=== PATIENT | female | born 1945 | race Caucasian/White ===

== ENCOUNTER → 2017-04-11 | Outpatient (CLI) | payer MEDICARE ==
--- NOTE | 2017-04-12 10:30 | MM ---
Reason for exam: screening (asymptomatic). Last mammogram was performed 8 years and 9 months ago. History: Patient is postmenopausal and is nulliparous. Physical Findings: A clinical breast exam by your physician is recommended on an annual basis and results should be correlated with mammographic findings. MG 3D Screening Mammo W/Cad Bilateral CC and MLO view(s) were taken. Prior study comparison: July 15, 2008, bilateral diagnostic digital mammog. November 24, 2006, CAD bilateral diagnostic mammogram. No significant changes when compared with prior studies. ASSESSMENT: Benign, BI-RAD 2 RECOMMENDATION: Routine screening mammogram of both breasts in 1 year.
== END | disposition home or self-care (01) ==
LOC: RADMAMWWP 12:42
PROVIDERS: ATTEND Family Medicine
DX: Z12.31 Encounter for screening mammogram for malignant neoplasm of breast (principal)
CPT/HCPCS: 77063; G0202

== ENCOUNTER 2018-07-31 13:35 | Emergency (ER) | payer MEDICARE ==
[2018-07-31] MEDS ORDERED: OXYMETAZOLINE 0.05% NASL SPRAY 1 SPRAY BOTTLE NASAL STA (14:23)
--- NOTE | 2018-07-31 14:44 | ED ---
ENT HPI - General Chief complaint: ENT Stated complaint: nose bleed Time Seen by Provider: 07/31/18 14:04 Source: patient, EMS Mode of arrival: EMS Limitations: physical limitation - History of Present Illness Initial comments: 72-year-old female patient with past medical history significant for atrial fibrillation with current use of Coumadin presents to the emergency department today for evaluation of epistaxis. Patient states she has had a constant nosebleed since 9:30 this morning. States that this is her third nosebleed over the last 3-4 months. States that her physician believes is related to the weather. Patient denies any dizziness or weakness with this. States most of the bleeding is coming from the right side. She denies any nausea or vomiting. Denies any signs of bleeding from anywhere else. She does have a colostomy states that her most recent output has been dark in color. Patient denies any recent rash, shortness breath, chest pain, abdominal pain, diarrhea, constipation, back pain, numbness, tingling, dizziness, weakness, hematuria, dysuria, urinary urgency, urinary frequency, headache, visual changes, or any other complaints. - Related Data Home Medications Medication Instructions Recorded Confirmed ALPRAZolam [Xanax] 0.25 mg PO DAILY PRN 07/31/18 07/31/18 Atorvastatin [Lipitor] 40 mg PO MOWESA 07/31/18 07/31/18 Digoxin [Digitek] 125 mcg PO HS 07/31/18 07/31/18 Furosemide [Lasix] 20 mg PO DAILY 07/31/18 07/31/18 Warfarin [Coumadin] 5 mg PO DAILY@1500 07/31/18 07/31/18 oxyCODONE HCL/ACETAMINOPHEN 1 tab PO TID PRN 07/31/18 07/31/18 [Percocet 7.5-325 mg] Allergies Allergy/AdvReac Type Severity Reaction Status Date / Time sertraline [From Zoloft] Allergy Unknown Verified 07/31/18 14:06 Review of Systems ROS Statement: Those systems with pertinent positive or pertinent negative responses have been documented in the HPI. ROS Other: All systems not noted in ROS Statement are negative. Past Medical History Past Medical History: Atrial Fibrillation History of Any Multi-Drug Resistant Organisms: None Reported Additional Past Surgical History / Comment(s): collostomy Past Psychological History: No Psychological Hx Reported Smoking Status: Never smoker Past Alcohol Use History: None Reported Past Drug Use History: None Reported General Exam Limitations: physical limitation General appearance: alert, in no apparent distress, other (This is a well- developed, well-nourished elderly female patient in no acute distress. Vital signs upon presentation are temperature 98.3F, pulse 105, respirations 19, blood pressure 178/97, pulse ox 96% on room air.) Eye exam: Present: normal appearance, PERRL, EOMI. Absent: scleral icterus, conjunctival injection, periorbital swelling ENT exam: Present: mucous membranes moist, other (Patient has bleeding from the right nostril). Absent: normal exam, normal oropharynx Respiratory exam: Present: normal lung sounds bilaterally. Absent: respiratory distress, wheezes, rales, rhonchi, stridor Cardiovascular Exam: Present: regular rate, normal rhythm, normal heart sounds. Absent: systolic murmur, diastolic murmur, rubs, gallop, clicks GI/Abdominal exam: Present: soft, normal bowel sounds. Absent: distended, tenderness, guarding, rebound, rigid Neurological exam: Present: alert, oriented X3, CN II-XII intact Psychiatric exam: Present: normal affect, normal mood Skin exam: Present: warm, dry, intact, normal color. Absent: rash Course Vital Signs 07/31/18 13:46 Temperature 98.3 F Pulse Rate 105 H Respiratory 19 Rate Blood Pressure 178/97 O2 Sat by Pulse 96 Oximetry Medical Decision Making - Medical Decision Making 72-year-old female patient presented to the emergency department today for evaluation of right nasal epistaxis. Physical examination did reveal active bleeding from the right nostril. Was unable to visualize the area of the bleeding. We did have patient blow out all clots, we instilled nasal Afrin and applied pressure for 20 minutes. This was sufficient to get the bleeding to cease. We did check INR which was 4.3. She is instructed to hold Coumadin for the next 2 doses. She is instructed to call her job interviewer's the morning and inform them of her level. We did discuss management of epistaxis at home, she is instructed to return if she is unable to get the bleeding to stop utilizing these methods. She is instructed use nasal saline 2-3 times daily to keep nasal passages moist also use humidifier at home. Return parameters were discussed in detail. She verbalizes understanding and agrees with this plan. - Lab Data Result diagrams: 07/31/18 15:06 Lab Results 07/31/18 07/31/18 Range/Units 15:06 15:06 WBC 9.0 (3.8-10.6) k/uL RBC 4.38 (3.80-5.40) m/uL Hgb 13.1 (11.4-16.0) gm/dL Hct 39.6 (34.0-46.0) % MCV 90.3 (80.0-100.0) fL MCH 29.9 (25.0-35.0) pg MCHC 33.1 (31.0-37.0) g/dL RDW 14.1 (11.5-15.5) % Plt Count 196 (150-450) k/uL Neutrophils % 83 % Lymphocytes % 10 % Monocytes % 5 % Eosinophils % 1 % Basophils % 0 % Neutrophils # 7.4 (1.3-7.7) k/uL Lymphocytes # 0.9 L (1.0-4.8) k/uL Monocytes # 0.5 (0-1.0) k/uL Eosinophils # 0.1 (0-0.7) k/uL Basophils # 0.0 (0-0.2) k/uL PT 40.9 H (9.0-12.0) sec INR 4.3 H (<1.2) Disposition Clinical Impression: Epistaxis Disposition: HOME SELF-CARE Condition: Good Instructions (If sedation given, give patient instructions): Nosebleed (ED) Additional Instructions: Use nasal saline to both nasal passages three times per day. Follow up with your primary care physician for recheck in 1-2 days. Return to the emergency department immediately for any new, worsening, or concerning symptoms. Is patient prescribed a controlled substance at d/c from ED?: No Referrals: Nayeli Costa MD [Primary Care Provider] - 1-2 days Time of Disposition: 16:17
[2018-07-31 15:25] LABS: Basophils % (A) 0 %; Eosinophils # (A) 0.1 k/uL (0-0.7); Eosinophils % (A) 1 %; HCT 39.6 % (34.0-46.0); HGB 13.1 gm/dL (11.4-16.0); Lymphocytes # (A) 0.9 k/uL (1.0-4.8); Lymphocytes % (A) 10 %; MCH 29.9 pg (25.0-35.0); MCHC 33.1 g/dL (31.0-37.0); MCV 90.3 fL (80.0-100.0); Mean Platelet Volume 6.9; Monocytes # (A) 0.5 k/uL (0-1.0); Monocytes % (A) 5 %; Neutrophils # (A) 7.4 k/uL (1.3-7.7); Neutrophils % (A) 83 %; Platelet Count 196 k/uL (150-450); RBC 4.38 m/uL (3.80-5.40); RDW 14.1 % (11.5-15.5)
[2018-07-31 15:35] LABS: INR 4.3 (<1.2); Prothrombin Time 40.9 sec (9.0-12.0)
[2018-07-31] MEDS ORDERED: SALINE NASAL GEL 14.1 GM TUBE TOPICAL STA (16:15)
[2018-07-31 16:28] VITALS: BP 159/73; PULSE 99; RESP 17; TEMP 98.4
== END 2018-07-31 16:36 | disposition home or self-care (01) ==
LOC: EC 13:35
DX: R04.0 Epistaxis (principal); R79.1 Abnormal coagulation profile; I48.91 Unspecified atrial fibrillation; Z79.01 Long term (current) use of anticoagulants; Z79.899 Other long term (current) drug therapy; Z88.8 Allergy status to other drugs, medicaments and biological substances; Z93.3 Colostomy status
CPT/HCPCS: 36415; 85025; 85610; 99283

== ENCOUNTER 2018-08-10 15:47 | Emergency (ER) | payer MEDICARE ==
[2018-08-10 16:05] VITALS: TEMP 98.3
--- NOTE | 2018-08-10 16:43 | ED ---
Extremity Problem HPI - General Chief complaint: Extremity Problem,Nontraumatic Stated complaint: Swollen legs Time Seen by Provider: 08/10/18 16:12 Source: patient Mode of arrival: ambulatory Limitations: no limitations - History of Present Illness Initial comments: Patient is a 72-year-old female presenting for lower extremity edema and swelling. She also states that she is having some nerve pain on the left leg. She states that she saw the PCP 3-4 weeks ago and was started on water pills. She didn't follow up with surgery specialist and they said that that swelling was not very significant and to continue the diuretics. They set her up with an echocardiogram as well as a 24-hour monitor but she was unable to complete this because of the inclement weather. She decided come in today because she called her orthopedist and talk to the nurse and they suggested that they come into the ER for further evaluation. She denies any chest pain or shortness of breath and states that she takes warfarin with her last INR being in the low 4' s. She also states that she had a lower extremity bilateral Doppler performed a couple weeks ago and it was negative for DVT. - Related Data Home Medications Medication Instructions Recorded Confirmed ALPRAZolam [Xanax] 0.25 mg PO DAILY PRN 07/31/18 08/10/18 Atorvastatin [Lipitor] 40 mg PO MOWESA 07/31/18 08/10/18 Digoxin [Digitek] 125 mcg PO HS 07/31/18 08/10/18 Furosemide [Lasix] 20 mg PO DAILY 07/31/18 08/10/18 Warfarin [Coumadin] 5 mg PO SUTUTHSA 07/31/18 08/10/18 oxyCODONE HCL/ACETAMINOPHEN 1 tab PO TID PRN 07/31/18 08/10/18 [Percocet 7.5-325 mg] Cyclobenzaprine [Flexeril] 10 mg PO HS 08/10/18 08/10/18 Metoprolol Succinate (ER) [Toprol 50 mg PO DAILY 08/10/18 08/10/18 XL] Nystatin 100,000 Unit/gm Powd 1 applic TOPICAL DAILY PRN 08/10/18 08/10/18 [Mycostatin Powder] Warfarin [Coumadin] 2.5 mg PO MOWEFR 08/10/18 08/10/18 Allergies Allergy/AdvReac Type Severity Reaction Status Date / Time sertraline [From Zoloft] Allergy Unknown Verified 08/10/18 16:52 Review of Systems ROS Statement: Those systems with pertinent positive or pertinent negative responses have been documented in the HPI. Constitutional: Negative for chills, fatigue and fever. HENT: Negative for congestion. Respiratory: Negative for chest tightness, shortness of breath and wheezing. Negative for cough Cardiovascular: Negative for chest pain and palpitations. Positive for lower extremity swelling Gastrointestinal: Negative for abdominal pain. Negative for abdominal distention , diarrhea, nausea and vomiting. Genitourinary: Negative for dysuria. Musculoskeletal: Negative for back pain, neck pain and neck stiffness. Negative for knee pain. Positive for "nerve pain" Skin: Negative for color change. Neurological: Negative for dizziness, speech difficulty, weakness and light- headedness. Psychiatric/Behavioral: Negative for agitation and confusion. Negative for anxiety ROS Other: All systems not noted in ROS Statement are negative. Past Medical History Past Medical History: Atrial Fibrillation History of Any Multi-Drug Resistant Organisms: None Reported Additional Past Surgical History / Comment(s): collostomy Past Psychological History: No Psychological Hx Reported Smoking Status: Never smoker Past Alcohol Use History: None Reported Past Drug Use History: None Reported General Exam - General Exam Comments Initial Comments: Constitutional: Pt appears well-developed and well-nourished. No distress. Head: Normocephalic and atraumatic. Eyes: EOM are normal. Neck: Normal range of motion. Neck supple. Cardiovascular: Normal rate, regular rhythm, S1 normal, S2 normal and normal heart sounds. Exam reveals no gallop and no friction rub. No murmur heard. No lower extremity edema noted Pulmonary/Chest: Effort normal and breath sounds normal. No tachypnea and no bradypnea. No respiratory distress. No wheezes or rales noted. Abdominal: Soft. Bowel sounds are normal. Pt exhibits no shifting dullness, no distension, no pulsatile liver, no fluid wave, no abdominal bruit and no ascites. There is no rigidity, no rebound, no guarding, no tenderness at McBurney's point and negative Jameson's sign. There is no tenderness. Musculoskeletal: Normal range of motion. No tenderness to either knee. Neurological: Pt is alert and oriented to person, place, and time. No cranial nerve deficit. Skin: Skin is warm and dry. No rash noted. Pt is not diaphoretic. No erythema. No pallor. Psychiatric: Pt has a normal mood and affect. Pt behavior is normal. Thought content normal. Limitations: no limitations Course Vital Signs 08/10/18 08/10/18 16:00 18:02 Temperature 98.3 F Pulse Rate 89 69 Respiratory 20 18 Rate Blood Pressure 130/74 151/51 O2 Sat by Pulse 100 97 Oximetry Medical Decision Making - Medical Decision Making Laboratory studies showed that there is no significant electrolyte derangements and hemoglobin was stable 12.8. INR was also measure 1.8 and from a cardiac standpoint, BNP was 614 and troponin was negative. Only one troponin was performed as there was no active chest pain or shortness of breath recently. Lotrimin Dopplers were not performed as the patient stated that she had this recently performed and were negative.It was explained that while there does not appear to be an emergent process, the etiology of the symptoms are still unclear but possibly related to arthritis and may need further workup as an outpatient if symptoms continue. Explained all labs and diagnostic test results and that we will discharge the patient home and patient is to follow up with PCP in 1-2 days and return to the ED if symptoms worsen. Pt is agreeable to plan. - Lab Data Result diagrams: 08/10/18 17:33 08/10/18 17:33 Lab Results 08/10/18 08/10/18 08/10/18 Range/Units 17:33 17:33 17:33 WBC 8.2 (3.8-10.6) k/uL RBC 4.34 (3.80-5.40) m/uL Hgb 12.8 (11.4-16.0) gm/dL Hct 40.0 (34.0-46.0) % MCV 92.1 (80.0-100.0) fL MCH 29.5 (25.0-35.0) pg MCHC 32.0 (31.0-37.0) g/dL RDW 14.0 (11.5-15.5) % Plt Count 235 (150-450) k/uL Neutrophils % 75 % Lymphocytes % 17 % Monocytes % 6 % Eosinophils % 1 % Basophils % 1 % Neutrophils # 6.1 (1.3-7.7) k/uL Lymphocytes # 1.4 (1.0-4.8) k/uL Monocytes # 0.5 (0-1.0) k/uL Eosinophils # 0.1 (0-0.7) k/uL Basophils # 0.0 (0-0.2) k/uL PT (9.0-12.0) sec INR (<1.2) APTT (22.0-30.0) sec Sodium 140 (137-145) mmol/L Potassium 4.0 (3.5-5.1) mmol/L Chloride 104 (98-107) mmol/L Carbon Dioxide 27 (22-30) mmol/L Anion Gap 9 mmol/L BUN 11 (7-17) mg/dL Creatinine 0.64 (0.52-1.04) mg/dL Est GFR (CKD-EPI)AfAm >90 (>60 ml/min/1.73 sqM) Est GFR (CKD-EPI)NonAf 88 (>60 ml/min/1.73 sqM) Glucose 95 (74-99) mg/dL Calcium 9.2 (8.4-10.2) mg/dL Magnesium 1.9 (1.6-2.3) mg/dL Total Bilirubin 0.8 (0.2-1.3) mg/dL AST 22 (14-36) U/L ALT 34 (9-52) U/L Alkaline Phosphatase 86 (38-126) U/L Troponin I (0.000-0.034) ng/mL NT-Pro-B Natriuret Pep 614 pg/mL Total Protein 6.3 (6.3-8.2) g/dL Albumin 3.8 (3.5-5.0) g/dL 08/10/18 08/10/18 Range/Units 17:33 17:33 WBC (3.8-10.6) k/uL RBC (3.80-5.40) m/uL Hgb (11.4-16.0) gm/dL Hct (34.0-46.0) % MCV (80.0-100.0) fL MCH (25.0-35.0) pg MCHC (31.0-37.0) g/dL RDW (11.5-15.5) % Plt Count (150-450) k/uL Neutrophils % % Lymphocytes % % Monocytes % % Eosinophils % % Basophils % % Neutrophils # (1.3-7.7) k/uL Lymphocytes # (1.0-4.8) k/uL Monocytes # (0-1.0) k/uL Eosinophils # (0-0.7) k/uL Basophils # (0-0.2) k/uL PT 17.8 H (9.0-12.0) sec INR 1.8 H (<1.2) APTT 30.8 H (22.0-30.0) sec Sodium (137-145) mmol/L Potassium (3.5-5.1) mmol/L Chloride (98-107) mmol/L Carbon Dioxide (22-30) mmol/L Anion Gap mmol/L BUN (7-17) mg/dL Creatinine (0.52-1.04) mg/dL Est GFR (CKD-EPI)AfAm (>60 ml/min/1.73 sqM) Est GFR (CKD-EPI)NonAf (>60 ml/min/1.73 sqM) Glucose (74-99) mg/dL Calcium (8.4-10.2) mg/dL Magnesium (1.6-2.3) mg/dL Total Bilirubin (0.2-1.3) mg/dL AST (14-36) U/L ALT (9-52) U/L Alkaline Phosphatase (38-126) U/L Troponin I <0.012 (0.000-0.034) ng/mL NT-Pro-B Natriuret Pep pg/mL Total Protein (6.3-8.2) g/dL Albumin (3.5-5.0) g/dL - EKG Data EKG Comments: EKG shows atrial fibrillation with a rate of 73 bpm, QRS 83, QTC 414. Disposition Clinical Impression: Leg swelling, Knee pain, acute Disposition: HOME SELF-CARE Condition: Poor Instructions (If sedation given, give patient instructions): Leg Edema (ED), Knee Pain (ED) Is patient prescribed a controlled substance at d/c from ED?: No Referrals: Nayeli Costa MD [Primary Care Provider] - 1-2 days Time of Disposition: 19:10
[2018-08-10 17:56] LABS: Basophils % (A) 1 %; Eosinophils # (A) 0.1 k/uL (0-0.7); Eosinophils % (A) 1 %; HGB 12.8 gm/dL (11.4-16.0); Lymphocytes # (A) 1.4 k/uL (1.0-4.8); Lymphocytes % (A) 17 %; MCH 29.5 pg (25.0-35.0); MCV 92.1 fL (80.0-100.0); Mean Platelet Volume 7.2; Monocytes # (A) 0.5 k/uL (0-1.0); Monocytes % (A) 6 %; Neutrophils # (A) 6.1 k/uL (1.3-7.7); Neutrophils % (A) 75 %; Platelet Count 235 k/uL (150-450); RBC 4.34 m/uL (3.80-5.40); WBC 8.2 k/uL (3.8-10.6)
[2018-08-10 18:04] VITALS: BP 151/51; PULSE 69; RESP 18
[2018-08-10 18:09] LABS: ALT 34 U/L (9-52); AST 22 U/L (14-36); Albumin 3.8 g/dL (3.5-5.0); Alkaline Phosphatase 86 U/L (38-126); Anion Gap 9 mmol/L; Blood Urea Nitrogen 11 mg/dL (7-17); Calcium 9.2 mg/dL (8.4-10.2); Carbon Dioxide 27 mmol/L (22-30); Chloride 104 mmol/L (98-107); Glucose 95 mg/dL (74-99); Magnesium 1.9 mg/dL (1.6-2.3); Sodium 140 mmol/L (137-145); Total Bilirubin 0.8 mg/dL (0.2-1.3); Total Protein 6.3 g/dL (6.3-8.2)
[2018-08-10 18:23] LABS: INR 1.8 (<1.2); Partial Thromboplastin Time 30.8 sec (22.0-30.0); Prothrombin Time 17.8 sec (9.0-12.0)
--- NOTE | 2018-08-10 18:23 | XR ---
EXAMINATION TYPE: XR chest 2V DATE OF EXAM: 08/10/2018 COMPARISON: 05/25/2011 HISTORY: Atrial fibrillation TECHNIQUE: Frontal and lateral views of the chest are obtained. FINDINGS: Heart is normal. Lungs are clear of consolidation. Costophrenic angles are clear. There ar e chest leads. Thoracic aorta is atheromatous. IMPRESSION: No active cardiopulmonary disease. No change.
== END 2018-08-10 20:19 | disposition home or self-care (01) ==
LOC: EC 15:47
DX: M79.89 Other specified soft tissue disorders (principal); M25.569 Pain in unspecified knee; I48.91 Unspecified atrial fibrillation; M79.2 Neuralgia and neuritis, unspecified; Z88.8 Allergy status to other drugs, medicaments and biological substances; Z79.01 Long term (current) use of anticoagulants; Z79.899 Other long term (current) drug therapy
CPT/HCPCS: 36415; 71046; 80053; 83735; 83880; 84484; 85025; 85610; 85730; 93005; 99284

== ENCOUNTER → 2019-05-10 | Outpatient (CLI) | payer MEDICARE ==
--- NOTE | 2019-05-13 11:03 | MM ---
Reason for exam: screening (asymptomatic). Last mammogram was performed 2 years and 1 month ago. History: Patient is postmenopausal and is nulliparous. Physical Findings: A clinical breast exam by your physician is recommended on an annual basis and results should be correlated with mammographic findings. MG 3D Screening Mammo W/Cad Bilateral CC and MLO view(s) were taken. Prior study comparison: April 11, 2017, bilateral MG 3d screening mammo w/cad. July 15, 2008, bilateral diagnostic digital mammog. The breast tissue is heterogeneously dense. This may lower the sensitivity of mammography. Stable benign calcifications. There is no discrete abnormality. No significant changes when compared with prior studies. ASSESSMENT: Benign, BI-RAD 2 RECOMMENDATION: Routine screening mammogram of both breasts in 1 year.
== END | disposition home or self-care (01) ==
LOC: RADMAMWWP 13:18
PROVIDERS: ATTEND Obstetrics & Gynecology
DX: Z12.31 Encounter for screening mammogram for malignant neoplasm of breast (principal)
CPT/HCPCS: 77063; 77067

== ENCOUNTER → 2021-11-29 | Outpatient (CLI) | payer MEDICARE ==
--- NOTE | 2021-12-09 14:45 | US ---
EXAMINATION TYPE: US arterial LE single level DATE OF EXAM: 11/29/2021 3:47 PM CLINICAL HISTORY: R60.0 LOCALIZED EDEMA. Calf pain, claudication, PAD, hyperlipidemia, rest pain. Doppler Waveforms: Right: Multiphasic Left: Multiphasic Pulse Volume Recording: Pressure Gradients: Limited evaluation on the right Ankle-Brachial Indices: Right: CNO, patient also had difficulty tolerating cuff pressure. Left: 1.10 Toe Brachial Indices: Right: 0.89 Left: 0.87 Limited due to patient's pain level and movement. IMPRESSION: Exam is limited. Normal ankle-brachial index on the left
== END | disposition home or self-care (01) ==
LOC: RADUSWWP 14:34
PROVIDERS: ATTEND Internal Medicine
DX: I35.0 Nonrheumatic aortic (valve) stenosis (principal)
CPT/HCPCS: 93922

== ENCOUNTER → 2021-12-14 | Outpatient (CLI) | payer MEDICARE ==
--- NOTE | 2021-12-14 17:21 | CA ---
Transthoracic Echo Report Name: Tuyet Garcia Age: 76 Gender: F : 1945 Exam Date: 12/14/2021 15:01 Exam Location: [facility] Ht (in): 62 Wt (lb): 328 Ordering Physician: Min Patterson DO ([email or web address]) Attending/Referring Phys: Protein Scientist Jamilah Horton RDCS Procedure CPT: Indications: I35.0 aortic stenosis Cardiac Hx: Technical Quality: Fair Contrast 1: Total Dose (mL): Contrast 2: Total Dose (mL): MEASUREMENTS (Male / Female) Normal Values 2D ECHO LV Diastolic Diameter PLAX 3.8 cm 4.2 - 5.9 / 3.9 - 5.3 cm LV Systolic Diameter PLAX 2.4 cm IVS Diastolic Thickness 1.3 cm 0.6 - 1.0 / 0.6 - 0.9 cm LVPW Diastolic Thickness 1.3 cm 0.6 - 1.0 / 0.6 - 0.9 cm LV Relative Wall Thickness 0.7 RV Internal Dim ED PLAX 3.3 cm LA Systolic Diameter LX 4.3 cm 3.0 - 4.0 / 2.7 - 3.8 cm LA Volume 103.7 cm??? 18 - 58 / 22 - 52 cm??? M-MODE Aortic Root Diameter MM 2.8 cm MV E Point Septal Separation 0.5 cm AV Cusp Separation MM 1.7 cm DOPPLER AV Peak Velocity 339.5 cm/s AV Peak Gradient 46.1 mmHg AV Mean Velocity 237.9 cm/s AV Mean Gradient 25.6 mmHg AV Velocity Time Integral 63.9 cm LVOT Peak Velocity 108.3 cm/s LVOT Peak Gradient 4.7 mmHg MV Area PHT 3.5 cm??? MV Deceleration Time 265.1 ms TR Peak Velocity 285.8 cm/s TR Peak Gradient 32.7 mmHg Right Ventricular Systolic Press 37.7 mmHg FINDINGS Left Ventricle Left ventricular ejection fraction is estimated at 55-60 %. Left ventricular cavity size normal. Mild concentric left ventricular hypertrophy. Right Ventricle Mild right ventricular dilatation. Mild pulmonary hypertension. Right Atrium Normal right atrial size. Left Atrium Moderately increased left atrial diameter. Severely increased left atrial volume. Moderately increased left atrial area. PFO noted Mitral Valve Mitral valve thickened. Mitral annular calcification. Mild mitral regurgitation. Aortic Valve Moderate aortic valve sclerosis. Moderate aortic stenosis with a peak gradient of 46 mmHg and a mean gradient of 26 mmHg. No aortic regurgitation. Tricuspid Valve Mild tricuspid regurgitation. Pulmonic Valve Trace pulmonic regurgitation. Pericardium Normal pericardium. No pericardial effusion. Aorta Normal size aortic root and proximal ascending aorta. CONCLUSIONS Concentric left ventricular hypertrophy with normal LV systolic function Moderate aortic stenosis Mild mitral regurgitation Evidence of [id number] shunt Consider transesophageal echo for further evaluation Previewed by: Dr. Jad Cardoza MD (Electronically Signed) Final Date: 14 December 2021 17:20
--- NOTE | 2021-12-15 05:07 | XR ---
EXAMINATION TYPE: XR chest 2V DATE OF EXAM: 12/14/2021 COMPARISON: 08/10/2018 HISTORY: 76-year-old female J20.9, acute bronchitis TECHNIQUE: Frontal and lateral views FINDINGS: Slight leftward patient rotation. Slight dextroconvex iliopsoas mid to lower thoracic spine. Heart donta rderline enlarged. Some peribronchial cuffing and mild interstitial prominence is noted. No edith con solidation or pleural effusion. Moderate degenerative disc disease midthoracic spine. IMPRESSION: Borderline heart size. Some interstitial prominence and peribronchial cuffing can be seen with bronch itis or chronic asthma. No definite focal infiltrate.
== END | disposition home or self-care (01) ==
LOC: RADECHMAIN 14:31
PROVIDERS: ATTEND Internal Medicine
DX: I35.0 Nonrheumatic aortic (valve) stenosis (principal); J20.9 Acute bronchitis, unspecified
CPT/HCPCS: 71046; 93306

== ENCOUNTER → 2022-12-07 | Outpatient (CLI) | payer MEDICARE ==
--- NOTE | 2022-12-07 15:27 | BD ---
EXAMINATION TYPE: Axial Bone Density DATE OF EXAM: 12/07/2022 CLINICAL HISTORY: 77 years old Female. ICD-10 CODE: N95.1 Menopausal state Height: 59 Weight: 247 FRAX RISK QUESTIONS: Family History (Parent hip fracture): no History of Fracture in Adulthood: yes, rt ankle 1996 AA Secondary Osteoporosis: no Rheumatoid Arthritis: no RISK FACTORS HISTORY OF: Family History of Osteoporosis: no Active: no Diet low in dairy products/other sources of calcium: no Postmenopausal woman: yes, age 44 Lost more than 2 inches in height since high school: yes ,was 60 Frequent falls: no Poor Health: no MEDICATIONS: Additional Medications: yes pain, cholesterol, heart meds, Neurontin, vit d , zinc EXAM MEASUREMENTS: Bone mineral densitometry was performed using the extraTKT System. Bone mineral density as measured about the Lumbar spine is: ----- L1-L4(G/cm2): 1.367 T Score Values are as follows: ----- L1: 0.2 ----- L2: 1.6 ----- L3: 2.3 ----- L4: 1.9 ----- L1-L4: 1.6 Z Score Values are as follows: ----- L1: 0.9 ----- L2: 2.2 ----- L3: 3.0 ----- L4: 2.5 ----- L1-L4: 2.2 Bone mineral density has: Increased 20.7% since study of: 03/12/2001 Bone mineral density about the R hip (g/cm2): 0.826 Bone mineral density about the L hip (g/cm2): 0.785 T Score values are as follows: -----R Neck: -2.7 -----L Neck: -2.2 -----R Total: -1.4 -----L Total: -1.8 Z Score values are as follows: -----R Neck: -1.4 -----L Neck: -0.8 -----R Total: -0.3 -----L Total: -0.6 Bone mineral density has: Decreased 17.9% since study of: 03/12/2001 FRAX%s: The graph provided illustrates a 23.9% chance for a major osteoporotic fx and a 7.4% chance f or the hips probability for fx in 10 years time. IMPRESSION: Osteoporosis (T Score less than -2.5). There is increased fracture risk and therapy is usually indicated based on age. Re-Screen 1-2 years. NOTE: T-SCORE=SD OF THE YOUNG ADULT MEAN.
== END | disposition home or self-care (01) ==
LOC: RADBDWWP 10:58
PROVIDERS: ATTEND Family Medicine
DX: M81.0 Age-related osteoporosis without current pathological fracture (principal); M85.88 Other specified disorders of bone density and structure, other site; Z78.0 Asymptomatic menopausal state
CPT/HCPCS: 77080

== ENCOUNTER 2023-07-30 17:44 | Emergency (ER) | payer MEDICARE ==
--- NOTE | 2023-07-30 18:05 | ED ---
SOB HPI - General Stated Complaint: [place] Time Seen by Provider: 07/30/23 18:02 Source: patient, EMS, RN notes reviewed - History of Present Illness Initial Comments: Patient is a 77-year-old female presented to ER with chief complaint of dyspnea. Patient has a past medical history significant for atrial fibrillation on Coumadin, congestive heart failure, leaky heart valve. She also take digixon and lasix. Patient follows up with Dr. Patterson. Patient states she saw him on July 10, 2023 and an echo was scheduled for August. Patient states for the past 2 months and especially in the past couple of weeks she has been having increase in dyspnea especially with exertion. Patient states she is having difficulty walking from her living room to the bathroom without getting short of breath. Patient also was endorsing bilateral lower extremity edema worse than normal. Patient denies home O2 use. She does report she normally sleeps flat but has been using 1 pillow to sleep on due to shortness of breath. Patient denies any chest pain, fevers, night sweats, wheezing. Patient states yesterday and today she felt mildly chilled. Patient denies any abdominal pain, urinary complaints, melena, hematuria. - Related Data Home Medications Medication Instructions Recorded Confirmed ALPRAZolam [Xanax] 0.125 - 0.25 mg PO DAILY PRN 07/31/18 07/30/23 Warfarin [Coumadin] 5 mg PO SUTUTHSA 07/31/18 07/30/23 Metoprolol Succinate (ER) [Toprol 50 mg PO DAILY 08/10/18 07/30/23 XL] Acetaminophen [Tylenol Arthritis] 1,300 mg PO BID 07/30/23 07/30/23 Ascorbic Acid [Vitamin C] 1,000 mg PO DAILY 07/30/23 07/30/23 Ezetimibe [Zetia] 10 mg PO DAILY 07/30/23 07/30/23 Metoprolol Succinate (ER) [Toprol 50 mg PO DAILY PRN 07/30/23 07/30/23 Xl] Vitamin B Complex 1 cap PO DAILY 07/30/23 07/30/23 Vitamin E (Dl,Tocopheryl Acet) 400 unit PO DAILY 07/30/23 07/30/23 [Vitamin E (400 Iu = 180 mg)] Warfarin [Coumadin] 7.5 mg PO MOWEFR 07/30/23 07/30/23 Zinc Gluconate [Zinc] 50 mg PO DAILY 07/30/23 07/30/23 Allergies Allergy/AdvReac Type Severity Reaction Status Date / Time sertraline [From Zoloft] Allergy Unknown Verified 07/30/23 19:21 Review of Systems ROS Statement: Those systems with pertinent positive or pertinent negative responses have been documented in the HPI. ROS Other: All systems not noted in ROS Statement are negative. Past Medical History Past Medical History: Atrial Fibrillation History of Any Multi-Drug Resistant Organisms: None Reported Additional Past Surgical History / Comment(s): collostomy Past Psychological History: No Psychological Hx Reported Past Alcohol Use History: None Reported Past Drug Use History: None Reported General Exam General appearance: alert, in no apparent distress Head exam: Present: atraumatic, normocephalic, normal inspection Eye exam: Present: normal appearance, PERRL, EOMI. Absent: scleral icterus, conjunctival injection, periorbital swelling ENT exam: Present: normal exam, mucous membranes moist Respiratory exam: Present: normal lung sounds bilaterally. Absent: respiratory distress, wheezes, rales, rhonchi, stridor Cardiovascular Exam: Present: regular rate, normal rhythm, systolic murmur GI/Abdominal exam: Present: soft, normal bowel sounds. Absent: distended, tenderness, guarding, rebound, rigid Extremities exam: Present: normal inspection, full ROM, normal capillary refill, pedal edema (Bilateral nonpitting edema lower extremities). Absent: tenderness, joint swelling, calf tenderness Neurological exam: Present: alert, oriented X3, CN II-XII intact Psychiatric exam: Present: normal affect, normal mood Skin exam: Present: warm, dry, intact, normal color. Absent: rash Course Vital Signs 07/30/23 07/30/23 07/30/23 17:45 18:32 20:42 Temperature 98.0 F Pulse Rate 95 71 Respiratory 16 16 18 Rate Blood Pressure 193/67 127/75 O2 Sat by Pulse 95 100 Oximetry Medical Decision Making - Medical Decision Making Was pt. sent in by a medical professional or institution (, PA, TRANSPORT DRIVER, urgent care, hospital, or [facility]...) When possible be specific @ -No Did you speak to anyone other than the patient for history (EMS, parent, family, police, friend...)? What history was obtained from this source @ -No Did you review nursing and triage notes (agree or disagree)? Why? @ -I reviewed and agree with nursing and triage notes Were old charts reviewed (outside hosp., previous admission, EMS record, old EKG, old radiological studies, urgent care reports/EKG's, [facility] records)? Report findings @ -No old charts were reviewed Differential Diagnosis (chest pain, altered mental status, abdominal pain women, abdominal pain men, vaginal bleeding, weakness, fever, dyspnea, syncope, headache, dizziness, GI bleed, back pain, seizure, CVA, palpatations, mental health, musculoskeletal)? @ -Differential Dyspnea: Coronary syndrome, arrhythmia, tamponade, asthma, COPD, pulmonary embolism, pneumonia, pneumothorax, pulmonary effusion, anaphylaxis, diabetic ketoacidosis, flailed chest, pulmonary contusion, diaphragmatic rupture, anemia, neuromuscular, this is not meant to be an all- inclusive list. EKG interpreted by me (3pts min.). @ -As above X-rays interpreted by me (1pt min.). @ -Chest x-ray interpreted by me shows mild cardiomegaly without evidence of decompensated CHF or focal lung consolidations. CT interpreted by me (1pt min.). @ -None done U/S interpreted by me (1pt. min.). @ -None done What testing was considered but not performed or refused? (CT, X-rays, U/S, labs)? Why? @ -None What meds were considered but not given or refused? Why? @ -None Did you discuss the management of the patient with other professionals (professionals i.e. , PA, TRANSPORT DRIVER, lab, RT, psych nurse, social services analyst, septic tank setter, teacher, natural resource officer, insurance case manager)? Give summary @ -Yes, I discussed this case with Philippe Ji who accepted transfer. Was smoking cessation discussed for >3mins.? @ -No Was critical care preformed (if so, how long)? @ -No Were there social determinants of health that impacted care today? How? (Homelessness, low income, unemployed, alcoholism, drug addiction, tr ansportation, low edu. Level, literacy, decrease access to med. care, usp, rehab)? @ -No Was there de-escalation of care discussed even if they declined (Discuss DNR or withdrawal of care, Hospice)? DNR status @ -No What co-morbidities impacted this encounter? (DM, HTN, Smoking, COPD, CAD, Cancer, CVA, ARF, Chemo, Hep., AIDS, mental health diagnosis, sleep apnea, morbid obesity)? @ -Atrial fibrillation, CHF, hypertension, obesity Was patient admitted / discharged? Hospital course, mention meds given and route, prescriptions, significant lab abnormalities, going to OR and other pertinent info. @ -Transferred. Patient is a 77-year-old female presented to ER with chief complaint of dyspnea. Past medical history significant for atrial fibrillation on warfarin, CHF, aortic stenosis. Patient has been having worsening dyspnea for the past 2 months with increased symptoms in the past 2 weeks. Patient had echocardiogram scheduled in August by cardiology, Dr. Patterson. History and physical exam work completed. Vitals stable. Patient no signs of acute distress. Patient was mildly dyspneic on conversation. Patient's oxygen saturation 100% on 0.5 L. Patient not on oxygen at home. Patient does admit to orthopnea using 1 pillow as she normally lays flat. Patient also is endorsing nonpitting bilateral lower extremity edema. Labs obtained significant for hemoglobin of 7.7, INR 3.7, BNP 1980. Chest x-ray shows mild cardiomegaly without evidence of decompensated CHF or focal lung consolidation. EKG shows atrial fibrillation ventricular rate 90. Stool occult positive sample obtained from colostomy bag. Sampson catheter placed. Anemia believed to be due to GI blood loss. Due to concern for GI bleed and no GI services this week transfer was considered. Lab and imaging results discussed with patient, all questions answered. Patient agreeable for transfer. I discussed this case with Philippe Ji, transfer accepted. Dr. Pruitt accepting physician. Patient will be t ransferred in stable condition for further care and treatment. Patient expressed understanding and agreement with care plan. Undiagnosed new problem with uncertain prognosis? @ -No Drug Therapy requiring intensive monitoring for toxicity (Heparin, Nitro, Insulin, Cardizem)? @ -No Were any procedures done? @ -No Diagnosis/symptom? @ -Anemia/GI bleed Acute, or Chronic, or Acute on Chronic? @ -Acute Uncomplicated (without systemic symptoms) or Complicated (systemic symptoms)? @ -Complicated Side effects of treatment? @ -No Exacerbation, Progression, or Severe Exacerbation? @ -No Poses a threat to life or bodily function? How? (Chest pain, USA, CA, pneumonia, PE, COPD, DKA, ARF, appy, cholecystitis, CVA, Diverticulitis, Homicidal, Suicidal, threat to staff... and all critical care pts) @ -Yes, anemia can lead to hypoxia which can be life-threatening. - Lab Data Result diagrams: 07/30/23 18:05 07/30/23 18:05 Lab Results 07/30/23 07/30/23 07/30/23 Range/Units 18:05 18:05 18:05 WBC 6.2 (3.8-10.6) k/uL RBC 3.77 L (3.80-5.40) m/uL Hgb 7.7 L (11.4-16.0) gm/dL Hct 26.6 L (34.0-46.0) % MCV 70.7 L (80.0-100.0) fL MCH 20.5 L (25.0-35.0) pg MCHC 29.1 L (31.0-37.0) g/dL RDW 17.4 H (11.5-15.5) % Plt Count 215 (150-450) k/uL MPV 7.0 Hypochromasia Marked Poikilocytosis Slight Anisocytosis Slight Microcytosis Marked PT (10.0-12.5) sec INR (<1.2) APTT (22.0-30.0) sec Sodium 136 L (137-145) mmol/L Potassium 4.0 (3.5-5.1) mmol/L Chloride 106 (98-107) mmol/L Carbon Dioxide 23 (22-30) mmol/L Anion Gap 7 mmol/L BUN 16 (7-17) mg/dL Creatinine 0.43 L (0.52-1.04) mg/dL Est GFR (CKD-EPI)AfAm >90 (>60 ml/min/1.73 sqM) Est GFR (CKD-EPI)NonAf >90 (>60 ml/min/1.73 sqM) Glucose 102 H (74-99) mg/dL Calcium 9.1 (8.4-10.2) mg/dL Magnesium 1.8 (1.6-2.3) mg/dL Total Bilirubin 0.8 (0.2-1.3) mg/dL AST 27 (14-36) U/L ALT 15 (4-34) U/L Alkaline Phosphatase 76 (38-126) U/L Troponin I <0.012 (0.000-0.034) ng/mL NT-Pro-B Natriuret Pep 1980 pg/mL Total Protein 6.5 (6.3-8.2) g/dL Albumin 4.0 (3.5-5.0) g/dL Stool Occult Blood (Negative) Influenza Type A (PCR) (Not Detectd) Influenza Type B (PCR) (Not Detectd) RSV (PCR) (Not Detectd) SARS-CoV-2 (PCR) (Not Detectd) 07/30/23 07/30/23 07/30/23 Range/Units 18:05 18:05 19:47 WBC (3.8-10.6) k/uL RBC (3.80-5.40) m/uL Hgb (11.4-16.0) gm/dL Hct (34.0-46.0) % MCV (80.0-100.0) fL MCH (25.0-35.0) pg MCHC (31.0-37.0) g/dL RDW (11.5-15.5) % Plt Count (150-450) k/uL MPV Hypochromasia Poikilocytosis Anisocytosis Microcytosis PT 35.9 H (10.0-12.5) sec INR 3.7 H (<1.2) APTT 37.9 H (22.0-30.0) sec Sodium (137-145) mmol/L Potassium (3.5-5.1) mmol/L Chloride (98-107) mmol/L Carbon Dioxide (22-30) mmol/L Anion Gap mmol/L BUN (7-17) mg/dL Creatinine (0.52-1.04) mg/dL Est GFR (CKD-EPI)AfAm (>60 ml/min/1.73 sqM) Est GFR (CKD-EPI)NonAf (>60 ml/min/1.73 sqM) Glucose (74-99) mg/dL Calcium (8.4-10.2) mg/dL Magnesium (1.6-2.3) mg/dL Total Bilirubin (0.2-1.3) mg/dL AST (14-36) U/L ALT (4-34) U/L Alkaline Phosphatase (38-126) U/L Troponin I (0.000-0.034) ng/mL NT-Pro-B Natriuret Pep pg/mL Total Protein (6.3-8.2) g/dL Albumin (3.5-5.0) g/dL Stool Occult Blood Positive H (Negative) Influenza Type A (PCR) Not Detected (Not Detectd) Influenza Type B (PCR) Not Detected (Not Detectd) RSV (PCR) Not Detected (Not Detectd) SARS-CoV-2 (PCR) Not Detected (Not Detectd) - EKG Data -: EKG Interpreted by Me EKG Comments: EKG taken at 18: 15 shows atrial fibrillation with no acute ST segment changes. Ventricular rate 90, QRS duration 89, QT/QTc 343/390. - Radiology Data Radiology results: report reviewed, image reviewed Disposition Clinical Impression: Atrial fibrillation, Anemia, GI bleed, Aortic stenosis Disposition: OTHER INSTITUTION NOT DEFINED Condition: Fair Referrals: Brent Weaver [Primary Care Provider] - 1-2 days Time of Disposition: 20:57 - Out of Hospital Transfer - Req. Specs Out of Hospital Transfer - Requested Specifics: Other Emergency Center (GI consult)
[2023-07-30 18:33] LABS: Anisocytosis Slight; HCT 26.6 % (34.0-46.0); HGB 7.7 gm/dL (11.4-16.0); Hypochromasia Marked; MCH 20.5 pg (25.0-35.0); MCHC 29.1 g/dL (31.0-37.0); MCV 70.7 fL (80.0-100.0); Microcytosis Marked; Platelet Count 215 k/uL (150-450); Poikilocytosis Slight; RBC 3.77 m/uL (3.80-5.40); RDW 17.4 % (11.5-15.5); WBC 6.2 k/uL (3.8-10.6)
[2023-07-30 18:50] LABS: INR 3.7 (<1.2); Partial Thromboplastin Time 37.9 sec (22.0-30.0); Prothrombin Time 35.9 sec (10.0-12.5)
[2023-07-30 18:59] LABS: ALT 15 U/L (4-34); AST 27 U/L (14-36); African American GFR (CKD) >90 (>60 ml/min/1.73 sqM); Alkaline Phosphatase 76 U/L (38-126); Anion Gap 7 mmol/L; Blood Urea Nitrogen 16 mg/dL (7-17); Calcium 9.1 mg/dL (8.4-10.2); Carbon Dioxide 23 mmol/L (22-30); Chloride 106 mmol/L (98-107); Glucose 102 mg/dL (74-99); Magnesium 1.8 mg/dL (1.6-2.3); Non-African American GFR(CKD) >90 (>60 ml/min/1.73 sqM); Sodium 136 mmol/L (137-145); Total Bilirubin 0.8 mg/dL (0.2-1.3); Total Protein 6.5 g/dL (6.3-8.2)
[2023-07-30 19:07] LABS: NT-Pro-B-Type Natriuretic Pept 1980 pg/mL
--- NOTE | 2023-07-30 20:08 | XR ---
EXAMINATION TYPE: XR chest 2V DATE OF EXAM: 07/30/2023 7:16 PM CLINICAL INDICATION:Female, 77 years old with history of dyspnea; [facility] COMPARISON: 12/06/2021 TECHNIQUE: XR chest 2V. Frontal and lateral views of the chest.. FINDINGS: Lines/Tubes/Devices: EKG leads overlie the chest. No indwelling lines are seen. Heart/mediastinum: Heart appears mildly enlarged. Atherosclerotic calcifications are seen in the aor ta. Pulmonary vascularity: Not increased, Lungs/Pleura: Similar appearance of blunting of the left costophrenic angle, small pleural effusion v ersus chronic changes. Possible trace right pleural effusion. No visualized pneumothorax. No focal co nsolidation. Musculoskeletal: No acute osseous abnormality demonstrated in the limits of the exam. Moderate degen erative changes of the shoulders and spine. Other findings: None. IMPRESSION: 1. Mild cardiomegaly without evidence of decompensated CHF, or focal lung consolidation. 2. Similar appearance of the left costophrenic angle, small pleural effusion versus chronic changes. Possible trace right pleural effusion.
[2023-07-30 20:51] VITALS: BP 127/75; PULSE 71; RESP 18; TEMP 98
== END 2023-07-30 21:41 | disposition other institution (70) ==
LOC: EC 17:44
DX: I48.91 Unspecified atrial fibrillation (principal); K92.2 Gastrointestinal hemorrhage, unspecified; D64.9 Anemia, unspecified; I35.0 Nonrheumatic aortic (valve) stenosis; I11.0 Hypertensive heart disease with heart failure; I50.9 Heart failure, unspecified; E66.9 Obesity, unspecified; Z20.822 Contact with and (suspected) exposure to COVID-19; Z79.01 Long term (current) use of anticoagulants; Z79.899 Other long term (current) drug therapy; Z88.8 Allergy status to other drugs, medicaments and biological substances; Z68.43 Body mass index [BMI] 50.0-59.9, adult
CPT/HCPCS: 36415; 51702; 71046; 80053; 82272; 83735; 83880; 84484; 85027; 85610; 85730; 87636; 93005; 99285

== ENCOUNTER → 2023-09-06 | Outpatient (CLI) | payer MEDICARE ==
[2023-09-06 17:32] LABS: Anisocytosis (M) 3+; Basophils # (A) 0.03 X 10*3/uL (0.00-0.10); Basophils % (A) 0.7 %; Elliptocytes 2+; Eosinophils # (A) 0.07 X 10*3/uL (0.04-0.35); Eosinophils % (A) 1.6 %; HGB 12.9 g/dL (12.0-15.0); Lymphocytes # (A) 1.01 X 10*3/uL (0.90-5.00); Lymphocytes % (A) 22.5 %; MCH 25.2 pg (27.0-32.0); MCHC 30.7 g/dL (32.0-37.0); MCV 82.2 FL (80.0-97.0); Macrocytosis (M) 2+; Mean Platelet Volume 10.1 FL (9.5-12.2); Microcytosis (M) 2+; Monocytes # (A) 0.39 X 10*3/uL (0.20-1.00); Monocytes % (A) 8.7 %; NRBC Per 100 WBC 0 X 10*3/uL (0.00-0.01); Neutrophils # (A) 2.98 X 10*3/uL (1.80-7.70); Neutrophils % (A) 66.3 %; Platelet Count 208 X 10*3/uL (140-440); RBC 5.11 X 10*6/uL (4.10-5.20); Spherocytes 2+; WBC 4.49 X 10*3/uL (4.50-10.00)
== END | disposition home or self-care (01) ==
LOC: LABWHC1 10:18
PROVIDERS: ATTEND Family Medicine
DX: K92.2 Gastrointestinal hemorrhage, unspecified (principal)
CPT/HCPCS: 36415; 85025

== ENCOUNTER → 2023-09-11 | Outpatient (CLI) | payer MEDICARE ==
--- NOTE | 2023-09-11 13:49 | US ---
EXAMINATION TYPE: US venous doppler duplex LE DATE OF EXAM: 09/11/2023 10:49 AM COMPARISON: NONE CLINICAL INDICATION: Female, 77 years old with history of M79.604 PAIN IN RIGHT LEG; Swelling bilater al knee to ankle for years. Patient on blood thinners for A-Fib SIDE PERFORMED: Bilateral TECHNIQUE: The lower extremity deep venous system is examined utilizing real time linear array sonog berna with graded compression, doppler sonography and color-flow sonography. VESSELS IMAGED: Common Femoral Vein Deep Femoral Vein Greater Saphenous Vein * Femoral Vein Popliteal Vein Small Saphenous Vein * Proximal Calf Veins (* superficial vessels) Right Leg: Negative for DVT Left Leg: Negative for DVT IMPRESSION: 1. Bilateral lower extremity ultrasound negative for deep venous thrombosis.
== END | disposition home or self-care (01) ==
LOC: RADUSWWP 10:26
PROVIDERS: ATTEND Family Medicine
DX: M79.604 Pain in right leg (principal); M79.605 Pain in left leg; I48.91 Unspecified atrial fibrillation; M79.89 Other specified soft tissue disorders; R20.8 Other disturbances of skin sensation; Z79.01 Long term (current) use of anticoagulants
CPT/HCPCS: 93970

== ENCOUNTER → 2023-12-04 | Outpatient (CLI) | payer MEDICARE ==
[2023-12-04 19:21] LABS: HCT 35.6 % (37.2-46.3); HGB 10.7 g/dL (12.0-15.0); MCH 26.7 pg (27.0-32.0); MCHC 30.1 g/dL (32.0-37.0); MCV 88.8 FL (80.0-97.0); Mean Platelet Volume 10.6 FL (9.5-12.2); NRBC Per 100 WBC 0 X 10*3/uL (0.00-0.01); Platelet Count 236 X 10*3/uL (140-440); RBC 4.01 X 10*6/uL (4.10-5.20); RDW 13.4 % (11.5-14.5)
[2023-12-04 19:36] LABS: Reticulocyte % 2.04 % (0.10-1.80)
[2023-12-04 20:02] LABS: % Iron Saturation 5.5 (12.00-45.00); Ferritin 12.4 ng/mL (10.0-291.0)
== END | disposition home or self-care (01) ==
LOC: LABWHC1 12:49
PROVIDERS: ATTEND Internal Medicine Gastroenterology
DX: D64.9 Anemia, unspecified (principal)
CPT/HCPCS: 36415; 82607; 82728; 82746; 83540; 83550; 85027; 85045

== ENCOUNTER 2024-05-09 05:58 | Inpatient (IN) | payer MEDICARE ==
--- NOTE | 2024-05-09 06:47 | ED ---
General Adult HPI - General Source: patient, RN notes reviewed, old records reviewed Mode of arrival: EMS Limitations: no limitations <Darrell Cyr - Last Filed: 05/09/24 06:46> <Leigha Zimmer - Last Filed: 05/09/24 17:50> - General Chief complaint: Shortness of Breath Stated complaint: SOB Time Seen by Provider: 05/09/24 06:30 - History of Present Illness Initial comments: Quick note: Patient is an 78-year-old female who presents to the emergency department complaining of shortness of breath. Has been ongoing since Monday. States that last time this occurred, is due to internal bleeding. At that time she had dark stools. This was earlier this year. She is on blood thinners, Eliquis. She previously was on Coumadin. Has a history of atrial fibrillation, heart failure. Denies any orthopnea. Denies PND. Denies productive cough or fevers. Denies any chest pain. Denies nausea or vomiting or abdominal pain. No other symptoms other than shortness of breath. Thinks she may have slightly worsening lower extremity swelling. Presents for further evaluation. She is concerned she may have internal bleeding again. She denies any symptoms of internal bleeding other than shortness of breath. (Darrell Cyr) 78-year-old female presents to the emergency department for evaluation of shortness of breath. Patient states that she is short of breath even at rest. She reports that this has been going on since Monday. She does state that this has happened to her in the past and at that time she was anemic. Patient reports abdominal discomfort. She states that her stools are normal for her. She does have an colostomy. She denies chest pain. She does admit to lower extremity edema. (Leigha Zimmer) - Related Data Home Medications Medication Instructions Recorded Confirmed Ezetimibe [Zetia] 10 mg PO DAILY 07/30/23 05/09/24 Metoprolol Succinate (ER) [Toprol 50 mg PO BID 07/30/23 05/09/24 Xl] Dabigatran Etexilate Mesylate 150 mg PO BID 05/09/24 05/09/24 [Dabigatran Etexilate] Furosemide [Lasix] 20 mg PO DAILY 05/09/24 05/09/24 Allergies Allergy/AdvReac Type Severity Reaction Status Date / Time sertraline [From Zoloft] Allergy Unknown Verified 05/09/24 10:55 Review of Systems ROS Other: All systems not noted in ROS Statement are negative. <GerDarrell - Last Filed: 05/09/24 06:46> ROS Other: All systems not noted in ROS Statement are negative. <Ehsan Zimmersey - Last Filed: 05/09/24 17:50> ROS Statement: Those systems with pertinent positive or pertinent negative responses have been documented in the HPI. Past Medical History Past Medical History: Atrial Fibrillation, Heart Failure Additional Past Medical History / Comment(s): GI bleeding, Left heart valve needs to be replaced, critical heart murmur History of Any Multi-Drug Resistant Organisms: None Reported Past Surgical History: Orthopedic Surgery, Tonsillectomy Additional Past Surgical History / Comment(s): colostomy, hemorrhoidectomy Past Psychological History: No Psychological Hx Reported Past Alcohol Use History: None Reported Past Drug Use History: None Reported <GerDarrell - Last Filed: 05/09/24 06:46> General Exam Limitations: no limitations <Darrell Cyr - Last Filed: 05/09/24 06:46> Limitations: no limitations General appearance: alert, in no apparent distress Head exam: Present: atraumatic, normocephalic, normal inspection Eye exam: Present: normal appearance, PERRL, EOMI. Absent: scleral icterus, conjunctival injection, periorbital swelling ENT exam: Present: normal exam, mucous membranes moist Neck exam: Present: normal inspection. Absent: tenderness, meningismus, lymphadenopathy Respiratory exam: Present: normal lung sounds bilaterally. Absent: respiratory distress, wheezes, rales, rhonchi, stridor Cardiovascular Exam: Present: normal rhythm, other (Murmur). Absent: systolic murmur, diastolic murmur, rubs, gallop, clicks GI/Abdominal exam: Present: soft, tenderness. Absent: distended, guarding, rebound, rigid Extremities exam: Present: full ROM, normal capillary refill, pedal edema. Absent: tenderness, joint swelling, calf tenderness Neurological exam: Present: alert, oriented X3 <Leigha Zimmer - Last Filed: 05/09/24 17:50> - General Exam Comments Initial Comments: General: Appears in no acute distress. HEAD: Normal with no signs of head trauma. EYES: EOMI. ENT: Hearing grossly intact. RESPIRATORY: No respiratory distress. C/V: Regular rate and rhythm. ABD: Abdomen is nondistended. EXT: No obvious deformity. SKIN: No rashes or lesions observed on exposed skin. NEURO: Alert and oriented. (Darrell Cyr) Course Vital Signs 05/09/24 05/09/24 05/09/24 06:04 07:28 10:29 Temperature 97.7 F 97.9 F Pulse Rate 89 72 87 Respiratory 20 26 H 22 Rate Blood Pressure 183/89 149/78 114/69 O2 Sat by Pulse 93 L 94 L 94 L Oximetry 05/09/24 05/09/24 13:48 15:40 Temperature 98.1 F 98.2 F Pulse Rate 85 73 Respiratory 30 H 30 H Rate Blood Pressure 137/51 145/74 O2 Sat by Pulse 97 95 Oximetry Medical Decision Making <Darrell Cyr - Last Filed: 05/09/24 06:46> - Lab Data Result diagrams: 05/09/24 06:41 05/09/24 06:41 <Leigha Zimmer - Last Filed: 05/09/24 17:50> - Medical Decision Making Quick note portion of the exam completed by myself, Dr. Darrell Cyr MD. (Darrell Cyr) Was pt. sent in by a medical professional or institution (, PA, POLE [employer]ER, urgent care, hospital, or intermediate...) When possible be specific @ -No Did you speak to anyone other than the patient for history (EMS, parent, family, police, friend...)? What history was obtained from this source @ -No Did you review nursing and triage notes (agree or disagree)? Why? @ -I reviewed and agree with nursing and triage notes Were old charts reviewed (outside hosp., previous admission, EMS record, old EKG, old radiological studies, urgent care reports/EKG's, intermediate records)? Report findings @ -No old charts were reviewed Differential Diagnosis (chest pain, altered mental status, abdominal pain women, abdominal pain men, vaginal bleeding, weakness, fever, dyspnea, syncope, headache, dizziness, GI bleed, back pain, seizure, CVA, palpatations, mental health, musculoskeletal)? @ -n differential Dyspnea: Coronary syndrome, arrhythmia, tamponade, asthma, COPD, pulmonary embolism, pneumonia, pneumothorax, pulmonary effusion, anaphylaxis, diabetic ketoacidosis, flailed chest, pulmonary contusion, diaphragmatic rupture, anemia, neuromuscular, this is not meant to be an all-inclusive list. EKG interpreted by me (3pts min.). @ -EKG at 6:26 shows A-fib rate 72, QRS 101, QTQTc [id number] X-rays interpreted by me (1pt min.). @ -Chest x-ray shows pulmonary venous congestion. CT interpreted by me (1pt min.). @ -CT abdomen pelvis obtained reveals large hernia with no evidence for obstruction or strangulation U/S interpreted by me (1pt. min.). @ -None done What testing was considered but not performed or refused? (CT, X-rays, U/S, labs)? Why? @ -None What meds were considered but not given or refused? Why? @ -None Did you discuss the management of the patient with other professionals (professionals i.e. , PA, POLE [employer]ER, lab, RT, psych nurse, licensed master social worker, records tech, teacher, tank officer, hospice case manager)? Give summary @ -Case discussed with Dr. Kinney who is accepting of the admission Was smoking cessation discussed for >3mins.? @ -No Was critical care preformed (if so, how long)? @ -No Were there social determinants of health that impacted care today? How? (Homelessness, low income, unemployed, alcoholism, drug addiction, transportation, low edu. Level, literacy, decrease access to med. care, [facility], rehab)? @ -No Was there de-escalation of care discussed even if they declined (Discuss DNR or withdrawal of care, Hospice)? DNR status @ -No What co-morbidities impacted this encounter? (DM, HTN, Smoking, COPD, CAD, Cancer, CVA, ARF, Chemo, Hep., AIDS, mental health diagnosis, sleep apnea, morbid obesity)? @ -None Was patient admitted / discharged? Hospital course, mention meds given and route, prescriptions, significant lab abnormalities, going to OR and other pertinent info. @ -Admitted. Patient presented to the emergency department for evaluation of dyspnea. Laboratory studies obtained revealing mild anemia with a hemoglobin of 11.2.No significant leukocytosis, normal coagulation studies; CMP essentially unremarkable. Patient has troponin of 0.034 and BNP of 2480. Patient negative for COVID, influenza, RSV. Chest x-ray shows pulmonary venous congestion. Patient will be admitted for observation for CHF exacerbation. Patient was provided 20 mg IV Lasix. Case was discussed with Dr. Kinney who is accepting of the admission. Case discussed with Dr. Tyson. Undiagnosed new problem with uncertain prognosis? @ -No Drug Therapy requiring intensive monitoring for toxicity (Heparin, Nitro, Insulin, Cardizem)? @ -No Were any procedures done? @ -No Diagnosis/symptom? @ -CHF exacerbation Acute, or Chronic, or Acute on Chronic? @ -Acute Uncomplicated (without systemic symptoms) or Complicated (systemic symptoms)? @ -Uncomplicated Side effects of treatment? @ -No Exacerbation, Progression, or Severe Exacerbation? @ -No Poses a threat to life or bodily function? How? (Chest pain, USA, LA, pneumonia, PE, COPD, DKA, ARF, appy, cholecystitis, CVA, Diverticulitis, Homicidal, Suicidal, threat to staff... and all critical care pts) @ -No (Leigha Zimmer) - Lab Data Lab Results 05/09/24 05/09/24 05/09/24 Range/Units 06:41 06:41 06:41 WBC 6.9 (3.8-10.6) k/uL RBC 3.72 L (3.80-5.40) m/uL Hgb 11.3 L (11.4-16.0) gm/dL Hct 36.1 (34.0-46.0) % MCV 97.0 (80.0-100.0) fL MCH 30.5 (25.0-35.0) pg MCHC 31.5 (31.0-37.0) g/dL RDW 13.3 (11.5-15.5) % Plt Count 227 (150-450) k/uL MPV 7.0 Neutrophils % 84 % Lymphocytes % 8 % Monocytes % 5 % Eosinophils % 1 % Basophils % 0 % Neutrophils # 5.8 (1.3-7.7) k/uL Lymphocytes # 0.6 L (1.0-4.8) k/uL Monocytes # 0.4 (0-1.0) k/uL Eosinophils # 0.1 (0-0.7) k/uL Basophils # 0.0 (0-0.2) k/uL Hypochromasia Moderate PT (10.0-12.5) sec INR (<1.2) APTT (22.0-30.0) sec Sodium 136 L (137-145) mmol/L Potassium 4.7 (3.5-5.1) mmol/L Chloride 104 (98-107) mmol/L Carbon Dioxide 22 (22-30) mmol/L Anion Gap 10 mmol/L BUN 10 (7-17) mg/dL Creatinine 0.43 L (0.52-1.04) mg/dL Est GFR (CKD-EPI)AfAm >90 (>60 ml/min/1.73 sqM) Est GFR (CKD-EPI)NonAf >90 (>60 ml/min/1.73 sqM) Glucose 93 (74-99) mg/dL Calcium 9.1 (8.4-10.2) mg/dL Magnesium 1.9 (1.6-2.3) mg/dL Total Bilirubin 1.0 (0.2-1.3) mg/dL AST 29 (14-36) U/L ALT 15 (4-34) U/L Alkaline Phosphatase 67 (38-126) U/L Troponin I 0.034 (0.000-0.034) ng/mL NT-Pro-B Natriuret Pep 2480 pg/mL Total Protein 6.4 (6.3-8.2) g/dL Albumin 4.1 (3.5-5.0) g/dL Stool Occult Blood (Negative) Influenza Type A (PCR) (Not Detectd) Influenza Type B (PCR) (Not Detectd) RSV (PCR) (Not Detectd) SARS-CoV-2 (PCR) (Not Detectd) 05/09/24 05/09/24 05/09/24 Range/Units 07:02 07:08 14:47 WBC (3.8-10.6) k/uL RBC (3.80-5.40) m/uL Hgb (11.4-16.0) gm/dL Hct (34.0-46.0) % MCV (80.0-100.0) fL MCH (25.0-35.0) pg MCHC (31.0-37.0) g/dL RDW (11.5-15.5) % Plt Count (150-450) k/uL MPV Neutrophils % % Lymphocytes % % Monocytes % % Eosinophils % % Basophils % % Neutrophils # (1.3-7.7) k/uL Lymphocytes # (1.0-4.8) k/uL Monocytes # (0-1.0) k/uL Eosinophils # (0-0.7) k/uL Basophils # (0-0.2) k/uL Hypochromasia PT 11.7 (10.0-12.5) sec INR 1.1 (<1.2) APTT 29.4 (22.0-30.0) sec Sodium (137-145) mmol/L Potassium (3.5-5.1) mmol/L Chloride (98-107) mmol/L Carbon Dioxide (22-30) mmol/L Anion Gap mmol/L BUN (7-17) mg/dL Creatinine (0.52-1.04) mg/dL Est GFR (CKD-EPI)AfAm (>60 ml/min/1.73 sqM) Est GFR (CKD-EPI)NonAf (>60 ml/min/1.73 sqM) Glucose (74-99) mg/dL Calcium (8.4-10.2) mg/dL Magnesium (1.6-2.3) mg/dL Total Bilirubin (0.2-1.3) mg/dL AST (14-36) U/L ALT (4-34) U/L Alkaline Phosphatase (38-126) U/L Troponin I 0.054 H* (0.000-0.034) ng/mL NT-Pro-B Natriuret Pep pg/mL Total Protein (6.3-8.2) g/dL Albumin (3.5-5.0) g/dL Stool Occult Blood (Negative) Influenza Type A (PCR) Not Detected (Not Detectd) Influenza Type B (PCR) Not Detected (Not Detectd) RSV (PCR) Not Detected (Not Detectd) SARS-CoV-2 (PCR) Not Detected (Not Detectd) 05/09/24 Range/Units 14:47 WBC (3.8-10.6) k/uL RBC (3.80-5.40) m/uL Hgb (11.4-16.0) gm/dL Hct (34.0-46.0) % MCV (80.0-100.0) fL MCH (25.0-35.0) pg MCHC (31.0-37.0) g/dL RDW (11.5-15.5) % Plt Count (150-450) k/uL MPV Neutrophils % % Lymphocytes % % Monocytes % % Eosinophils % % Basophils % % Neutrophils # (1.3-7.7) k/uL Lymphocytes # (1.0-4.8) k/uL Monocytes # (0-1.0) k/uL Eosinophils # (0-0.7) k/uL Basophils # (0-0.2) k/uL Hypochromasia PT (10.0-12.5) sec INR (<1.2) APTT (22.0-30.0) sec Sodium (137-145) mmol/L Potassium (3.5-5.1) mmol/L Chloride (98-107) mmol/L Carbon Dioxide (22-30) mmol/L Anion Gap mmol/L BUN (7-17) mg/dL Creatinine (0.52-1.04) mg/dL Est GFR (CKD-EPI)AfAm (>60 ml/min/1.73 sqM) Est GFR (CKD-EPI)NonAf (>60 ml/min/1.73 sqM) Glucose (74-99) mg/dL Calcium (8.4-10.2) mg/dL Magnesium (1.6-2.3) mg/dL Total Bilirubin (0.2-1.3) mg/dL AST (14-36) U/L ALT (4-34) U/L Alkaline Phosphatase (38-126) U/L Troponin I (0.000-0.034) ng/mL NT-Pro-B Natriuret Pep pg/mL Total Protein (6.3-8.2) g/dL Albumin (3.5-5.0) g/dL Stool Occult Blood Positive H (Negative) Influenza Type A (PCR) (Not Detectd) Influenza Type B (PCR) (Not Detectd) RSV (PCR) (Not Detectd) SARS-CoV-2 (PCR) (Not Detectd) Disposition <Darrell Cyr - Last Filed: 05/09/24 06:46> Is patient prescribed a controlled substance at d/c from ED?: No <Leigha Zimmer - Last Filed: 05/09/24 17:50> Clinical Impression: CHF exacerbation Disposition: ADMITTED IP TO THIS HOSP
[2024-05-09 07:13] LABS: Basophils % (A) 0 %; Eosinophils # (A) 0.1 k/uL (0-0.7); Eosinophils % (A) 1 %; HCT 36.1 % (34.0-46.0); HGB 11.3 gm/dL (11.4-16.0); Hypochromasia Moderate; Lymphocytes # (A) 0.6 k/uL (1.0-4.8); Lymphocytes % (A) 8 %; MCH 30.5 pg (25.0-35.0); MCHC 31.5 g/dL (31.0-37.0); Monocytes # (A) 0.4 k/uL (0-1.0); Monocytes % (A) 5 %; Neutrophils # (A) 5.8 k/uL (1.3-7.7); Neutrophils % (A) 84 %; Platelet Count 227 k/uL (150-450); RBC 3.72 m/uL (3.80-5.40); RDW 13.3 % (11.5-15.5); WBC 6.9 k/uL (3.8-10.6)
[2024-05-09 07:32] LABS: INR 1.1 (<1.2); Partial Thromboplastin Time 29.4 sec (22.0-30.0); Prothrombin Time 11.7 sec (10.0-12.5)
[2024-05-09 07:32] LABS: ALT 15 U/L (4-34); African American GFR (CKD) >90 (>60 ml/min/1.73 sqM); Albumin 4.1 g/dL (3.5-5.0); Anion Gap 10 mmol/L; Blood Urea Nitrogen 10 mg/dL (7-17); Calcium 9.1 mg/dL (8.4-10.2); Carbon Dioxide 22 mmol/L (22-30); Chloride 104 mmol/L (98-107); Glucose 93 mg/dL (74-99); Non-African American GFR(CKD) >90 (>60 ml/min/1.73 sqM); Sodium 136 mmol/L (137-145); Total Protein 6.4 g/dL (6.3-8.2)
[2024-05-09 07:40] LABS: NT-Pro-B-Type Natriuretic Pept 2480 pg/mL
[2024-05-09 07:43] LABS: AST 29 U/L (14-36); Alkaline Phosphatase 67 U/L (38-126); Magnesium 1.9 mg/dL (1.6-2.3); Potassium 4.7 mmol/L (3.5-5.1)
--- NOTE | 2024-05-09 08:17 | XR ---
EXAMINATION TYPE: XR chest 1V DATE OF EXAM: 05/09/2024 CLINICAL HISTORY: Shortness of breath TECHNIQUE: Single frontal view of the chest is obtained. COMPARISON: 07/30/2023 FINDINGS: There is no focal air space opacity or pneumothorax seen. Cardiomegaly pulmonary venous co ngestion however no evidence for overt failure. Small effusion left lung base. The osseous structures are intact. IMPRESSION: Cardiomegaly pulmonary venous congestion however no evidence for overt failure. Small ef fusion left lung base. [facility], , 05/09/2024 8:15 AM
--- NOTE | 2024-05-09 10:34 | CT ---
EXAMINATION TYPE: CT abdomen pelvis w con DATE OF EXAM: 05/09/2024 COMPARISON: None CLINICAL INDICATION: Female, 78 years old with history of abd pain; PHH, Abdominal pain TECHNIQUE: Performed without Oral Contrast and with IV Contrast, patient injected with 100 ml mL of Isovue 370. CT DLP: 1456.[address] CTDI: mGy Automated exposure control for dose reduction was used. FINDINGS: There is scattered groundglass opacity throughout the lung lopez of the lower lung zones with small bilateral pleural effusions. The findings suggest pulmonary edema possible CHF. The gallbladder is normal without distention, wall thickening, pericholecystic fluid or gallstones. T here is no biliary ductal dilatation. There is no focal mass or organomegaly involving the liver, pancreas, spleen or adrenal glands. There is no solid renal mass or hydronephrosis and there is homogeneous contrast enhancement of the r enal parenchyma. The caliber the abdominal aorta is normal is no retroperitoneal adenopathy or hemorr ellie. There is a large left anterolateral hernia containing multiple loops of small and large bowel but no evidence of strangulation or obstruction. No inflammatory changes are seen within the mesentery. Ther e is no free intraperitoneal air or fluid. There is a septated 5 cm well-circumscribed cystic mass in the region the right adnexa. Neoplasm in t his age group cannot be excluded. The osseous structures and soft tissues are intact. IMPRESSION: 1. Large anterolateral left abdominal wall hernia containing multiple loops of bowel but no evidence of bowel obstruction, strangulation or inflammation. 2. Septated 5 cm right adnexal cystic mass. Appears relatively benign but neoplasm cannot be excluded . Further workup may be warranted. [facility], , 05/09/2024 10:31 AM
[2024-05-09] MEDS: MORPHINE SULFATE 2 MG/ML SYRINGE IVP STA ×2 (10:42→15:54)
[2024-05-09] MEDS ORDERED: NALOXONE 0.4 MG/ML 1 ML VIAL IV PRN (12:46)
[2024-05-09] MEDS: FUROSEMIDE 10 MG/ML 2 ML VIAL IV STA (15:25)
[2024-05-09] MEDS: LIDOCAINE 4% PATCH TOPICAL ONE (16:00)
[2024-05-09 17:50] LABS: Appearance,Urine Clear (Clear); Color,Urine Colorless
[2024-05-09 17:51] LABS: Bilirubin,Urine Negative (Negative); Blood,Urine Negative (Negative); Glucose,Urine (UA) Negative (Negative); Ketones,Urine Trace (Negative); Leukocyte Esterase,Urine Negative (Negative); Nitrite,Urine Negative (Negative); Protein,Urine Negative (Negative); Specific Gravity,Urine 1.027 (1.001-1.035); Urobilinogen,Urine <2.0 mg/dL (<2.0)
[2024-05-10] MEDS ORDERED: HEPARIN SODIUM,PORCINE (1 ML) 2,500 UNIT in SODIUM CHLORIDE 0.9% 250 ML IRRIGATION PRN (07:00)
[2024-05-10] MEDS ORDERED: HEPARIN SODIUM,PORCINE 10,000 UNIT in SODIUM CHLORIDE 0.9% 1,000 ML IRRIGATION PRN (07:00)
[2024-05-10] MEDS: EZETIMIBE 10 MG TAB PO SCH (08:43)
[2024-05-10] MEDS: DABIGATRAN 150 MG CAP PO SCH (08:44)
[2024-05-10] MEDS: METOPROLOL SUCCINATE (ER) 50 MG TAB.ER.24H PO SCH (08:44)
[2024-05-10] MEDS: FUROSEMIDE 10 MG/ML 2 ML VIAL IV SCH (08:45)
--- NOTE | 2024-05-10 10:12 | P.CONS ---
History of Present Illness - Reason for Consult Consult date: 05/10/24 Positive occult stool, ostomy Requesting physician: Leigha Zimmer - Chief Complaint Shortness of breath - History of Present Illness This is a 78-year-old female with history of morbid obesity, diverticulitis status post colostomy, atrial fibrillation, and heart failure who presented to the emergency department with shortness of breath and lower extremity swelling. She states she was concerned maybe she had a GI bleed as she has a history of 1 in July of this past year and was seen at a outside facility, she states she did not undergo any scopes. She has colostomy bag which she states that she has had since 2010. She denies any blood or black stool out of her ostomy. States she was having "abdominal tremors" which has since resolved. She follows with cardiology states that she needs a new heart valve. Hemoglobin was 11.3 on admission they did a stool for occult blood which was positive. Last colonoscopy was around 2010. She had a CT of the abdomen pelvis with contrast that reports a large anterolateral left abdominal wall hernia containing multi ple loops of bowel but no evidence of bowel obstruction, strangulation or inflammation. Septated 5 cm right adnexal cystic mass appears relatively benign but neoplasm cannot be excluded. Further workup may be warranted. She states she has followed with Dr. Figueroa in the past for her hernia and anders tino was not recommended at that time. Review of Systems REVIEW OF SYSTEMS: CARDIOPULMONARY: No chest pain, shortness of breath, lower extremity swelling. Gastrointestinal: No abdominal pain. No nausea or vomiting. No hematemesis, coffee-ground emesis. No rectal bleeding, or melena. Has ostomy GENITOURINARY: No dysuria or hematuria. MUSCULOSKELETAL: Reports normal range of motion., Joint pain. SKIN: No rashes. No jaundice. ENDOCRINE: No chills, fevers. No excessive weight gain or loss. No polydipsia or polyuria. PSYCHIATRIC: Unremarkable. NEUROLOGY: No change in mental status. Denies dizziness, headache. ENT: Vision unremarkable. CONSTITUTIONAL: No recent weight loss. No fever, chills, night sweats. Past Medical History Past Medical History: Atrial Fibrillation, Heart Failure Additional Past Medical History / Comment(s): GI bleeding, Left heart valve needs to be replaced, critical heart murmur History of Any Multi-Drug Resistant Organisms: None Reported Past Surgical History: Orthopedic Surgery, Tonsillectomy Additional Past Surgical History / Comment(s): colostomy, hemorrhoidectomy Past Psychological History: No Psychological Hx Reported Past Alcohol Use History: None Reported Past Drug Use History: None Reported Medications and Allergies Home Medications Medication Instructions Recorded Confirmed Type Ezetimibe [Zetia] 10 mg PO DAILY 07/30/23 05/09/24 History Metoprolol Succinate (ER) [Toprol 50 mg PO BID 07/30/23 05/09/24 History Xl] Dabigatran Etexilate Mesylate 150 mg PO BID 05/09/24 05/09/24 History [Dabigatran Etexilate] Furosemide [Lasix] 20 mg PO DAILY 05/09/24 05/09/24 History Allergies Allergy/AdvReac Type Severity Reaction Status Date / Time sertraline [From Zoloft] Allergy Unknown Verified 05/09/24 10:55 Physical Exam Vitals: Vital Signs Temp Pulse Resp BP Pulse Ox 05/10/24 07:37 75 18 148/62 95 05/10/24 06:42 62 16 97 05/10/24 04:11 53 L 16 131/69 95 05/10/24 00:38 79 16 165/68 95 05/09/24 20:05 64 18 126/41 93 L 05/09/24 15:40 98.2 F 73 30 H 145/74 95 05/09/24 13:48 98.1 F 85 30 H 137/51 97 05/09/24 10:29 87 22 114/69 94 L General appearance: The patient is alert, oriented, appears in no acute distress. Morbidly obese. HET: Head is normocephalic and atraumatic. Conjunctiva pink. Sclera anicteric. Neck: Supple without lymphadenopathy. Abdomen: Soft, nontender, left mid abdomen with ostomy bag, large hernia noted, nondistended. Morbidly obese. Extremities: Normal skin color and turgor. Lower extremity edema. Skin: No rashes, no jaundice Neurological: No focal deficits. Alert and oriented. Results CBC & Chem 7: 05/09/24 06:41 05/09/24 06:41 Labs: Abnormal Lab Results - Last 24 Hours (Table) 05/09/24 05/09/24 05/09/24 Range/Units 14:47 14:47 17:12 Troponin I 0.054 H* (0.000-0.034) ng/mL Urine Ketones Trace H (Negative) Stool Occult Blood Positive H (Negative) Comments: CT of the abdomen pelvis with contrast that reports a large anterolateral left abdominal wall hernia containing multiple loops of bowel but no evidence of bowel obstruction, strangulation or inflammation. Septated 5 cm right adnexal cystic mass appears relatively benign but neoplasm cannot be excluded. Further workup may be warranted. Assessment and Plan (1) Fecal occult blood test positive Narrative/Plan: 78-year-old female with history of heart failure, atrial fibrillation, diverticulitis status post ostomy in 2010 presented for shortness of breath and lower extremity swelling. Patient had a hemoglobin of 11.3, the emergency department collected stool sample which was positive for occult blood. Patient is not having any signs of GI bleed, there is no blood in her stool or black sto ol. No abdominal pain, nausea or vomiting. Presenting for shortness of breath with a history of heart disease needing cardiac valve. No plans on endoscopic evaluation. Continue to monitor for GI bleed. Current Visit: Yes Status: Acute Code(s): R19.5 - OTHER FECAL ABNORMALITIES SNOMED Code(s): 96206376 (2) SOB (shortness of breath) Current Visit: Yes Status: Acute Code(s): R06.02 - SHORTNESS OF BREATH SNOMED Code(s): 773813830 Plan: 1. Continue symptomatic and supportive care 2. Heart healthy diet 3. Daily CBC, transfuse for hemoglobin less than 7 4. Monitor for blood in stool or black stool 5. No plans for endoscopic evaluation 6. Continue with recommendations from cardiology 7. Rest of medical management per primary medical team Thank you for allowing us to participate in the care of the patient, the GI service will sign off, gastroenterology will not be available at the hospital this weekend and through next week. If further evaluation by gastroenterology is required the patient will need transfer as per the primary team's discretion. Dr. Nick Cardoza I agree with the dictator's note, documented as a scribe by Charlotte Nguyen.
[2024-05-10] MEDS ORDERED: ALPRAZolam 0.5 MG TAB PO PRN (11:48)
[2024-05-10] MEDS ORDERED: NITROGLYCERIN SL TABS 0.4 MG TAB SUBLINGUAL PRN (11:48)
[2024-05-10] MEDS ORDERED: ALPRAZolam 0.25 MG TAB PO PRN (11:48)
[2024-05-10] MEDS: ATORVASTATIN 80 MG TAB PO STA (12:20)
[2024-05-10] MEDS: ASPIRIN 325 MG TAB PO STA (12:21)
--- NOTE | 2024-05-10 12:28 | P.CRDCN ---
History of Present Illness Consult date: 05/10/24 Reason for Consult (text): Dyspnea History of present illness: This is an 86-year-old female patient of Dr. Patterson with past medical history of neuropathy, chronic pain, arthritis, chronic atrial fibrillation, hypertension, obstructive sleep apnea noncompliant with CPAP, chronic lower extremity edema, morbid obesity, status post colectomy, moderate aortic stenosis. We have been asked to evaluate the patient for dyspnea. Patient states that yesterday she developed tremors that lasted for about 12 hours yesterday, onset while she was napping. She is also complained of shortness of breath starting on Monday. By her symptoms were much worse and she could hardly walk a short distance due to dyspnea. She states her breathing was rapid and she felt like she was going to pass out. She also had a little bit of nausea. She denies any chest pain, no palpitations. She states he missed 1 dose of her Lasix. Blood pressure 148/62, heart rate 75, pulse ox 95% on 2 L. Patient is seen today in the emergency center waiting for bed on the cardiac stepdown unit. Patient is status post 1 dose of IV Lasix 20 mg, lidocaine patch and IV morphine. Patient has been seen by GI due to positive fecal occult blood test and no plan for endoscopy at this time. Dr. Patterson discussed with patient that he would recommend heart catheterization to further evaluate coronary arteries which will need to be done if she has further valve workup done for replacement or repair. Patient is agreeable to move forward with this today. -EKG: Atrial fibrillation with ventricular rate of 72 bpm -Chest x-ray: Cardiomegaly, pulmonary venous congestion however no evidence of overt failure. Small effusion on the left lung base. -CT of the abdomen pelvis reveals large anterior lateral left abdominal wall hernia containing multiple loops of bowel but no evidence of bowel obstruction, strangulation or inflammation. Adnexal cystic mass. -Laboratory studies: WBC 6.9, hemoglobin 1.3. Sodium 136, potassium 4.7, BUN 10 creatinine 0.43. Troponin 0.034 and 0.054. proBNP 2480. Liver function are normal. Magnesium 1.9. Stool for occult blood positive. Influenza A, influenza B, RSV, COVID-19 not detected. -Home cardiac medications: Pradaxa 150 mg twice daily, Zetia 10 mg daily, Lasix 20 mg daily, metoprolol succinate 50 mg twice daily -Echocardiogram performed in the office on 02/08/2023 reveals EF 55 to 60%. Moderate concentric left ventricular hypertrophy. Severe aortic stenosis, severe mitral regurgitation, moderate tricuspid regurgitation. PASP 38 mmHg. Review Of Systems: At the time of my exam: CONSTITUTIONAL: Denies fever or chills. HEENT: Denies blurred vision, vision changes, or eye pain. Denies hemoptysis CARDIOVASCULAR: Denies chest pain. Denies orthopnea. Denies PND. Denies palpitations RESPIRATORY: Denies shortness of breath. GASTROINTESTINAL: Denies abdominal pain. Denies nausea or vomiting. HEMATOLOGIC: Denies bleeding disorders. GENITOURINARY: Denies any blood in urine. SKIN: Denies puritis. Denies rash. Physical examination: Gen: This is an 78-year-old female in no acute distress VS: reviewed HEENT: Head is atraumatic, normocephalic. Pupils equal, round. Sclerae is anicteric. NECK: Supple. No JVD. LUNGS: Diminished breath sounds. No wheezes or rhonchi. No intercostal retractions. HEART: Irregular rate and rhythm. 3/6 systolic murmur. ABDOMEN: Soft No tenderness. EXTREMITIES: Bilateral lower extremity edema. No calf tenderness. NEUROLOGICAL: Patient is awake, alert and oriented x3. Assessment: Dyspnea secondary to acute on chronic diastolic heart failure Abnormal troponin, rule out acute coronary syndrome Chronic atrial fibrillation on Pradaxa Valvular heart disease with severe aortic stenosis, severe mitral regurgitation, moderate tricuspid regurgitation Obstructive sleep apnea noncompliant with CPAP Stool for occult blood positive, GI plans no endoscopy Morbid obesity with BMI of 48 Hypertension Chronic lower extremity edema Plan: Resume patient's home cardiac medications Continue IV Lasix 20 mg daily Monitor HEATHER, daily weights, electrolytes and renal function Schedule patient for left heart cath today with Dr. Patterson N.p.o. after lunch Obtain 2-D echocardiogram and Doppler study to assess cardiac structure and function Further recommendations to follow based upon clinical course Thank you kindly for this consultation. Nurse practitioner note has been reviewed, I agree with documented findings and plan of care. Patient was seen and examined. Past Medical History Past Medical History: Atrial Fibrillation, Heart Failure Additional Past Medical History / Comment(s): GI bleeding, Left heart valve needs to be replaced, critical heart murmur History of Any Multi-Drug Resistant Organisms: None Reported Past Surgical History: Orthopedic Surgery, Tonsillectomy Additional Past Surgical History / Comment(s): colostomy, hemorrhoidectomy Past Psychological History: No Psychological Hx Reported Past Alcohol Use History: None Reported Past Drug Use History: None Reported Medications and Allergies Home Medications Medication Instructions Recorded Confirmed Type Ezetimibe [Zetia] 10 mg PO DAILY 07/30/23 05/09/24 History Metoprolol Succinate (ER) [Toprol 50 mg PO BID 07/30/23 05/09/24 History Xl] Dabigatran Etexilate Mesylate 150 mg PO BID 05/09/24 05/09/24 History [Dabigatran Etexilate] Furosemide [Lasix] 20 mg PO DAILY 05/09/24 05/09/24 History Allergies Allergy/AdvReac Type Severity Reaction Status Date / Time sertraline [From Zoloft] Allergy Unknown Verified 05/09/24 10:55 Physical Exam Vitals: Vital Signs Temp Pulse Resp BP Pulse Ox 05/10/24 07:37 75 18 148/62 95 05/10/24 06:42 62 16 97 05/10/24 04:11 53 L 16 131/69 95 05/10/24 00:38 79 16 165/68 95 05/09/24 20:05 64 18 126/41 93 L 05/09/24 15:40 98.2 F 73 30 H 145/74 95 05/09/24 13:48 98.1 F 85 30 H 137/51 97 05/09/24 10:29 87 22 114/69 94 L Results 05/09/24 06:41 05/09/24 06:41 Cardiac Enzymes 05/09/24 Range/Units 14:47 Troponin I 0.054 H* (0.000-0.034) ng/mL Current Medications Generic Name Dose Route Start Last Admin Trade Name Freq PRN Reason Stop Dose Admin Acetaminophen 650 mg 05/09/24 12:46 Acetaminophen Tab 325 Mg Tab PO Q6HR PRN Mild Pain or Fever > 100.5 Dabigatran 150 mg 05/10/24 09:00 Dabigatran 150 Mg Cap PO BID [facility] Protocol Ezetimibe 10 mg 05/10/24 09:00 Ezetimibe 10 Mg Tab PO DAILY [facility] Furosemide 20 mg 05/10/24 09:00 Furosemide 10 Mg/Ml 2 Ml Vial IV DAILY SUNDAY Metoprolol Succinate 50 mg 05/10/24 09:00 Metoprolol Succinate (Er) 50 Mg Tab.Er.24h PO BID SUNDAY Naloxone HCl 0.2 mg 05/09/24 12:46 Naloxone 0.4 Mg/Ml 1 Ml Vial IV Q2M PRN Opioid Reversal 05/09/24 06:41 05/09/24 06:41
--- NOTE | 2024-05-10 21:40 | P.HPIM ---
History of Present Illness H&P Date: 05/10/24 Jonny Garcia is an 78 year-old female with PMH chronic atrial fibrillation, hypertension, obstructive sleep apnea noncompliant with CPAP, chronic lower extremity edema, morbid obesity, status post colectomy who presented to the ED with shortness of breath. She complains that over the last 3-4 days she is feeling winded and like she is going to pass out. She also had a little bit of nausea. She denies any chest pain, no palpitations. She states he missed 1 dose of her Lasix. Blood pressure 148/62, heart rate 75, pulse ox 95% on 2 L. Review of Systems All systems: negative Constitutional: Denies chills, Denies fever Eyes: denies blurred vision, denies pain Ears, nose, mouth and throat: Denies headache, Denies sore throat Cardiovascular: Denies chest pain, Denies shortness of breath Respiratory: Denies cough Gastrointestinal: Denies abdominal pain, Denies diarrhea, Denies nausea, Denies vomiting Genitourinary: Denies dysuria, Denies hematuria Musculoskeletal: Denies myalgias Integumentary: Denies pruritus, Denies rash Neurological: Denies numbness, Denies weakness Psychiatric: Denies anxiety, Denies depression Endocrine: Denies fatigue, Denies weight change Past Medical History Past Medical History: Atrial Fibrillation, Heart Failure, GI Bleed Additional Past Medical History / Comment(s): Left heart valve needs to be replaced, critical heart murmur History of Any Multi-Drug Resistant Organisms: None Reported Past Surgical History: Orthopedic Surgery, Tonsillectomy Additional Past Surgical History / Comment(s): colostomy, hemorrhoidectomy, broken right ankle repair Past Anesthesia/Blood Transfusion Reactions: No Reported Reaction Past Psychological History: No Psychological Hx Reported Smoking Status: Never smoker Past Alcohol Use History: None Reported Past Drug Use History: None Reported - Past Family History Mother Family Medical History: Cancer, Congestive Heart Failure (CHF), CVA/TIA Additional Family Medical History / Comment(s): pancreatic Medications and Allergies Home Medications Medication Instructions Recorded Confirmed Type Ezetimibe [Zetia] 10 mg PO DAILY 07/30/23 05/09/24 History Metoprolol Succinate (ER) [Toprol 50 mg PO BID 07/30/23 05/09/24 History Xl] Dabigatran Etexilate Mesylate 150 mg PO BID 05/09/24 05/09/24 History [Dabigatran Etexilate] Furosemide [Lasix] 20 mg PO DAILY 05/09/24 05/09/24 History Allergies Allergy/AdvReac Type Severity Reaction Status Date / Time sertraline [From Zoloft] Allergy Unknown Verified 05/09/24 10:55 Physical Exam Vitals: Vital Signs Temp Pulse Pulse Resp BP BP Pulse Ox 05/10/24 16:07 98.1 F 58 L 16 127/60 05/10/24 15:02 62 18 144/58 96 05/10/24 12:22 75 18 141/58 96 05/10/24 07:37 75 18 148/62 95 05/10/24 06:42 62 16 97 05/10/24 04:11 53 L 16 131/69 95 05/10/24 00:38 79 16 165/68 95 Intake and Output 05/10/24 05/10/24 05/10/24 06:59 14:59 22:59 Intake Total 118 Balance 118 Intake: Oral 118 Other: Voiding Method External Catheter # Voids 1 Weight 108.862 kg Gen well developed well nourished NAD NC/AT, mmm CV Irregular, no murmur Lungs CTAB Abd nontender non distended Skin warm and dry Neuro AAOx3 no focal defect Results CBC & Chem 7: 05/09/24 06:41 05/09/24 06:41 Thrombosis Risk Factor Assmnt - Choose All That Apply Any of the Below Risk Factors Present?: Yes Each Factor Represents 1 point: Heart failure (<1month), Obesity (BMI >25), Swollen legs (current) Other Risk Factors: Yes Each Risk Factor Represents 3 Points: Age 75 years or older Thrombosis Risk Factor Assessment Total Risk Factor Score: 6 Thrombosis Risk Factor Assessment Level: High Risk Assessment and Plan Plan: Admit and consult cardiology. Resume home pradaxa, lipitor, zetia. Continue remainder of medical regimen
[2024-05-11] MEDS: PSYLLIUM HUSK 100% 6 GM PACKET PO PRN (00:56)
--- NOTE | 2024-05-11 09:46 | CA ---
Transthoracic Echo Report Name: Jonny Garcia Age: 78 Gender: F : 1945 Exam Date: 05/10/2024 15:02 Exam Location: [place] [facility] Ht (in): 59 Wt (lb): 240 Ordering Physician: Emilee Sanchez Attending/Referring Phys: [id number], Laura Physical Therapy Resident Ghislaine Keane RDCS Procedure CPT: Indications: LVF Cardiac Hx: Technical Quality: Good Contrast 1: Total Dose (mL): Contrast 2: Total Dose (mL): MEASUREMENTS (Male / Female) Normal Values 2D ECHO LV Diastolic Diameter PLAX 6.0 cm 4.2 - 5.9 / 3.9 - 5.3 cm LV Systolic Diameter PLAX 4.0 cm IVS Diastolic Thickness 0.9 cm 0.6 - 1.0 / 0.6 - 0.9 cm LVPW Diastolic Thickness 1.1 cm 0.6 - 1.0 / 0.6 - 0.9 cm LV Relative Wall Thickness 0.3 LVOT Diameter 2.2 cm LV Diastolic Volume MOD BP 129.2 cm??? 67 - 155 / 56 - 104 cm??? LV Systolic Volume MOD BP 49.8 cm??? 22 - 58 / 19 - 49 cm??? LV Ejection Fraction MOD BP 61.4 % >= 55 % LV Cardiac Index MOD BP 2198.7 cm???/min???m??? LV Diastolic Volume MOD 4C 131.0 cm??? LV Systolic Volume MOD 4C 51.2 cm??? LV Ejection Fraction MOD 4C 60.9 % LV Cardiac Index MOD 4C 2208.9 cm???/min???m??? LV Diastolic Length 4C 7.8 cm LV Systolic Length 4C 6.4 cm LV Diastolic Volume MOD 2C 125.2 cm??? LV Systolic Volume MOD 2C 48.0 cm??? LV Ejection Fraction MOD 2C 61.7 % LV Cardiac Index MOD 2C 2138.7 cm???/min???m??? LV Diastolic Length 2C 7.6 cm LV Systolic Length 2C 6.3 cm LA Volume 247.4 cm??? 18 - 58 / 22 - 52 cm??? LA Volume Index 112.3 cm???/m??? 16 - 28 cm???/m??? Ascending Aorta Diameter 3.2 cm DOPPLER AV Peak Velocity 447.7 cm/s AV Peak Gradient 80.2 mmHg AV Mean Velocity 331.2 cm/s AV Mean Gradient 48.4 mmHg AV Velocity Time Integral 114.5 cm LVOT Peak Velocity 123.0 cm/s LVOT Peak Gradient 6.0 mmHg LVOT Velocity Time Integral 29.7 cm LVOT Stroke Volume 112.1 cm??? LVOT Stroke Volume Index 56.3 ml/m??? LVOT Cardiac Index 3105.4 cm???/min???m??? AV Area Cont Eq vti 1.0 cm??? AV Area Cont Eq pk 1.0 cm??? MV Peak Velocity 154.4 cm/s MV Peak Gradient 9.5 mmHg MV Mean Velocity 72.4 cm/s MV Mean Gradient 2.7 mmHg MV Velocity Time Integral 30.9 cm MR Peak Velocity 637.3 cm/s MR Peak Gradient 162.5 mmHg MR Flow Rate PISA 136.8 cm???/s MR ERO PISA 0.2 cm??? MR Regurgitant Volume PISA 45.9 cm??? TR Peak Velocity 285.2 cm/s TR Peak Gradient 32.5 mmHg Right Atrial Pressure 10.0 mmHg Pulmonary Artery Systolic Pressu 42.5 mmHg Right Ventricular Systolic Press 42.5 mmHg PV Peak Velocity 80.1 cm/s PV Peak Gradient 2.6 mmHg FINDINGS Left Ventricle Left ventricular ejection fraction is estimated at 55-60 %. Mildly increased posterior wall thickness. Moderately increased left ventricular diastolic diameter. Moderately increased left ventricular diastolic volume. No obvious regional wall motion abnormalities. Right Ventricle Normal right ventricular size and function. Mild pulmonary hypertension. Right Atrium Severe right atrial dilatation. Left Atrium Severely increased left atrial volume. Severely increased left atrial area. Mitral Valve Structurally normal mitral valve. Mild mitral stenosis. Moderate mitral regurgitation. Aortic Valve Trileaflet aortic valve. Severe aortic stenosis. Mean gradient 50mmHg. No aortic regurgitation. Tricuspid Valve Structurally normal tricuspid valve. No tricuspid stenosis. Mild tricuspid regurgitation. Pulmonic Valve Pulmonic valve not well visualized. No pulmonic stenosis. Trace pulmonic regurgitation. Pericardium No pericardial effusion. Aorta Normal size aortic root and proximal ascending aorta. CONCLUSIONS LVEF 55% Moderate concentric LVH No obvious regional wall motion abnormality Severe biatrial dilatation Moderate MR, Severe calcific aortic stenosis, mean gradient 50 mmHg. VTI ratio 0.26 Previewed by: Dr Last Palumbo (Electronically Signed) Final Date: 11 May 2024 09:45
--- NOTE | 2024-05-11 16:53 | P.PN ---
Subjective Progress Note Date: 05/11/24 History of present illness: This is an 86-year-old female patient of Dr. Patterson with past medical history of neuropathy, chronic pain, arthritis, chronic atrial fibrillation, hy pertension, obstructive sleep apnea noncompliant with CPAP, chronic lower extremity edema, morbid obesity, status post colectomy, moderate aortic stenosis. We have been asked to evaluate the patient for dyspnea. Patient states that yesterday she developed tremors that lasted for about 12 hours yes terday, onset while she was napping. She is also complained of shortness of breath starting on Monday. By her symptoms were much worse and she could hardly walk a short distance due to dyspnea. She states her breathing was rapid and she felt like she was going to pass out. She also had a little bit of nausea. She denies any chest pain, no palpitations. She states he missed 1 dose of her Lasix. Blood pressure 148/62, heart rate 75, pulse ox 95% on 2 L. Patient is seen today in the emergency center waiting for bed on the cardiac stepdown unit. Patient is status post 1 dose of IV Lasix 20 mg, lidocaine patch and IV morphine. Patient has been seen by GI due to positive fecal occult blood test and no plan for endoscopy at this time. Dr. Patterson discussed with patient that he would recommend heart catheterization to further evaluate coronary arteries which will need to be done if she has further valve workup done for replacement or repair. Patient is agreeable to move forward with this today. -EKG: Atrial fibrillation with ventricular rate of 72 bpm -Chest x-ray: Cardiomegaly, pulmonary venous congestion however no evidence of overt failure. Small effusion on the left lung base. -CT of the abdomen pelvis reveals large anterior lateral left abdominal wall hernia containing multiple loops of bowel but no evidence of bowel obstruction, strangulation or inflammation. Adnexal cystic mass. -Laboratory studies: WBC 6.9, hemoglobin 1.3. Sodium 136, potassium 4.7, BUN 10 creatinine 0.43. Troponin 0.034 and 0.054. proBNP 2480. Liver function are normal. Magnesium 1.9. Stool for occult blood positive. Influenza A, influenza B, RSV, COVID-19 not detected. -Home cardiac medications: Pradaxa 150 mg twice daily, Zetia 10 mg daily, Lasix 20 mg daily, metoprolol succinate 50 mg twice daily -Echocardiogram performed in the office on 02/08/2023 reveals EF 55 to 60%. Moderate concentric left ventricular hypertrophy. Severe aortic stenosis, severe mitral regurgitation, moderate tricuspid regurgitation. PASP 38 mmHg. Progress note 05/11 Patient is seen and examined at bedside this a.m. Her echocardiogram showed severe aortic stenosis mean gradient of 50 mmHg. Physical examination: Gen: This is an 78-year-old female in no acute distress VS: reviewed HEENT: Head is atraumatic, normocephalic. Pupils equal, round. Sclerae is anicteric. NECK: Supple. No JVD. LUNGS: Diminished breath sounds. No wheezes or rhonchi. No intercostal retractions. HEART: Irregular rate and rhythm. 3/6 systolic murmur. ABDOMEN: Soft No tenderness. EXTREMITIES: Bilateral lower extremity edema. No calf tenderness. NEUROLOGICAL: Patient is awake, alert and oriented x3. Assessment: Severe symptomatic aortic stenosis acute HFpEF exacerbation Abnormal troponin, rule out acute coronary syndrome Chronic atrial fibrillation on Pradaxa, rate controlled. Valvular heart disease with severe aortic stenosis, severe mitral regurgitation, moderate tricuspid regurgitation Obstructive sleep apnea noncompliant with CPAP Stool for occult blood positive, GI plans no endoscopy Morbid obesity with BMI of 48 Hypertension Chronic lower extremity edema Plan: d/c praxada from tomorrow AM Continue p.o. diuretic and metoprolol. Do not increase the dose of metoprolol and diuretic further. Monitor blood pressure and heart rate. If blood pressure is high, consider adding low-dose losartan. Patient is scheduled for a left heart catheterization Monitor HEATHER, daily weights, electrolytes and renal function Schedule patient for left heart cath on Monday with Dr. Patterson Objective - Vital Signs Vital signs: Vital Signs Temp 98.3 F 05/11/24 16:00 Pulse 66 05/11/24 16:00 Resp 16 05/11/24 16:00 BP 128/53 05/11/24 16:00 Pulse Ox 96 05/11/24 16:00 FiO2 Intake & Output 05/10/24 05/11/24 05/11/24 18:59 06:59 18:59 Intake Total 118 500 Output Total 600 Balance 118 -100 Weight 108.862 kg 107.3 kg Intake: IV 20 Invasive Line 1 20 Oral 118 480 Output: Urine 600 Other: Voiding Method External Catheter Toilet Toilet # Voids 4 2 - Labs CBC & Chem 7: 05/09/24 06:41 05/09/24 06:41
[2024-05-11] MEDS ORDERED: FUROSEMIDE 40 MG TAB PO SCH (17:00)
[2024-05-11] MEDS: FUROSEMIDE 20 MG TAB PO SCH (17:33)
[2024-05-11] MEDS: LOSARTAN 25 MG TAB PO SCH (17:33)
[2024-05-11] MEDS: ASPIRIN 81 MG PO SCH (17:33)
[2024-05-11] MEDS: ATORVASTATIN 40 MG TAB PO SCH (17:33)
[2024-05-11] MEDS: DAPAGLIFLOZIN PROPANEDIOL 10 MG TABLET PO SCH (17:33)
--- NOTE | 2024-05-11 17:41 | P.PN ---
Subjective Jonny Garcia is an 78 year-old female with PMH chronic atrial fibrillation, hypertension, obstructive sleep apnea noncompliant with CPAP, chronic lower extremity edema, morbid obesity, status post colectomy who presented to the ED with shortness of breath. She complains that over the last 3-4 days she is feeling winded and like she is going to pass out. She also had a little bit of nausea. She denies any chest pain, no palpitations. She states he missed 1 dose of her Lasix. Blood pressure 148/62, heart rate 75, pulse ox 95% on 2 L. 05/11 Patient feels comfortable, who presents with shortness of breath, he is not dyspneic anymore No chest pain There was some blood in the stomach, patient states he has been seen by , Which is not much concerned about it His hemoglobin is stable Hemodynamically stable He was started on aspirin 81 mg, losartan 12.5 mg, Farxiga, Lasix 20 mg oral and Lipitor Plan for cardiac cath on Monday Monitor hemoglobin Review of systems CONSTITUTIONAL: No fever, no malaise, no fatigue. HEENT: No recent visual problems or hearing problems. Denied any sore throat. CARDIOVASCULAR: No orthopnea, PND, no palpitations, no syncope. PULMONARY: No shortness of breath, no cough, no hemoptysis. GENITOURINARY: Denies any burning micturition, frequency, or urgency. MUSCULOSKELETAL/RHEUMATOLOGICAL: Denies any joint pain, swelling, or any muscle pain. ENDOCRINE: Denies any polyuria or polydipsia. Active Medications Generic Name Dose Route Start Last Admin Trade Name Freq PRN Reason Stop Dose Admin Acetaminophen 650 mg 05/09/24 12:46 Acetaminophen Tab 325 Mg Tab PO Q6HR PRN Mild Pain or Fever > 100.5 Alprazolam 0.25 mg 05/10/24 11:48 Alprazolam 0.25 Mg Tab PO Q6HR PRN Mild Anxiety Alprazolam 0.5 mg 05/10/24 11:48 Alprazolam 0.5 Mg Tab PO Q6HR PRN Moderate Anxiety Aspirin 81 mg 05/11/24 17:00 05/11/24 17:33 Aspirin 81 Mg PO 81 mg DAILY SUNDAY Administration Atorvastatin Calcium 40 mg 05/11/24 17:00 05/11/24 17:33 Atorvastatin 40 Mg Tab PO 40 mg DAILY SUNDAY Administration Dapagliflozin 10 mg 05/11/24 17:00 05/11/24 17:33 Dapagliflozin Propanediol 10 Mg Tablet PO 10 mg DAILY SUNDAY Administration Ezetimibe 10 mg 05/10/24 09:00 05/11/24 08:40 Ezetimibe 10 Mg Tab PO 10 mg DAILY SUNDAY Administration Furosemide 20 mg 05/11/24 17:00 05/11/24 17:33 Furosemide 20 Mg Tab PO 20 mg DAILY SUNDAY Administration Losartan Potassium 12.5 mg 05/11/24 17:00 05/11/24 17:33 Losartan 25 Mg Tab PO 12.5 mg DAILY SUNDAY Administration Metoprolol Succinate 50 mg 05/10/24 09:00 05/11/24 08:40 Metoprolol Succinate (Er) 50 Mg Tab.Er.24h PO 50 mg BID SUNDAY Administration Naloxone HCl 0.2 mg 05/09/24 12:46 Naloxone 0.4 Mg/Ml 1 Ml Vial IV Q2M PRN Opioid Reversal Nitroglycerin 0.4 mg 05/10/24 11:48 Nitroglycerin Sl Tabs 0.4 Mg Tab SUBLINGUAL Q5M PRN Chest Pain Psyllium Hydrophilic Mucilloid 6 gm 05/11/24 00:45 05/11/24 12:59 Psyllium Husk 100% 6 Gm Packet PO 6 gm DAILY PRN Administration Diarrhea Objective - Vital Signs Vital signs: Vital Signs Temp 98.1 F 05/11/24 08:46 Pulse 66 05/11/24 08:46 Resp 16 05/11/24 08:46 BP 137/85 05/11/24 08:46 Pulse Ox 95 05/11/24 09:04 FiO2 Intake & Output 05/10/24 05/11/24 05/11/24 18:59 06:59 18:59 Intake Total 118 370 Balance 118 370 Weight 108.862 kg 107.3 kg Intake: IV 10 Invasive Line 1 10 Oral 118 360 Other: Voiding Method External Catheter Toilet Toilet # Voids 4 - Exam GENERAL: The patient is alert and oriented x3, not in any acute distress. Well developed, well nourished. HEENT: Pupils are round and equally reacting to light. EOMI. No scleral icterus. No conjunctival pallor. Normocephalic, atraumatic. No pharyngeal erythema. No thyromegaly. CARDIOVASCULAR: S1 and S2 present. No murmurs, rubs, or gallops. PULMONARY: Chest is clear to auscultation, no wheezing , no crackles. ABDOMEN: Soft, nontender, nondistended, normoactive bowel sounds. No palpable organomegaly. MUSCULOSKELETAL: No joint swelling or deformity. EXTREMITIES: No cyanosis, clubbing, or pedal edema. NEUROLOGICAL: Gross neurological examination did not reveal any focal deficits. SKIN: No rashes. no petechiae. - Labs CBC & Chem 7: 05/09/24 06:41 05/09/24 06:41 Assessment and Plan Assessment: Severe aortic stenosis Acute CHF, unknown ejection fraction Positive occult blood in stool Mild elevation of troponin most likely secondary to her disease, rule out ischemic coronary artery disease Large left anterior abdominal wall hernia with no bowel obstruction or strangulation Right adrenal cystic mass, mostly benign but tumor not excluded Plan: Continue with aspirin Hold Pradaxa per cardiology team Cardiac cath on Monday Monitor hemoglobin, GI consult evaluated the patient and currently signed off over the weekend Continue with cardiac medication We recommend close outpatient follow-up for his adrenal mass. His PCP Dr. Kinney will resume the care of the patient this Sunday 05/13 Labs and medication were reviewed.. Continue same treatment. Continue with symptomatic treatment. Resume home medication. Monitor labs and vitals. DVT and GI prophylaxis. Further recommendations as per clinical course of the patient DVT prophylaxis: Hold Pradaxa GI Prophylaxis: Pepcid Prognosis is guarded
[2024-05-12 08:36] LABS: Basophils % (A) 1 %; Eosinophils # (A) 0.1 k/uL (0-0.7); Eosinophils % (A) 3 %; HCT 34.4 % (34.0-46.0); HGB 10.8 gm/dL (11.4-16.0); Hypochromasia Marked; Lymphocytes # (A) 0.9 k/uL (1.0-4.8); Lymphocytes % (A) 18 %; MCH 30.6 pg (25.0-35.0); MCHC 31.3 g/dL (31.0-37.0); MCV 97.8 fL (80.0-100.0); Mean Platelet Volume 7.3; Monocytes # (A) 0.4 k/uL (0-1.0); Monocytes % (A) 8 %; Neutrophils # (A) 3.3 k/uL (1.3-7.7); Neutrophils % (A) 68 %; Platelet Count 231 k/uL (150-450); RBC 3.52 m/uL (3.80-5.40); RDW 13.2 % (11.5-15.5); WBC 4.8 k/uL (3.8-10.6)
[2024-05-12 08:47] LABS: African American GFR (CKD) >90 (>60 ml/min/1.73 sqM); Anion Gap 2 mmol/L; Blood Urea Nitrogen 13 mg/dL (7-17); Calcium 8.9 mg/dL (8.4-10.2); Carbon Dioxide 31 mmol/L (22-30); Chloride 101 mmol/L (98-107); Glucose 118 mg/dL (74-99); Non-African American GFR(CKD) 85 (>60 ml/min/1.73 sqM); Potassium 4.3 mmol/L (3.5-5.1); Sodium 134 mmol/L (137-145)
--- NOTE | 2024-05-12 10:20 | P.PN ---
Subjective Progress Note Date: 05/12/24 History of present illness: This is an 86-year-old female patient of Dr. Patterson with past medical history of neuropathy, chronic pain, arthritis, chronic atrial fibrillation, hy pertension, obstructive sleep apnea noncompliant with CPAP, chronic lower extremity edema, morbid obesity, status post colectomy, moderate aortic stenosis. We have been asked to evaluate the patient for dyspnea. Patient states that yesterday she developed tremors that lasted for about 12 hours yes terday, onset while she was napping. She is also complained of shortness of breath starting on Monday. By her symptoms were much worse and she could hardly walk a short distance due to dyspnea. She states her breathing was rapid and she felt like she was going to pass out. She also had a little bit of nausea. She denies any chest pain, no palpitations. She states he missed 1 dose of her Lasix. Blood pressure 148/62, heart rate 75, pulse ox 95% on 2 L. Patient is seen today in the emergency center waiting for bed on the cardiac stepdown unit. Patient is status post 1 dose of IV Lasix 20 mg, lidocaine patch and IV morphine. Patient has been seen by GI due to positive fecal occult blood test and no plan for endoscopy at this time. Dr. Patterson discussed with patient that he would recommend heart catheterization to further evaluate coronary arteries which will need to be done if she has further valve workup done for replacement or repair. Patient is agreeable to move forward with this today. -EKG: Atrial fibrillation with ventricular rate of 72 bpm -Chest x-ray: Cardiomegaly, pulmonary venous congestion however no evidence of overt failure. Small effusion on the left lung base. -CT of the abdomen pelvis reveals large anterior lateral left abdominal wall hernia containing multiple loops of bowel but no evidence of bowel obstruction, strangulation or inflammation. Adnexal cystic mass. -Laboratory studies: WBC 6.9, hemoglobin 1.3. Sodium 136, potassium 4.7, BUN 10 creatinine 0.43. Troponin 0.034 and 0.054. proBNP 2480. Liver function are normal. Magnesium 1.9. Stool for occult blood positive. Influenza A, influenza B, RSV, COVID-19 not detected. -Home cardiac medications: Pradaxa 150 mg twice daily, Zetia 10 mg daily, Lasix 20 mg daily, metoprolol succinate 50 mg twice daily -Echocardiogram performed in the office on 02/08/2023 reveals EF 55 to 60%. Moderate concentric left ventricular hypertrophy. Severe aortic stenosis, severe mitral regurgitation, moderate tricuspid regurgitation. PASP 38 mmHg. Progress note 05/11 Patient is seen and examined at bedside this a.m. Her echocardiogram showed severe aortic stenosis mean gradient of 50 mmHg. May 12 Seen and examined bedside this a.m. Blood pressure and heart rate are holding within range. Kidney function is within range. Hemoglobin stable at 10 Physical examination: Gen: This is an 78-year-old female in no acute distress VS: reviewed HEENT: Head is atraumatic, normocephalic. Pupils equal, round. Sclerae is anicteric. NECK: Supple. No JVD. LUNGS: Diminished breath sounds. No wheezes or rhonchi. No intercostal retractions. HEART: Irregular rate and rhythm. 3/6 systolic murmur. ABDOMEN: Soft No tenderness. EXTREMITIES: Bilateral lower extremity edema. No calf tenderness. NEUROLOGICAL: Patient is awake, alert and oriented x3. Assessment: Severe symptomatic aortic stenosis acute HFpEF exacerbation Abnormal troponin, rule out acute coronary syndrome Chronic atrial fibrillation on Pradaxa, rate controlled. Valvular heart disease with severe aortic stenosis, severe mitral regurgitation, moderate tricuspid regurgitation Obstructive sleep apnea noncompliant with CPAP Stool for occult blood positive, GI plans no endoscopy Morbid obesity with BMI of 48 Hypertension Chronic lower extremity edema Plan: Continue aspirin 81 mg. Plan for cardiac catheterization tomorrow with Dr. Patterson. Hold Xarelto. Last dose was 05/11/2020 4 AM Continue p.o. diuretic and metoprolol. Do not increase the dose of metoprolol and diuretic further. Monitor blood pressure and heart rate. If blood pressure is high, consider adding low-dose losartan. Objective - Vital Signs Vital signs: Vital Signs Temp 98.0 F 05/12/24 07:56 Pulse 62 05/12/24 07:57 Resp 16 05/12/24 07:57 BP 123/62 05/12/24 07:56 Pulse Ox 95 05/12/24 07:56 FiO2 Intake & Output 05/11/24 05/12/24 05/12/24 18:59 06:59 18:59 Intake Total 500 20 10 Output Total 600 Balance -100 20 10 Weight 106.9 kg Intake: IV 20 20 10 Invasive Line 1 20 20 10 Oral 480 Output: Urine 600 Other: Voiding Method Toilet Toilet Toilet # Voids 2 1 # Bowel Movements 1 - Labs CBC & Chem 7: 05/12/24 07:36 05/12/24 07:36 Labs: Abnormal Lab Results - Last 24 Hours (Table) 05/12/24 05/12/24 Range/Units 07:36 07:36 RBC 3.52 L (3.80-5.40) m/uL Hgb 10.8 L (11.4-16.0) gm/dL Lymphocytes # 0.9 L (1.0-4.8) k/uL Sodium 134 L (137-145) mmol/L Carbon Dioxide 31 H (22-30) mmol/L Glucose 118 H (74-99) mg/dL
--- NOTE | 2024-05-12 12:48 | P.PN ---
Subjective Jonny Garcia is an 78 year-old female with PMH chronic atrial fibrillation, hypertension, obstructive sleep apnea noncompliant with CPAP, chronic lower extremity edema, morbid obesity, status post colectomy who presented to the ED with shortness of breath. She complains that over the last 3-4 days she is feeling winded and like she is going to pass out. She also had a little bit of nausea. She denies any chest pain, no palpitations. She states he missed 1 dose of her Lasix. Blood pressure 148/62, heart rate 75, pulse ox 95% on 2 L. 05/11 Patient feels comfortable, who presents with shortness of breath, he is not dyspneic anymore No chest pain There was some blood in the stomach, patient states he has been seen by , Which is not much concerned about it His hemoglobin is stable Hemodynamically stable He was started on aspirin 81 mg, losartan 12.5 mg, Farxiga, Lasix 20 mg oral and Lipitor Plan for cardiac cath on Monday Monitor hemoglobin 05/12 Patient breathing is better, no chest pain She denies any more blood in the stomach Labs reviewed and look stable Plan for cardiac cath tomorrow with Dr. Patterson Also I told the patient about her right adrenal mass and although it looks benign per radiologist however neoplasm cannot be excluded, I recommended to the patient to follow-up with her PCP Dr. Kinney tomorrow and she agrees to discuss with him tomorrow Objective - Vital Signs Vital signs: Vital Signs Temp 98.0 F 05/12/24 07:56 Pulse 62 05/12/24 07:57 Resp 16 05/12/24 11:26 BP 137/49 05/12/24 11:26 Pulse Ox 96 05/12/24 11:26 FiO2 Intake & Output 05/11/24 05/12/24 05/12/24 18:59 06:59 18:59 Intake Total 500 20 490 Output Total 600 Balance -100 20 490 Weight 106.9 kg Intake: IV 20 20 10 Invasive Line 1 20 20 10 Oral 480 480 Output: Urine 600 Other: Voiding Method Toilet Toilet Toilet # Voids 2 1 # Bowel Movements 1 - Exam GENERAL: The patient is alert and oriented x3, not in any acute distress. Well developed, well nourished. HEENT: Pupils are round and equally reacting to light. EOMI. No scleral icterus. No conjunctival pallor. Normocephalic, atraumatic. No pharyngeal erythema. No thyromegaly. CARDIOVASCULAR: S1 and S2 present. No murmurs, rubs, or gallops. PULMONARY: Chest is clear to auscultation, no wheezing , no crackles. ABDOMEN: Soft, nontender, nondistended, normoactive bowel sounds. No palpable organomegaly. MUSCULOSKELETAL: No joint swelling or deformity. EXTREMITIES: No cyanosis, clubbing, or pedal edema. NEUROLOGICAL: Gross neurological examination did not reveal any focal deficits. SKIN: No rashes. no petechiae. - Labs CBC & Chem 7: 05/12/24 07:36 05/12/24 07:36 Labs: Abnormal Lab Results - Last 24 Hours (Table) 05/12/24 05/12/24 Range/Units 07:36 07:36 RBC 3.52 L (3.80-5.40) m/uL Hgb 10.8 L (11.4-16.0) gm/dL Lymphocytes # 0.9 L (1.0-4.8) k/uL Sodium 134 L (137-145) mmol/L Carbon Dioxide 31 H (22-30) mmol/L Glucose 118 H (74-99) mg/dL Assessment and Plan Assessment: Severe aortic stenosis Acute CHF, unknown ejection fraction Positive occult blood in stool Mild elevation of troponin most likely secondary to her disease, rule out ischemic coronary artery disease Large left anterior abdominal wall hernia with no bowel obstruction or strangulation Right adrenal cystic mass, mostly benign but tumor not excluded Plan: Continue with aspirin Hold Pradaxa per cardiology team Cardiac cath on Monday Monitor hemoglobin, GI consult evaluated the patient and currently signed off over the weekend Continue with cardiac medication We recommend close outpatient follow-up for his adrenal mass. His PCP Dr. Kinney will resume the care of the patient this Sunday 05/13 Labs and medication were reviewed.. Continue same treatment. Continue with symptomatic treatment. Resume home medication. Monitor labs and vitals. DVT and GI prophylaxis. Further recommendations as per clinical course of the patient DVT prophylaxis: Hold Pradaxa GI Prophylaxis: Pepcid Prognosis is guarded
[2024-05-12] MEDS ORDERED: BENZOCAINE SPRAY 1 CAN TOPICAL PRN (22:29)
[2024-05-13 08:01] LABS: African American GFR (CKD) >90 (>60 ml/min/1.73 sqM); Anion Gap 6 mmol/L; Blood Urea Nitrogen 14 mg/dL (7-17); Calcium 9.1 mg/dL (8.4-10.2); Carbon Dioxide 28 mmol/L (22-30); Chloride 103 mmol/L (98-107); Glucose 88 mg/dL (74-99); Non-African American GFR(CKD) 87 (>60 ml/min/1.73 sqM); Potassium 4.3 mmol/L (3.5-5.1); Sodium 137 mmol/L (137-145)
[2024-05-13 08:24] LABS: Basophils % (A) 1 %; Eosinophils # (A) 0.2 k/uL (0-0.7); Eosinophils % (A) 3 %; HCT 37.7 % (34.0-46.0); HGB 11.3 gm/dL (11.4-16.0); Hypochromasia Marked; Lymphocytes # (A) 0.7 k/uL (1.0-4.8); Lymphocytes % (A) 15 %; MCH 30.1 pg (25.0-35.0); MCHC 30.1 g/dL (31.0-37.0); MCV 100.1 fL (80.0-100.0); Mean Platelet Volume 7.7; Monocytes # (A) 0.4 k/uL (0-1.0); Monocytes % (A) 8 %; Neutrophils # (A) 3.4 k/uL (1.3-7.7); Neutrophils % (A) 71 %; Platelet Count 211 k/uL (150-450); RBC 3.76 m/uL (3.80-5.40); RDW 13.2 % (11.5-15.5); WBC 4.8 k/uL (3.8-10.6)
[2024-05-13] MEDS: ATORVASTATIN 80 MG TAB PO STA (09:10)
[2024-05-13] MEDS: ASPIRIN 325 MG TAB PO STA (09:10)
[2024-05-13] MEDS: EMPTY BAG 1 BAG with SODIUM CHLORIDE 0.9% 1,000 ML IV ONE (09:10)
[2024-05-13] MEDS: BENZOCAINE SPRAY 1 EACH MM ONE (14:31)
[2024-05-13] MEDS: fentaNYL (PF) 50 MCG/1 ML VIAL IVP ONE (14:31)
[2024-05-13] MEDS: MIDAZOLAM 2 MG/2 ML VIAL IVP ONE (14:31)
[2024-05-13] MEDS: SODIUM CHLORIDE 0.9% 1,000 ML IV ONE (14:32)
[2024-05-13] MEDS: MIDAZOLAM 2 MG/2 ML VIAL IV PRN (14:32)
[2024-05-13] MEDS: fentaNYL (PF) 50 MCG/ML 5 ML AMP IVP PRN (14:32)
[2024-05-13] MEDS: LIDOCAINE 1% INJ 10MG/ML (20 ML MDV) SQ ONE (14:57)
[2024-05-13] MEDS: VERAPAMIL SYRINGE (5 MG/10 ML) INTRAARTER ONE (14:58)
[2024-05-13] MEDS: HEPARIN SODIUM 1,000 UN/ML (10ML VL) IVP ONE (15:03)
[2024-05-13] MEDS: IOPAMIDOL-370 100ML BTL INJ ONE (15:11)
--- NOTE | 2024-05-13 15:18 | P.TEE ---
Description of Procedure(s): Procedure performed: Transesophageal Echocardiogram with color flow doppler, pulsed wave doppler and continuous wave doppler, moderate conscious sedation Moderate conscious sedation: Moderate conscious sedation was supplied with direct supervision of myself using Versed and Fentanyl. Complications: none Indications: aortic stenosis PROCEDURE: After the risks, benefits and alternatives of the above mentioned procedure was explained in detail with the patient, informed consent was obtained. Patient was brought to the lab in a fasting state. Patient was given IV Versed and Fentanyl for sedation. The throat was sprayed with Hurricane to anesthetize the throat. A lubricated Omni probe was then introduced into the esophagus and stomach and multiple views were obtained. 2D echo with color flow doppler, pulsed wave doppler and continuous wave doppler was utilized. Agitated saline bubbles were injected to assess for any intra-atrial shunt. The probe was then removed. Patient tolerated the procedure well. Patient was transferred to the post procedure area in stable and satisfactory condition. FINDINGS: 1. The aortic valve is tricuspid with severe aortic stenosis aortic valve area 0.9 centimeters squared by planimetry with mainly restriction of the non- and left coronary cusp and more mobile right coronary cusp. 2. The mitral valve appears be normal moderate to severe predominantly central mitral regurgitation with Pisa radius 0.9 cm with a Nyquist limit of 0.39. 3. Tricuspid valve appears to be normal with [id number] tricuspid regurgitation. 4. The interatrial septum is intact. No evidence of PFO. 5. Left atrial appendage is free of clot. 6. Left ventricular ejection fraction 50-55% 7. Severe biatrial enlargement
--- NOTE | 2024-05-13 15:22 | P.CARDCATH ---
Description of Procedure: PROCEDURES PERFORMED: Left heart catheterization, bilateral coronary angiography, ultrasound guided arterial access INDICATION: aortic stenosis CONSENT:I have discussed the risks, benefits and alternative therapies for the above-mentioned procedure and for both sedation/analgesia as well as necessary blood product administration, if indicated, as they pertain to this patient. The patient has indicated understanding and acceptance of the risks and procedures discussed. PROCEDURE: After the risks, benefits and alternatives of the above mentioned procedure explained in detail with the patient, informed consent was obtained. Patient was taken to the catheterization lab and prepped and draped in usual fashion. Ultrasound guidance was used to assess for arterial access. 1% lidocaine was used to anesthetize the right radial artery. A 6-Haitian sheath was placed in the right radial artery using modified Seldinger technique and ultrasound guidance. Left coronary angiography was performed with a 5-Haitian JL 3.5 catheter and right coronary angiography was performed with a 5-Haitian FR5 catheter in various views. A 5-Haitian FR5 catheter was inserted into the left ventricle and pressure measurements were obtained. The right radial sheath was removed and a TR band was placed with hemostasis achieved. The patient tolerat ed the procedure well. Patient was transported back to the post catheterization holding area in stable condition. Conscious Sedation: Patient was monitored under the direct supervision of myself for conscious sedation using Versed and fentanyl for a total duration of 13 minutes HEMODYNAMICS: aorta: 132/65 LV: 165/10, LVEDP 20, mean gradient 33 mmHg across the valve SELECTIVE CORONARY ARTERIOGRAPHY: LEFT MAIN: The left main is a large caliber vessel which bifurcates into the LAD and circumflex. There is no significant stenosis. LEFT ANTERIOR DESCENDING CORONARY ARTERY: LAD is a large caliber vessel which wraps around to the apex. There is no significant stenosis. LEFT CIRCUMFLEX CORONARY ARTERY: Left circumflex is a moderate caliber vessel without significant stenosis. RIGHT CORONARY ARTERY: The right coronary artery is a large caliber vessel which gives off a PDA and PLV branch and is the dominant vessel. There is no significant stenosis. FINAL IMPRESSION: 1. Normal coronary arteries as described above. 2. Elevated left sided filling pressures 3. Severe aortic stenosis, mean gradient 33 mm across the valve PLAN: 1. Aggressive risk factor modification per most recent ACC/AHA guidelines. 2. Follow-up in the office in 1-2 weeks.
--- NOTE | 2024-05-13 21:39 | P.PN ---
Subjective Progress Note Date: 05/13/24 Jonny Garcia is an 78 year-old female with PMH chronic atrial fibrillation, hypertension, obstructive sleep apnea noncompliant with CPAP, chronic lower extremity edema, morbid obesity, status post colectomy who presented to the ED with shortness of breath. She complains that over the last 3-4 days she is feeling winded and like she is going to pass out. She also had a little bit of nausea. She denies any chest pain, no palpitations. She states he missed 1 dose of her Lasix. Blood pressure 148/62, heart rate 75, pulse ox 95% on 2 L. 05/11 Patient feels comfortable, who presents with shortness of breath, he is not dyspneic anymore No chest pain There was some blood in the stomach, patient states he has been seen by , Which is not much concerned about it His hemoglobin is stable Hemodynamically stable He was started on aspirin 81 mg, losartan 12.5 mg, Farxiga, Lasix 20 mg oral and Lipitor Plan for cardiac cath on Monday Monitor hemoglobin 05/12 Patient breathing is better, no chest pain She denies any more blood in the stomach Labs reviewed and look stable Plan for cardiac cath tomorrow with Dr. Patterson Also I told the patient about her right adrenal mass and although it looks benign per radiologist however neoplasm cannot be excluded, I recommended to the patient to follow-up with her PCP Dr. Kinney tomorrow and she agrees to discuss with him tomorrow 05/13 Pt seen and evaluated, she is scheduled for cath today with dr patterson. she denies chest pain or shortness of breath. Objective - Vital Signs Vital signs: Vital Signs Temp 97.8 F 05/13/24 09:15 Pulse 67 05/13/24 16:44 Resp 16 05/13/24 16:14 BP 127/57 05/13/24 16:44 Pulse Ox 96 05/13/24 16:14 FiO2 Intake & Output 05/13/24 05/13/24 05/14/24 06:59 18:59 06:59 Intake Total 20 230 Balance 20 230 Weight 105.1 kg Intake: IV 20 110 Invasive Line 1 20 10 Oral 120 Other: Voiding Method Toilet Toilet # Voids 1 4 - Exam Gen: well developed, NAD CV: RRR, systolic murmur Pulm: CTAB Abd; Soft, nontender - Labs CBC & Chem 7: 05/13/24 07:16 05/13/24 07:16 Labs: Abnormal Lab Results - Last 24 Hours (Table) 05/13/24 Range/Units 07:16 RBC 3.76 L (3.80-5.40) m/uL Hgb 11.3 L (11.4-16.0) gm/dL MCV 100.1 H (80.0-100.0) fL MCHC 30.1 L (31.0-37.0) g/dL Lymphocytes # 0.7 L (1.0-4.8) k/uL Assessment and Plan Plan: Continue with current regimen, ASA, lipitor, metoprolol, lasix. Discharge planning
[2024-05-13 21:46] VITALS: RESP 18
[2024-05-13] MEDS: ZINC OXIDE PASTE (Z-GUARD) 1 APPLIC TOPICAL PRN (22:23)
[2024-05-14] MEDS: ACETAMINOPHEN TAB 325 MG TAB PO PRN (03:14)
--- NOTE | 2024-05-14 10:49 | P.PN ---
Subjective HISTORY OF PRESENT ILLNESS: This is an 86-year-old female patient of Dr. Patterson with past medical history of neuropathy, chronic pain, arthritis, chronic atrial fibrillation, hypertension, obstructive sleep apnea noncompliant with CPAP, chronic lower extremity edema, morbid obesity, status post colectomy, moderate aortic stenosis. We have been asked to evaluate the patient for dyspnea. Patient states that yesterday she developed tremors that lasted for about 12 hours yesterday, onset while she was napping. She is also complained of shortness of breath starting on Monday. By her symptoms were much worse and she could hardly walk a short distance due to dyspnea. She states her breathing was rapid and she felt like she was going to pass out. She also had a little bit of nausea. She denies any chest pain, no palpitations. She states he missed 1 dose of her Lasix. Blood pressure 148/62, heart rate 75, pulse ox 95% on 2 L. Patient is seen today in the emergency center waiting for bed on the cardiac stepdown unit. Patient is status post 1 dose of IV Lasix 20 mg, lidocaine patch and IV morphine. Patient has been seen by GI due to positive fecal occult blood test and no plan for endoscopy at this time. Dr. Patterson discussed with patient that he would recommend heart catheterization to further evaluate coronary arteries which will need to be done if she has further valve workup done for replacement or repair. Patient is agreeable to move forward with this today. -EKG: Atrial fibrillation with ventricular rate of 72 bpm -Chest x-ray: Cardiomegaly, pulmonary venous congestion however no evidence of overt failure. Small effusion on the left lung base. -CT of the abdomen pelvis reveals large anterior lateral left abdominal wall hernia containing multiple loops of bowel but no evidence of bowel obstruction, strangulation or inflammation. Adnexal cystic mass. -Laboratory studies: WBC 6.9, hemoglobin 1.3. Sodium 136, potassium 4.7, BUN 10 creatinine 0.43. Troponin 0.034 and 0.054. proBNP 2480. Liver function are normal. Magnesium 1.9. Stool for occult blood positive. Influenza A, influenza B, RSV, COVID-19 not detected. -Home cardiac medications: Pradaxa 150 mg twice daily, Zetia 10 mg daily, Lasix 20 mg daily, metoprolol succinate 50 mg twice daily -Echocardiogram performed in the office on 02/08/2023 reveals EF 55 to 60%. Moderate concentric left ventricular hypertrophy. Severe aortic stenosis, severe mitral regurgitation, moderate tricuspid regurgitation. PASP 38 mmHg. 05/14/2024 Patient is status post cardiac catheterization yesterday with Dr. Patterson revealing normal coronary arteries, elevated left-sided filling pressures, and severe aortic stenosis with mean gradient 33 mm across the valve. She also underwent NISHANT revealing severe aortic stenosis, mitral valve appeared to be normal moderate to severe predominantly central mitral regurgitation, mild to moderate tricuspid regurgitation, interatrial septum is intact with no evidence of PFO, left atrial appendage is free of clot, ejection fraction 50 to 55% with severe biatrial enlargement. Patient examined this morning. She is sitting up in the chair. She denies chest pain or pressure. She denies shortness of breath. PHYSICAL EXAM: VITAL SIGNS: Reviewed. GENERAL: Well-developed in no acute distress. NECK: Supple. No JVD or thyromegaly LUNGS: Respirations even and unlabored. Lungs essentially clear to auscultation bilaterally. HEART: Regular rate and rhythm. S1 and S2 heard. Systolic murmur noted. EXTREMITIES: Normal range of motion. No clubbing or cyanosis. Peripheral pulses intact. No lower extremity edema ASSESSMENT: Shortness of breath Acute on chronic heart failure with preserved EF Elevated troponin, flat, type II MD secondary to oxygen supply/demand mismatch Status post cardiac cath revealing normal coronary arteries, 05/13/2024 Permanent atrial fibrillation on Pradaxa outpatient Valvular heart disease with severe aortic stenosis, severe mitral regurgitation, moderate tricuspid regurgitation Obstructive sleep apnea noncompliant with CPAP Stool for occult blood positive, GI plans no endoscopy Morbid obesity with BMI of 48 Hypertension Chronic lower extremity edema PLAN: Reevaluate on an outpatient basis to resume Pradaxa Continue additional cardiac medications Patient is stable for discharge home today from cardiac standpoint Patient to follow-up postdischarge with Dr. Patterson Nurse practitioner note has been reviewed by physician. Signing provider agrees with the documented findings, assessment, and plan of care documented by [employer] as a scribe. Objective - Vital Signs Vital signs: Vital Signs Temp 98.4 F 05/14/24 03:14 Pulse 64 05/14/24 03:14 Resp 18 05/14/24 03:14 BP 119/63 05/14/24 03:14 Pulse Ox 96 05/14/24 03:14 FiO2 Intake & Output 11/25/24 11/26/24 11/26/24 18:59 06:59 18:59 Intake Total 230 Balance 230 Weight 106.7 kg Intake: IV 110 Invasive Line 1 10 Oral 120 Other: Voiding Method Toilet Toilet # Voids 4 1 - Labs CBC & Chem 7: 05/13/24 07:16 05/13/24 07:16 Labs: Abnormal Lab Results - Last 24 Hours (Table) 05/13/24 Range/Units 07:16 RBC 3.76 L (3.80-5.40) m/uL Hgb 11.3 L (11.4-16.0) gm/dL MCV 100.1 H (80.0-100.0) fL MCHC 30.1 L (31.0-37.0) g/dL Lymphocytes # 0.7 L (1.0-4.8) k/uL
[2024-05-14 11:26] VITALS: PULSE 67; TEMP 98.1
--- NOTE | 2024-05-14 11:48 | US ---
EXAMINATION TYPE: US carotid duplex BILAT DATE OF EXAM: 05/13/2024 COMPARISON: NONE CLINICAL INDICATION: Female, 78 years old with history of Pre-Op Cardiac Surgery; preop Additional History: Z01.81- Pre-operative exam TECHNIQUE: Grayscale, color Doppler and spectral Doppler evaluation of the bilateral carotid systems and vertebral arteries. Indirect Doppler criteria was utilized. FINDINGS: EXAM MEASUREMENTS: RIGHT: Peak Systolic Velocity (PSV) cm/sec ----- Right CCA: 77.9 ----- Right ICA: 141.5 ----- Right ECA: 88.6 ICA/CCA ratio: 1.8 RIGHT: End Diastole cm/sec ----- Right CCA: 12.0 ----- Right ICA: 38.1 ----- Right ECA: 5.1 LEFT: Peak Systolic Velocity (PSV) cm/sec ----- Left CCA: 66.8 ----- Left ICA: 108.2 ----- Left ECA: 64.4 ICA/CCA ratio: 1.6 LEFT: End Diastole cm/sec ----- Left CCA: 16.3 ----- Left ICA: 22.8 ----- Left ECA: 6.2 VERTEBRALS (direction of flow): Right Vertebral: Antegrade Left Vertebral: Antegrade Rhythm: Normal AMBULATORY ANALYST NOTES: Plaque seen in bilateral bulbs, right distal ICA velocity appears slightly elevate d Color Doppler imaging shows patency with blood flow throughout the carotid artery. Spectral waveforms are within normal limits. IMPRESSION: Atherosclerotic change and the right carotid bifurcation with a mild or borderline moderate proximal right ICA stenosis. Criteria for Assigning % of Stenosis / Diameter reduction (Estimation based on the indirect measurements of the internal carotid artery velocities (ICA PSV). 1. Normal (no stenosis)=ICA PSV < 125 cm/s: ratio < 2.0: ICA EDV<40 cm/s. 2. Less than 50% stenosis=ICA PSV < 125 cm/s: ratio < 2.0: ICA EDV<40 cm/s. 3. 50 to 69% stenosis=ICA PSV of 125 to 230 cm/s: ration 2.0 ? 4.0: ICA EDV 40-100 cm/s. 4. Greater than 70% stenosis to near occlusion= ICA PSV > 230 cm/s: ratio > 4.0: ICA EDV > 100 cm/s. 5. Near occlusion= ICA PSV velocities may be low or undetectable: variable ratio and ICA EDV. 6. Total occlusion=unable to detect flow. [facility], , 05/14/2024 11:46 AM
[2024-05-14 14:51] VITALS: BP 127/68
== END 2024-05-14 15:38 | disposition home or self-care (01) | DRG 280 ==
LOC: EC 05:58 → 6NMEDSUR 15:11 → 3SCARD 16:59 → OBSVTOIN 05-12 23:18
PROVIDERS: ADMIT Family Medicine; ATTEND Family Medicine
PROC: B2111ZZ Fluoroscopy of Multiple Coronary Arteries using Low Osmolar Contrast (ICD-10-PCS; 2024-05-13)
PROC: B246ZZ4 Ultrasonography of Right and Left Heart, Transesophageal (ICD-10-PCS; 2024-05-13)
PROC: 4A023N7 Measurement of Cardiac Sampling and Pressure, Left Heart, Percutaneous Approach (ICD-10-PCS; principal; 2024-05-13 07:30)
DX: I11.0 Hypertensive heart disease with heart failure (principal); I50.33 Acute on chronic diastolic (congestive) heart failure; I21.A1 Myocardial infarction type 2; I48.21 Permanent atrial fibrillation; Z68.1 Body mass index [BMI] 19.9 or less, adult; K92.1 Melena; D35.01 Benign neoplasm of right adrenal gland; I08.3 Combined rheumatic disorders of mitral, aortic and tricuspid valves; G47.33 Obstructive sleep apnea (adult) (pediatric); Z11.52 Encounter for screening for COVID-19; Z91.199 Patient's noncompliance with other medical treatment and regimen due to unspecified reason; E66.01 Morbid (severe) obesity due to excess calories; Z79.899 Other long term (current) drug therapy; K43.9 Ventral hernia without obstruction or gangrene; Z90.49 Acquired absence of other specified parts of digestive tract; Z93.3 Colostomy status
CPT/HCPCS: 36415; 51701; 71045; 74177; 80048; 80053; 81003; 82272; 83036; 83735; 83880; 84443; 84484; 85025; 85610; 85730; 87070; 87636; 93005; 93306; 93312; 93320; 93325; 93880; 94150; 94760; 96374; 96375; 96376; 99285

== ENCOUNTER → 2024-05-30 | Outpatient (CLI) | payer MEDICARE ==
[2024-05-30 10:04] LABS: ALT 15 U/L (4-34); AST 25 U/L (14-36); African American GFR (CKD) >90 (>60 ml/min/1.73 sqM); Albumin 4.4 g/dL (3.5-5.0); Alkaline Phosphatase 82 U/L (38-126); Anion Gap 7 mmol/L; Bilirubin,Unconjugated 0.8 mg/dL (0.0-1.1); Blood Urea Nitrogen 7 mg/dL (7-17); Calcium 9.5 mg/dL (8.4-10.2); Carbon Dioxide 28 mmol/L (22-30); Chloride 103 mmol/L (98-107); Globulin 2.2 g/dL; Glucose 91 mg/dL (74-99); Non-African American GFR(CKD) >90 (>60 ml/min/1.73 sqM); Potassium 3.8 mmol/L (3.5-5.1); Sodium 138 mmol/L (137-145); Total Bilirubin 0.8 mg/dL (0.2-1.3); Total Protein 6.6 g/dL (6.3-8.2)
[2024-05-30 10:11] LABS: Prothrombin Time 11.1 sec (10.0-12.5)
[2024-05-30 10:12] LABS: NT-Pro-B-Type Natriuretic Pept 2110 pg/mL
[2024-05-30 10:21] LABS: Basophils % (A) 1 %; Eosinophils # (A) 0.1 k/uL (0-0.7); Eosinophils % (A) 1 %; HCT 36.3 % (34.0-46.0); HGB 11.3 gm/dL (11.4-16.0); Hypochromasia Marked; Lymphocytes # (A) 0.9 k/uL (1.0-4.8); Lymphocytes % (A) 15 %; MCH 29.6 pg (25.0-35.0); MCV 95.2 fL (80.0-100.0); Mean Platelet Volume 7.6; Monocytes # (A) 0.4 k/uL (0-1.0); Monocytes % (A) 6 %; Neutrophils # (A) 4.7 k/uL (1.3-7.7); Neutrophils % (A) 75 %; Platelet Count 230 k/uL (150-450); RBC 3.81 m/uL (3.80-5.40); RDW 14.2 % (11.5-15.5); WBC 6.3 k/uL (3.8-10.6)
--- NOTE | 2024-05-30 12:36 | CT ---
EXAMINATION TYPE: CT TAVR Planning DATE OF EXAM: 05/30/2024 COMPARISON: None CLINICAL INDICATION: Female, 78 years old with history of I35.1 NONRHEUMATIC AORTIC (VALVE) INSUFFICI ENCY; pre tavr TECHNIQUE: CT scan of the Neck, chest, abdomen and pelvis is performed with IV contrast; Helical imaging obtaine d through the chest, abdomen and pelvis during arterial phase dynamic administration of radiographic contrast intravenously. CONTRAST: 150 mL of Isovue 370. CT DLP: 2692 mGycm, Automated exposure control for dose reduction was used. CT CTDI: mGy FINDINGS: See report from [employer] regarding preprocedural planning HEART AND PERICARDIUM: Heart is mildly to moderately enlarged.. The left atrium is prominent. There i s no pericardial effusion. AV Calcification Severity: Moderate ARTERIAL VASCULATURE: The aortic arch and thoracic aorta demonstrate a normal course and caliber. The pulmonary outflow tra ct appears within normal limits for size. The thoracic aorta is normal in course and caliber. There is no evidence of aortic dissection, aneurysm or acute aortic injury. Great arch vessels patent and n ormal in course and caliber. PULMONARY ARTERIAL VASCULATURE: Normal caliber., No evidence for central filling defect. NECK AND THYROID: No significant findings. The carotid bifurcations are patent. CHEST: LUNGS: There is patchy airspace groundglass density could reflect small vessel disease mild edema. LARGE AIRWAYS: Central airways are patent. PLEURAL: No pleural effusion or thickening. No pneumothorax. MEDIASTINUM AND TAJ: No mediastinal or hilar lymphadenopathy or soft tissue mass. SOFT TISSUES/LYMPH NODES: Unremarkable.Normal. MUSCULOSKELETAL: No acute osseous abnormalities ABDOMEN/PELVIS: Please note arterial phase of the imaging limits detailed evaluation of the solid abdominal organs. ABDOMEN LIVER: Unremarkable GALLBLADDER AND BILE DUCTS: Unremarkable. PANCREAS: Unremarkable. SPLEEN: Unremarkable. ADRENAL GLANDS: Unremarkable. KIDNEYS AND URETERS: No evidence of hydronephrosis or renal calculus. The ureters are unremarkable. PELVIS BLADDER: Unremarkable REPRODUCTIVE: Unremarkable. ABDOMEN & PELVIS STOMACH AND BOWEL: There is a large left lateral abdominal wall hernia containing multiple loops of b owel there is no bowel obstruction or strangulation. No evidence of bowel obstruction. PERITONEUM/RETROPERITONEUM: No evidence of pneumoperitoneum or free fluid. VASCULATURE: No evidence of aortic aneurysm. MUSCULOSKELETAL: No acute osseous abnormalities LYMPH NODES: No gross evidence for lymphadenopathy. SOFT TISSUE/ABDOMINAL WALL: Unremarkable Other Lines/Tubes/Devices/Hardware: None IMPRESSION: 1. Moderate calcifications of the aortic valve. No aortic aneurysm or dissection. 2. No acute process. Possibly mild small vessel disease are pulmonary edema. 3. See report from [employer] regarding preprocedural planning 4. Mild to moderate cardiomegaly. 5. Large left anterior abdominal wall hernia containing multiple nondilated nonstrangulated loops of bowel. 6. No significant abnormality seen within the soft tissues of the neck. [facility], Workstation: NICOLE 05/30/2024 12:34 PM
[2024-05-30 15:28] LABS: Chol/HDL Ratio 2.13 Ratio; LDL Cholesterol,Calculated 43.9 mg/dL (0.0-131.0); VLDL Calculation 13.26 mg/dL (5.00-40.00)
[2024-05-30 15:56] LABS: Appearance,Urine Clear (Clear); Bilirubin,Urine Negative (Negative); Blood,Urine Negative (Negative); Color,Urine Yellow (Yellow); Ketones,Urine Negative (Negative); Nitrite,Urine Negative (Negative); PH, Urine 6.5; Specific Gravity,Urine 1.009 (1.001-1.030); Urobilinogen,Urine 0.2 E.U./DL
== END | disposition home or self-care (01) ==
LOC: LABWHC1 09:07
PROVIDERS: ATTEND Thoracic Surgery (Cardiothoracic Vascular Surgery)
DX: I35.0 Nonrheumatic aortic (valve) stenosis (principal); E11.9 Type 2 diabetes mellitus without complications; E07.9 Disorder of thyroid, unspecified; E78.5 Hyperlipidemia, unspecified; E87.8 Other disorders of electrolyte and fluid balance, not elsewhere classified; N28.9 Disorder of kidney and ureter, unspecified; Z01.818 Encounter for other preprocedural examination; Z79.899 Other long term (current) drug therapy; R35.0 Frequency of micturition; Z79.01 Long term (current) use of anticoagulants; R58 Hemorrhage, not elsewhere classified
CPT/HCPCS: 83880; 80061; 80053; 84443; 82248; 83735; 85025; 85610; 85730; 81003; 87086; 83036; 71275; 74174; 93005; 36415; Q9967

== ENCOUNTER → 2024-07-10 | Outpatient (CLI) | payer MEDICARE ==
[2024-07-10 15:31] LABS: % Iron Saturation 7.96 (12.00-45.00)
[2024-07-10 15:39] LABS: Basophils # (A) 0.04 X 10*3/uL (0.00-0.10); Basophils % (A) 0.7 %; Eosinophils # (A) 0.11 X 10*3/uL (0.04-0.35); HGB 9.7 g/dL (12.0-15.0); Lymphocytes # (A) 0.97 X 10*3/uL (0.90-5.00); Lymphocytes % (A) 17.9 %; MCH 26.6 pg (27.0-32.0); MCHC 29.4 g/dL (32.0-37.0); MCV 90.4 FL (80.0-97.0); Mean Platelet Volume 10.2 FL (9.5-12.2); Monocytes # (A) 0.64 X 10*3/uL (0.20-1.00); Monocytes % (A) 11.8 %; NRBC Per 100 WBC 0 X 10*3/uL (0.00-0.01); Neutrophils # (A) 3.63 X 10*3/uL (1.80-7.70); Neutrophils % (A) 67.2 %; Platelet Count 275 X 10*3/uL (140-440); RBC 3.65 X 10*6/uL (4.10-5.20); RDW 15.1 % (11.5-14.5); WBC 5.41 X 10*3/uL (4.50-10.00)
[2024-07-10 15:47] LABS: Ferritin 62.6 ng/mL (10.0-291.0)
== END | disposition home or self-care (01) ==
LOC: LABWHC1 09:58
PROVIDERS: ATTEND Internal Medicine Gastroenterology
DX: D64.9 Anemia, unspecified (principal)
CPT/HCPCS: 36415; 82728; 83540; 83550; 85025

== ENCOUNTER 2024-07-31 08:00 | Inpatient (IN) | payer MEDICARE ==
[~2024-07-31 08:00] MED LIST: CLEVIDIPINE BUTYRATE 25 MG in EMPTY BAG 1 BAG IV PRN; ELECTROLYTE-A SOLUTION 1,000 ML with POTASSIUM CHLORIDE 100 MEQ, MAGNESIUM SULFATE 16 M... IV PRN; INSULIN REGULAR 100 UNIT in SODIUM CHLORIDE 0.9% 100 ML IV PRN; NITROGLYCERIN-D5W PMX 25 MG/250 ML BTL IV PRN; PROTAMINE SULFATE 250 MG in EMPTY BAG 1 BAG IV PRN; SODIUM CHLORIDE 0.9% 500 ML 500 ML INTRAARTER PRN; TRANEXAMIC ACID 2,000 MG in SODIUM CHLORIDE 0.9% 80 ML IV PRN
[2024-07-31] MEDS: ASPIRIN 325 MG TAB PO ONE (10:19)
[2024-07-31] MEDS: METOPROLOL TARTRATE 25 MG TAB PO ONE (10:19)
[2024-07-31] MEDS: ATORVASTATIN 10 MG TAB PO ONE (10:19)
[2024-07-31] MEDS: CLOPIDOGREL 75 MG TAB PO ONE (10:19)
[2024-07-31 10:39] LABS: Glucose,Whole Blood 95 mg/dL (70-110)
[2024-07-31 10:50] LABS: Glucose,Whole Blood 105 mg/dL (70-110)
[2024-07-31] MEDS: SODIUM CHLORIDE 0.9% 1,000 ML IV ONE (10:51)
[2024-07-31 11:26] LABS: Prothrombin Time 11.4 sec (10.0-12.5)
--- NOTE | 2024-07-31 12:56 | P.ANPRN ---
Procedure Note - Anesthesia - NISHANT Intraop Pre Bypass NISHANT Intraop - Anesthesia Indication: transcatheter aortic valve replacement Date of Procedure: 07/31/24 Pre-operative Diagnosis: severe aortic stenosis Post-operative Diagnosis: severe aortic stenosis status post aortic valve replacement Surgeon: Fernando Del Valle Left Ventricle: ejection fraction 55-50% Ejection Fraction: Normal Regional Wall Motion Abnormalities: None Left Ventricle Hypertrophy: Yes R. Ventricle Function: Normal Aortic Valve: severe aortic stenosis noted. Peak gradient 45 mm of mercury mean gradient 77 mm of mercury. Valve area 0.6 cm2, Anatomy: Trileaflet Aortic Stenosis: Severe Aortic Regurgitation: Trace Mitral Stenosis: None Mitral Regurgitation: Moderate Tricuspid Stenosis: None Tricuspid Regurgitation: Mild Pulmonic Stenosis: None R. Atrial Dilation: Yes L. Atrial Dilation: Yes Aortic Dissection: No Aortic Calcification: None Plural Effusion: None - NISHANT Intraop Post Bypass NISHANT Intraop Post Bypass Procedure Performed: I'm scheduled aortic valve replacement Ejection Fraction: Normal Regional Wall Motion Abnormalities: None R. Ventricle Function: Normal Aortic Valve: prosthetic aortic valve noted. Appears to be seated well.mild paravalvular leak noted. Peak gradient across the prosthetic valve is 19 mmHg and mean gradient is 4 mmHg. Aortic Dissection: No
[2024-07-31] MEDS ORDERED: fentaNYL (PF) 50 MCG/ML 2 ML AMP ONE (13:05)
[2024-07-31] MEDS ORDERED: PROPOFOL 10 MG/ML 20 ML VIAL IV ONE (13:05)
[2024-07-31] MEDS ORDERED: ePHEDrine 50 MG/ML 1 ML VIAL ONE (13:05)
[2024-07-31] MEDS ORDERED: ROCURONIUM 10 MG/ML (5 ML VIAL) IV ONE (13:05)
[2024-07-31] MEDS ORDERED: GLYCOPYRROLATE 0.2 MG/ML 2 ML VIAL ONE (13:05)
[2024-07-31] MEDS ORDERED: SUCCINYLCHOLINE CHLORIDE 200 MG/10 ML VIAL IV ONE (13:05)
[2024-07-31] MEDS ORDERED: PROTAMINE SULFATE 10 MG/ML 5 ML VIAL ONE (13:05)
[2024-07-31] MEDS ORDERED: HEPARIN SODIUM,PORCINE 10,000 UNIT/ML 1 ML VIAL ONE (13:05)
[2024-07-31] MEDS ORDERED: NEOSTIGMINE 1 MG/ML 10 ML VIAL ONE (13:05)
[2024-07-31] MEDS ORDERED: PHENYLEPHRINE 10 MG/ML VIAL ONE (13:05)
--- NOTE | 2024-07-31 15:02 | P.OP ---
Date of Procedure: 07/31/24 Preoperative Diagnosis: Symptomatic calcific aortic stenosis Postoperative Diagnosis: Same Procedure(s) Performed: Percutaneous transfemoral transcatheter aortic valve replacement with 29 mm Medtronic evolute flex plus transcatheter aortic valve prosthesis Implants: 29 mm Medtronic evolute flex plus transcatheter aortic valve prosthesis Anesthesia: GETA Surgeon: Fernando Del Valle (Cardiovascular surgeon) Sheet Hanger #1: Min Patterson (teaching fellow) Pathology: none sent Condition: stable Disposition: PACU Indications for Procedure: 78-year-old morbidly obese female with progressive dyspnea and evidence of severe aortic valvular stenosis. Patient was evaluated in the high risk valve clinic and felt appropriate for transcatheter aortic valve replacement. Elective surgery was scheduled. Operative Findings: Tricuspid valve was very heavily calcified with only the right coronary cusp moving. We measured a 42 mm gradient across the valve with simultaneous intraventricular and intra-aortic blood pressure monitoring. Following valve deployment, NISHANT demonstrated excellent position of the valve with only trivial paravalvular leak. Gradient across the valve was reduced to a mean of 4 mm. Description of Procedure: Patient was brought to the cardiac catheterization laboratory and placed supine on the table. General anesthesia was induced. She was appropriately positioned prepped and draped. Bilateral femoral arterial access was obtained with a 7 Eritrean sheath on the right and a long 6 [place]rean sheath on the left. Left femoral venous access was obtained and a 8 [place]an sheath placed. Through this a transvenous pacer was advanced into the right ventricle and tested. Pigtail was placed through the lung sheath into the right coronary sinus of Valsalva from a left femoral arterial approach. Right Eritrean sheath was removed and 2 Perclose devices placed in the right groin. An 8 [place]rean sheath was placed through these. This was then exchanged for a 14 [place]an sheath over a stiff wire. The patient was systemically heparinized and ACT is maintained greater than 250. Aortic valve was crossed from the right femoral arterial access. Pigtail catheter was positioned in the apex of the left ventricle. Transvalvular gradients were measured. Safari wire was placed in the apex of the ventricle. Balloon valvuloplasty of the aortic valve was performed with a 20 mm true balloon over the safari wire under rapid ventricular pacing. This proceeded uneventfully. A 29 mm [employer] evolute flex plus valve had been loaded on the back table and had been checked under fluoroscopy. Maintaining the wire in the apex of the left ventricle, the 14 [place]an sheath was exchanged for the valve delivery system and this was advanced through the arterial tree and across the aortic valve. 29 Evolut valve was deployed under rapid ventricular pacing with deployment levels of 1 on the right and 3 on the left. NISHANT demonstrated excellent expansion of the valve with minimal gradient and no significant paravalvular leak. Valve deployment system and wire were carefully pulled back in the valve deployment system exchanged for 14 Eritrean sheath. Heparin was reversed with protamine. 14 [place]an sheath was removed and the 2 Perclose devices successfully deployed with excellent hemostasis. Completion angiography showed good flow with no leak. Temporary pacer and both left groin sheaths were removed and controlled by cardiology. Patient was awakened and transferred to recovery in stable condition.
[2024-07-31] MEDS: IV FLUID CONTINUATION 1,000 ML IV ONE (15:04)
[2024-07-31] MEDS ORDERED: Magnesium Replacement Protocol 1 EACH MISC MISCELLANE PRN (15:09)
[2024-07-31] MEDS ORDERED: Potassium Replacement Protocol 1 EACH MISC MISCELLANE PRN (15:09)
[2024-07-31] MEDS ORDERED: ACETAMINOPHEN TAB 325 MG TAB PO PRN (15:09)
[2024-07-31] MEDS ORDERED: IPRATROPIUM-ALBUTEROL 3 ML NEB INHALATION PRN (15:09)
[2024-07-31] MEDS ORDERED: ONDANSETRON 4 MG/2 ML VIAL IVP PRN (15:09)
--- NOTE | 2024-07-31 15:10 | P.PCN ---
Description of Procedure: Transcatheter Aoritc Valve Replacement Operative report PROCEDURE PERFORMED: 1. Percutaneous Aortic Valve Implantation using a [] mm Evolut-FX +. 2. Transesophageal echocardiography (performed by anesthesia) 3. Ultrasound guided access and repair of [] femoral artery access site by Perclose closure device. 4. Placement of temporary pacemaker wire. 5. Aortic root angiography 6. Pre balloon aortic valvuloplasty with a 20mm True balloon INDICATIONS: 1. 78 year-old with a history of severe symptomatic aortic valve stenosis. PERFORMING PHYSICIANS: 1. Min Patterson, Interventional Cardiology 2. Fernando Del Valle MD, Cardiothoracic Surgeon. SEDATION: General anesthesia provided by anesthesia, see separate note APPROACH: Right femoral artery via percutaneous approach PROCEDURE DESCRIPTION: The patient was discussed at valve clinic with multidisciplinary approach with cardiothoracic surgeon as well as sole inker and thought better treated with TAVR. Risks, benefits, and alternatives of the procedure had been explained to the patient who understood the risks and agreed to proceed. After consents were obtained, patient was brought to the transcatheter aortic valve implantation room in the cardiac lab scientist and general anesthesia was provided by the anesthesiologist (see separate report). Once full body sterile prep was performed, left femoral venous access was obtained and a temporary pacemaker was placed in the RV. Pacing threshholds were checked and deemed appropriate. Next the [] femoral artery was accessed using a modified Seldinger technique, ultrasound guidance and micropuncture technique. A 6 [place]i destination sheath was placed in the left femoral artery. Next, a 6-Bahraini pigtail catheter was advanced into the aorta and positioned in the aortic root, aortic root angiography was performed to determine optimal deployment angle. The right femoral artery was accessed using modified Seldinger technique, micropuncture technique and under direct ultrasound guidance. Femoral angiogram was done showing access in the common femoral artery and a 6Fr sheath was placed. Next preclose technique was performed using 2 Perclose. Initially there was some twisting of the wire due to body habitus requiring stronger wire and an additional Perclose to be placed with the first Perclose dislodged. Next a 0.035 Safari wire was placed in the Aorta via a pigtail catheter. Over that the arteriotomy was serially dilated and a 14 Fr [place] sheath was placed. Next a 6F- AL1 catheter was advanced over a wire to the aortic root. A straight wire was advanced through the catheter and used to cross the severely stenotic valve. The AL1 was then exchanged for a 6Fr pigtail catheter and pressure measurements were obtained. The 0.035 Safari wire was then positioned in the apex. Balloon aortic valvuloplasty was performed with a 20mm True balloon. Next a 29 mm Evolut-FX + was advanced. The valve was then positioned across the aortic valve and confirmed with aortic root angiography. The valve was then deployed in proper position using slow deployment and with rapid pacing in conjuncture with aortic root angiography and NISHANT. The delivery system was withdrawn back into the arch and an aortic root injection in conjunction with NISHANT demonstrated a satisfactory result. There was trace to mild para valvular leak. There was no evidence of any other significant abnormalities. The preclose Perclose was then deployed in the right femoral artery and hemostasis was achieved. The pigtail was then advanced to the level of the iliac bifurcation via the left femoral access. Femoral angiogram was performed that showed no contrast leak. The left femoral angiogram demonstrated an arteriotomy in the common femoral artery and this was repaired using a 6F angioseal device with complete hemostasis. The temporary venous pacemaker was pulled and manual pressure held with hemostasis achieved. The patient was then transported to the post op area in hemodynamically stable condition, requiring no pressor support. COMPLICATIONS: None CONCLUSION: 1. Implantaion of 29 mm Evolut-FX + transcatheter aortic valve via right femoral approach under NISHANT and fluoro guidance with [no] brigid-valvular aortic regurgitation. 2. Placement of temporary pacemaker wire 3. Aortic Root Aortogram. 4. Pre balloon aortic valvuloplasty with a 20mm True balloon RECOMMENDATIONS: The patient will be monitored for hemodynamic and electrical stability.
--- NOTE | 2024-07-31 15:25 | XR ---
EXAMINATION TYPE: XR chest 1V portable DATE OF EXAM: 07/31/2024 3:17 PM COMPARISON: 05/09/2024 CLINICAL INDICATION: Female, 78 years old with history of post TAVR, , FINDINGS: Interval placement of endovascular aortic valve replacement. Heart mild to moderate enlarged. Diffuse interstitial opacity similar to slightly worsened. Suspect ongoing small left pleural effusion. Ericka re degenerative change at the shoulders. IMPRESSION: Some patchy interstitial pulmonary edema similar to slightly worsened. Suspect ongoing small left ple ural effusion. Interval endovascular aortic valve replacement. [facility], Workstation: [email or web address], 07/31/2024 3:23 PM
[2024-07-31 15:38] LABS: HGB 9.6 gm/dL (11.4-16.0); Hypochromasia Marked; MCH 27.3 pg (25.0-35.0); MCHC 30.9 g/dL (31.0-37.0); MCV 88.5 fL (80.0-100.0); Mean Platelet Volume 7.9; Platelet Count 188 k/uL (150-450); RBC 3.51 m/uL (3.80-5.40); RDW 15.6 % (11.5-15.5); WBC 4.4 k/uL (3.8-10.6)
[2024-07-31 15:49] LABS: Glucose,Whole Blood 91 mg/dL (70-110)
[2024-07-31] MEDS: hydrALAZINE HCL 20 MG/ML 1 ML VIAL IM STA (15:50)
[2024-07-31] MEDS: FUROSEMIDE 10 MG/ML 4 ML VIAL IV STA (16:04)
[2024-07-31] MEDS: ALBUTEROL NEBULIZED 2.5 MG/3 ML INHALATION STA (16:28)
[2024-07-31] MEDS: NITROGLYCERIN-D5W PMX 50 MG in DEXTROSE/WATER 1 250ML.BAG IV SCH (16:31)
[2024-07-31 16:44] LABS: ABG HCO3 27 mmol/L (21-25); ABG PCO2 69 mmHg (35-45); ABG PO2 206 mmHg (83-108)
[2024-07-31 16:45] LABS: ABG TCO2 29 mmol/L (19-24); Allen Test Performed? no
[2024-07-31] MEDS: MIDAZOLAM 2 MG/2 ML VIAL IV ONE (17:05)
[2024-07-31 17:57] LABS: Glucose,Whole Blood 105 mg/dL (70-110)
[2024-07-31] MEDS: LACTATED RINGERS 1,000 ML IV SCH (18:30)
[2024-07-31 19:23] LABS: African American GFR (CKD) >90 (>60 ml/min/1.73 sqM); Anion Gap 9 mmol/L; Blood Urea Nitrogen 10 mg/dL (7-17); Calcium 8.6 mg/dL (8.4-10.2); Carbon Dioxide 26 mmol/L (22-30); Chloride 100 mmol/L (98-107); Glucose 100 mg/dL (74-99); Non-African American GFR(CKD) >90 (>60 ml/min/1.73 sqM); Potassium 3.5 mmol/L (3.5-5.1); Sodium 135 mmol/L (137-145)
[2024-07-31] MEDS: METOPROLOL SUCCINATE (ER) 50 MG TAB.ER.24H PO SCH (20:39)
[2024-07-31] MEDS: WARFARIN 5 MG TAB PO SCH (20:39)
[2024-07-31] MEDS: FERROUS SULFATE 325 MG TAB PO SCH (20:39)
[2024-07-31] MEDS: SENNOSIDES-DOCUSATE SODIUM 1 EACH TAB PO SCH (20:39)
[2024-07-31] MEDS: POTASSIUM CHLORIDE ER 20 MEQ TAB.ER PO SCH (21:13)
[2024-07-31] MEDS: HEPARIN SODIUM,PORCINE 5,000 UNIT/ML 1 ML VIAL SQ SCH (23:40)
[2024-08-01 05:28] LABS: ALT 13 U/L (4-34); AST 38 U/L (14-36); African American GFR (CKD) >90 (>60 ml/min/1.73 sqM); Albumin 3.3 g/dL (3.5-5.0); Alkaline Phosphatase 73 U/L (38-126); Anion Gap 8 mmol/L; Blood Urea Nitrogen 10 mg/dL (7-17); Calcium 9.1 mg/dL (8.4-10.2); Carbon Dioxide 27 mmol/L (22-30); Chloride 99 mmol/L (98-107); Glucose 104 mg/dL (74-99); Magnesium 1.8 mg/dL (1.6-2.3); Non-African American GFR(CKD) 89 (>60 ml/min/1.73 sqM); Potassium 3.9 mmol/L (3.5-5.1); Sodium 134 mmol/L (137-145); Total Bilirubin 0.7 mg/dL (0.2-1.3); Total Protein 5.6 g/dL (6.3-8.2)
[2024-08-01] MEDS: PANTOPRAZOLE 40 MG TABLET PO SCH (05:56)
[2024-08-01] MEDS: MAGNESIUM SULFATE-D5W PMX 1 GM in DEXTROSE/WATER 1 100ML.BAG IVPB ONE (05:56)
[2024-08-01] MEDS: POTASSIUM CHLORIDE ER 20 MEQ TAB.ER PO SCH (05:56)
[2024-08-01 07:12] LABS: HCT 31.5 % (34.0-46.0); HGB 9.6 gm/dL (11.4-16.0); Hypochromasia Marked; MCH 27.2 pg (25.0-35.0); MCHC 30.4 g/dL (31.0-37.0); MCV 89.6 fL (80.0-100.0); Platelet Count 233 k/uL (150-450); RBC 3.52 m/uL (3.80-5.40); RDW 15.7 % (11.5-15.5); WBC 9.7 k/uL (3.8-10.6)
--- NOTE | 2024-08-01 08:00 | XR ---
EXAMINATION TYPE: XR chest 1V portable DATE OF EXAM: 08/01/2024 5:29 AM COMPARISON: Chest radiographs from 07/31/2024 CLINICAL INDICATION: Female, 78 years old with history of Post Operative Cardiac Surgery; [facility] TECHNIQUE: XR chest 1V portable Frontal view of the chest. FINDINGS: Lungs/Pleura: There is no evidence of pleural effusion, focal consolidation, or pneumothorax. Pulmonary vascularity: Pulmonary vascular congestion. Heart/mediastinum: Cardiomediastinal silhouette is enlarged and stable. Atherosclerotic calcificatio ns are seen in the aorta. Musculoskeletal: No acute osseous pathology. IMPRESSION: Cardiomegaly with mild pulmonary vascular congestion. [facility], , 08/01/2024 7:57 AM
[2024-08-01 08:14] LABS: INR 1.1 (<1.2); Prothrombin Time 11.7 sec (10.0-12.5)
[2024-08-01] MEDS ORDERED: MAGNESIUM HYDROXIDE 2,400 MG/30 ML CUP PO PRN (09:00)
[2024-08-01] MEDS ORDERED: FUROSEMIDE 20 MG TAB PO SCH (09:00)
--- NOTE | 2024-08-01 09:13 | P.PN ---
Subjective Progress Note Date: 08/01/24 Principal diagnosis: Severe symptomatic aortic valve stenosis. History of hypertension, hyperlipidemia, chronic heart failure with preserved EF, moderate to severe mitral regurgitation, chronic atrial fibrillation on Coumadin for anticoagulation, obstructive sleep apnea, mild restrictive lung disease, morbid obesity, lifelong non-smoker POD #1 percutaneous aortic valve implantation using a 29 mm Evolut FX+ The patient was seen and examined this morning sitting up in recliner in the intensive care unit in no acute distress. She remains in controlled atrial fibrillation, hemodynamically stable although blood pressure is running a bit high. She is on no IV antihypertensives. She underwent successful implantation of TAVR yesterday, in the recovery room she was hypertensive, although she was hypertensive prior to TAVR as well. Per anesthesia she was also dyspneic and confused. She was placed on BiPAP for short time while in the recovery room as well as IV nitro. Neither of which were needed when she got to the intensive care unit. This morning she is on room air with oxygen saturation in the low to mid 90s. Does not complain of significant shortness of breath. Alert and oriented to person, place, time, situation. Objective - Vital Signs Vital signs: Vital Signs Temp 98.1 F 08/01/24 00:00 Pulse 65 08/01/24 07:00 Resp 20 08/01/24 07:00 BP 152/58 08/01/24 07:00 Pulse Ox 91 L 08/01/24 07:00 FiO2 40 07/31/24 19:45 Intake & Output 07/31/24 08/01/24 08/01/24 18:59 06:59 18:59 Intake Total 20 100 Output Total 1060 890 Balance -1040 -790 Weight 109 kg 106 kg Intake: IV 20 100 Lactated Ringers 1,000 ml 0 @ 50 mls/hr IV .Q20H [facility] Rx#:[id number] ceFAZolin 2 gm In Sodium 100 Chloride 0.9% 50 ml @ 100 mls/hr IVPB ONCE ONE Rx# :[id number] Output: Urine 1060 890 Other: Voiding Method Indwelling Catheter # Voids 0 ABP, PAP, CO, CI - Last Documented Arterial Blood Pressure 155/46 - Exam CONSTITUTIONAL: Appears comfortable, cooperative, no acute distress RESPIRATORY: Lungs sounds diminished in the bases bilaterally. Respirations e fiona, nonlabored. Currently on room air with oxygen saturation 2% CARDIOVASCULAR: S1, S2 present. Irregular rate and rhythm, controlled atrial fibrillation on telemetry. Doppler peripheral pulses bilaterally. Bilateral nonpitting edema present. No calf pain or tenderness noted GASTROINTESTINAL: Abdomen soft, nontender, nondistended. Active bowel sounds present 4 quadrants. Tolerating diet GENITOURINARY: Sampson present draining clear, yellow urine. Output 1950 mL since TAVR INTEGUMENTARY: Skin is warm and dry. Bilateral groins soft, dressings removed NEUROLOGIC: Cranial nerves II through XII intact MUSKULOSKELETAL: Able to move all extremities, strength equal bilaterally PSYCHIATRIC: Alert and oriented to person place and time, appropriate affect, intact judgment and insight - Allied health notes Allied health notes reviewed: nursing - Labs CBC & Chem 7: 08/01/24 04:30 08/01/24 04:30 Labs: Abnormal Lab Results - Last 24 Hours (Table) 07/31/24 07/31/24 07/31/24 Range/Units 15:24 16:34 18:54 RBC 3.51 L (3.80-5.40) m/uL Hgb 9.6 L (11.4-16.0) gm/dL Hct 31.0 L (34.0-46.0) % MCHC 30.9 L (31.0-37.0) g/dL RDW 15.6 H (11.5-15.5) % ABG pH 7.20 L (7.35-7.45) ABG pCO2 69 H (35-45) mmHg ABG pO2 206 H (83-108) mmHg ABG HCO3 27 H (21-25) mmol/L ABG Total CO2 29 H (19-24) mmol/L Sodium 135 L (137-145) mmol/L Creatinine 0.47 L (0.52-1.04) mg/dL Glucose 100 H (74-99) mg/dL AST (14-36) U/L Total Protein (6.3-8.2) g/dL Albumin (3.5-5.0) g/dL 08/01/24 08/01/24 Range/Units 04:30 04:30 RBC 3.52 L (3.80-5.40) m/uL Hgb 9.6 L (11.4-16.0) gm/dL Hct 31.5 L (34.0-46.0) % MCHC 30.4 L (31.0-37.0) g/dL RDW 15.7 H (11.5-15.5) % ABG pH (7.35-7.45) ABG pCO2 (35-45) mmHg ABG pO2 (83-108) mmHg ABG HCO3 (21-25) mmol/L ABG Total CO2 (19-24) mmol/L Sodium 134 L (137-145) mmol/L Creatinine (0.52-1.04) mg/dL Glucose 104 H (74-99) mg/dL AST 38 H (14-36) U/L Total Protein 5.6 L (6.3-8.2) g/dL Albumin 3.3 L (3.5-5.0) g/dL - Imaging and Cardiology Chest x-ray: report reviewed, image reviewed Assessment and Plan Assessment: Severe symptomatic aortic valve stenosis, NYHA II, status post percutaneous Aortic Valve Implantation using a 29 mm Evolut-FX + History of hypertension Hyperlipidemia, cholesterol 108, LDL 44 Chronic heart failure with preserved EF, EF 55 to 60% Moderate to severe mitral regurgitation Chronic atrial fibrillation on Coumadin for anticoagulation Obstructive sleep apnea, noncompliant with BiPAP Mild restrictive lung disease, FEV1 63% of predicted Morbidly obese Lifelong non-smoker Plan: Continue to maximize medical therapy with home medication. Will add in losartan for better blood pressure control Will restart Coumadin today Will give 40 mg IV push Lasix today, upon discharge will increase her daily dose to 40 mg daily Awaiting echocardiogram to eval functioning bioprosthetic aortic valve Increase activity as tolerated, PT/OT consulted Transfer orders placed for 3 S. cardiac stepdown unit, transferred bed available Anticipate discharge to home later today versus tomorrow morning More recommendations to follow
[2024-08-01 09:26] VITALS: BMI 47.2
[2024-08-01] MEDS: FUROSEMIDE 10 MG/ML 4 ML VIAL IV STA (09:29)
[2024-08-01] MEDS: ATORVASTATIN 40 MG TAB PO SCH (09:30)
[2024-08-01] MEDS: LOSARTAN 25 MG TAB PO SCH (09:30)
[2024-08-01] MEDS: PSYLLIUM HUSK 100% 6 GM PACKET PO SCH (09:31)
[2024-08-01] MEDS: LACTATED RINGERS 1,000 ML IV SCH (14:51)
[2024-08-01] MEDS: LOSARTAN 25 MG TAB PO STA (15:08)
[2024-08-01 15:34] VITALS: RESP 18
--- NOTE | 2024-08-01 15:46 | CA ---
Transthoracic Echo Report Name: Jonny Garcia Age: 78 Gender: F : 1945 Exam Date: 08/01/2024 08:54 Exam Location: [facility] Ht (in): 59 Wt (lb): 240 Ordering Physician: Светлана Guerra Attending/Referring Phys: [id number], Mari Marketing Content Specialist Sully Whitfield RDCS Procedure CPT: Indications: post TAVR Cardiac Hx: Technical Quality: Fair Contrast 1: Total Dose (mL): Contrast 2: Total Dose (mL): MEASUREMENTS (Male / Female) Normal Values 2D ECHO LV Diastolic Diameter PLAX 5.0 cm 4.2 - 5.9 / 3.9 - 5.3 cm LV Systolic Diameter PLAX 2.6 cm IVS Diastolic Thickness 1.3 cm 0.6 - 1.0 / 0.6 - 0.9 cm LVPW Diastolic Thickness 1.7 cm 0.6 - 1.0 / 0.6 - 0.9 cm LV Relative Wall Thickness 0.6 RV Internal Dim ED PLAX 3.2 cm LVOT Diameter 1.7 cm LV Diastolic Volume MOD BP 98.1 cm??? 67 - 155 / 56 - 104 cm??? LV Systolic Volume MOD BP 25.3 cm??? 22 - 58 / 19 - 49 cm??? LV Ejection Fraction MOD BP 74.2 % >= 55 % LV Cardiac Index MOD BP 2480.8 cm???/min???m??? LV Diastolic Volume MOD 4C 83.9 cm??? LV Systolic Volume MOD 4C 21.6 cm??? LV Ejection Fraction MOD 4C 74.3 % LV Cardiac Index MOD 4C 2122.4 cm???/min???m??? LV Diastolic Length 4C 6.8 cm LV Systolic Length 4C 5.9 cm LV Diastolic Volume MOD 2C 101.9 cm??? LV Systolic Volume MOD 2C 27.3 cm??? LV Ejection Fraction MOD 2C 73.2 % LV Cardiac Index MOD 2C 2539.2 cm???/min???m??? LV Diastolic Length 2C 7.8 cm LV Systolic Length 2C 6.7 cm LA Volume 296.9 cm??? 18 - 58 / 22 - 52 cm??? LA Volume Index 134.8 cm???/m??? 16 - 28 cm???/m??? M-MODE Aortic Root Diameter MM 2.6 cm LA Systolic Diameter MM 6.8 cm LA Ao Ratio MM 2.7 DOPPLER AV Peak Velocity 230.1 cm/s AV Peak Gradient 21.2 mmHg AV Mean Velocity 160.7 cm/s AV Mean Gradient 11.7 mmHg AV Velocity Time Integral 45.9 cm AI Peak Velocity 343.9 cm/s AI Peak Gradient 47.3 mmHg AI Pressure Half Time 721.6 ms LVOT Peak Velocity 128.4 cm/s LVOT Peak Gradient 6.6 mmHg LVOT Velocity Time Integral 27.9 cm LVOT Stroke Volume 61.7 cm??? LVOT Stroke Volume Index 31.0 ml/m??? LVOT Cardiac Index 2102.9 cm???/min???m??? AV Area Cont Eq vti 1.3 cm??? AV Area Cont Eq pk 1.2 cm??? MV Area PHT 2.5 cm??? MR Peak Velocity 641.1 cm/s MR Peak Gradient 164.4 mmHg MR Flow Rate PISA 79.5 cm???/s Mitral E Point Velocity 137.3 cm/s Mitral A Point Velocity 1.1 cm/s Mitral E to A Ratio 128.8 MV Deceleration Time 298.3 ms TR Peak Velocity 324.2 cm/s TR Peak Gradient 42.1 mmHg Right Ventricular Systolic Press 54.9 mmHg FINDINGS Left Ventricle Left ventricular ejection fraction is estimated at 55-60%. Mildly increased septal wall thickness. Severely increased posterior wall thickness. Normal left ventricular systolic function with no obvious regional wall motion abnormalities. Left ventricular cavity size normal. Right Ventricle Moderate right ventricular dilatation. Moderate to severe pulmonary hypertension. Right Atrium Severe right atrial dilatation. Left Atrium Severely increased left atrial volume. Severely increased left atrial area. Mitral Valve Structurally normal mitral valve. Severe mitral regurgitation. No mitral stenosis. Aortic Valve Normally functioning bioprosthetic aortic valve without stenosis with a peak velocity of 2.3 m/s, peak gradient 21mmHg, mean gradient 12mmHg. Mild paravalvular aortic regurgitation. No central aortic regurgitation. Tricuspid Valve Structurally normal tricuspid valve. Mild tricuspid regurgitation. No tricuspid stenosis. Pulmonic Valve Structurally normal pulmonic valve. Mild pulmonic regurgitation. No pulmonic stenosis. Pericardium Small pericardial effusion. Left pleural effusion. Aorta Normal size aortic root and proximal ascending aorta. CONCLUSIONS Diagnosis post TAVR Preserved LV size and function Right ventricular enlargement Severe mitral regurgitation Stable bioprosthetic valve with trace paravalvular leak, acceptable gradients No effusion Previewed by: Dr. Semaj Vega MD (Electronically Signed) Final Date: 01 August 2024 15:45
[2024-08-02 06:40] LABS: Hypochromasia Marked; MCH 26.9 pg (25.0-35.0); MCHC 29.9 g/dL (31.0-37.0); MCV 89.8 fL (80.0-100.0); Mean Platelet Volume 7.7; Platelet Count 229 k/uL (150-450); RBC 3.34 m/uL (3.80-5.40); RDW 15.5 % (11.5-15.5); WBC 8.4 k/uL (3.8-10.6)
[2024-08-02 06:53] LABS: Prothrombin Time 11.4 sec (10.0-12.5)
[2024-08-02 07:01] LABS: African American GFR (CKD) >90 (>60 ml/min/1.73 sqM); Anion Gap 8 mmol/L; Blood Urea Nitrogen 14 mg/dL (7-17); Calcium 8.7 mg/dL (8.4-10.2); Carbon Dioxide 26 mmol/L (22-30); Chloride 98 mmol/L (98-107); Glucose 96 mg/dL (74-99); Magnesium 1.9 mg/dL (1.6-2.3); Non-African American GFR(CKD) 85 (>60 ml/min/1.73 sqM); Sodium 132 mmol/L (137-145)
--- NOTE | 2024-08-02 07:58 | XR ---
EXAMINATION TYPE: XR chest 1V portable DATE OF EXAM: 08/02/2024 6:54 AM COMPARISON: Chest radiograph from one day prior. CLINICAL INDICATION: Female, 78 years old with history of Post Operative Cardiac Surgery; [facility] TECHNIQUE: XR chest 1V portable Frontal view of the chest. FINDINGS: Lungs/Pleura: There is no evidence of pleural effusion, focal consolidation, or pneumothorax. Pulmonary vascularity: Unremarkable. Heart/mediastinum: Cardiomediastinal silhouette is unremarkable. Musculoskeletal: No acute osseous pathology. IMPRESSION: Stable exam no acute cardiopulmonary disease/process. [facility], , 08/02/2024 7:56 AM
[2024-08-02] MEDS: FUROSEMIDE 10 MG/ML 4 ML VIAL IV STA (08:45)
[2024-08-02] MEDS: LOSARTAN 25 MG TAB PO SCH (08:45)
[2024-08-02 10:47] VITALS: TEMP 98.4
--- NOTE | 2024-08-02 13:33 | P.DS ---
Providers Date of admission: 07/31/24 09:34 Expected date of discharge: 08/02/24 Attending physician: Min Patterson DO Consults: 07/24/24 13:43 Consult to Anesthesia Routine Consulting Provider: Anesthesia,Services Consult Reason/Comments: Cardiac Surgery Pre-Op 07/31/24 14:52 Consult Physician Routine Consulting Provider: Fernando Del Valle Consult Reason/Comments: post TAVR Do you want consulting provider notified?: Already Contacted Primary care physician: Anuj Kinney MD Hospital Course: MEDICAL HISTORY: Calcified aortic valve with severe symptomatic aortic valve stenosis, NYHA II History of hypertension Hyperlipidemia, cholesterol 108, LDL 44 Chronic heart failure with preserved EF, EF 55 to 60% Moderate to severe mitral regurgitation Chronic atrial fibrillation on Coumadin for anticoagulation Obstructive sleep apnea, noncompliant with BiPAP Mild restrictive lung disease, FEV1 63% of predicted Morbidly obese Lifelong non-smoker PROCEDURE: Percutaneous aortic valve implantation using a 29 mm Evolut FX+ under NISHANT and fluoroscopy guidance Transesophageal echocardiography performed by anesthesia Ultrasound-guided access and repair of right femoral artery access site by Perclose closure device Placement of temporary pacemaker wire Aortic root angiography Preballoon aortic valvuloplasty with a 20 mm True balloon HISTORY OF PRESENT ILLNESS: This is an 78-year-old female who follows on an outpatient basis with Dr. Cyr for primary care and Dr. Patterson for cardiology. She has a known history of severe aortic stenosis and has been symptomatic with increased exertional dyspnea as well as lower extremity edema. She had been referred to structural heart clinic for evaluation for transcatheter aortic valve replacement after heart catheterization and transesophageal echocardiogram were completed. Echocardiography demonstrated normal systolic function with EF 50-55%, aortic valve area 0.9 cm with a peak/mean gradient 80/50 mmHg. Heart catheterization showed normal coronaries. After workup was completed STS risk score was calculated along with incremental risk and the patient was felt to be high risk for surgical aortic valve repl acement, therefore transcatheter aortic valve replacement was recommended. The usual course of TAVR was discussed in detail the patient, risks and benefits were reviewed, shared decision making between cardiology, surgery, and the patient took place, and the patient consented to proceed with the procedure. HOSPITAL COURSE: The patient was brought to the hospital on 07/31/24, was taken to the extended stay area, prepared in the usual fashion, and subsequently taken to the cardiac catheterization laboratory where Dr. Patterson and Dr. Del Valle completed TAVR procedure under general anesthesia with fluoroscopy and NISHANT. The valve was deployed under rapid ventricular pacing and proceeded without event. At the end of the procedure there was no significant gradient, hemodynamics were felt to be acceptable, and there was no evidence of significant perivalvular leak. Upon completion of the procedure the patient was extubated and was transferred to the cardiovascular intensive care unit where she was recovered and monitored hemodynamically. She did experience hypertension and was started on losartan. Her oxygen was titrated down, she was tolerating oral diet, her pain was controlled, her blood pressure stabilized and she was transferred to [facility] cardiac stepdown unit for further monitoring and postop day 1. Follow-up TTE demonstrated normal left ventricular systolic function, stable bioprosthetic valve with trace perivalvular leak and acceptable gradients without effusion, continued severe mitral regurgitation, and she was ready to be discharged to home on postoperative day #2. She received written and verbal instruction regarding her medications, activity restrictions, signs and symptoms requiring physician notification, and follow-up appointments. Patient Condition at Discharge: Stable Plan - Discharge Summary Discharge Rx Participant: No New Discharge Prescriptions: New Losartan [Cozaar] 25 mg PO DAILY #30 tab Psyllium Husk 100% [Metamucil Packet] 6 gm PO DAILY packet Sennosides-Docusate Sodium [Senokot-S] 2 each PO HS tab Acetaminophen Tab [Tylenol] 650 mg PO Q4HR PRN tab PRN Reason: Fever And/ Or Mild Pain (1-3) Continue Atorvastatin [Lipitor] 40 mg PO DAILY #30 tab Ferrous Sulfate [Iron (65 MG Elemental)] 65 mg PO BID Metoprolol Succinate (ER) [Toprol XL] 50 mg PO BID Warfarin [Coumadin] 5 mg PO DAILY Changed Furosemide [Lasix] 40 mg PO DAILY #30 tab Discharge Medication List Metoprolol Succinate (ER) [Toprol XL] 50 mg PO BID 07/30/23 [History] Atorvastatin [Lipitor] 40 mg PO DAILY #30 tab 05/13/24 [Rx] Ferrous Sulfate [Iron (65 MG Elemental)] 65 mg PO BID 07/26/24 [History] Warfarin [Coumadin] 5 mg PO DAILY 07/26/24 [History] Acetaminophen Tab [Tylenol] 650 mg PO Q4HR PRN tab 08/02/24 [Rx] Furosemide [Lasix] 40 mg PO DAILY #30 tab 08/02/24 [Rx] Losartan [Cozaar] 25 mg PO DAILY #30 tab 08/02/24 [Rx] Psyllium Husk 100% [Metamucil Packet] 6 gm PO DAILY packet 08/02/24 [Rx] Sennosides-Docusate Sodium [Senokot-S] 2 each PO HS tab 08/02/24 [Rx] Follow up Appointment(s)/Referral(s): Min Patterson DO [STAFF PHYSICIAN] - 08/09/24 3:45 pm (You need to be seen at the cardiology office by SCAFFOLD BUILDER Elizabeth 08/09/24 for groin check. You also need to be seen 09/06/24 @ 9:30 for echo and office appointment for 30 day post TAVR appointment, as well as 07/14/25@ 1pm for 1 year post TAVR appointment) Kat Cyr DO [REFERRING] - As Needed Clinic,Structural Heart [NON-STAFF] - 09/06/24 9:00 am (You should be seen for 30 day post TAVR appointment in the TAVR clinic 09/06/24 @ 9 am prior to your appointment at Cardiology, and again 07/14/25 @ 12:30 for 1 year post TAVR appointment before your appointment with Cardiology) Ambulatory/Diagnostic Orders: Basic Metabolic Panel [LAB.AMB] Location: None Selected Basic Metabolic Panel [LAB.AMB] Location: None Selected Complete Blood Count w/diff [LAB.AMB] Location: None Selected Complete Blood Count w/diff [LAB.AMB] Location: None Selected Activity/Diet/Wound Care/Special Instructions: DISCHARGE INSTRUCTIONS: 1. No driving for 1 week, or until physician gives their ok. 2. No lifting, pushing, or pulling more than 5-10 pounds for 1 week. 3. Hold both groins when you cough or sneeze for the next 2 weeks. Bruising is common, but report increased swelling, pain or fever >101F 4. Shower daily. No pool, hot tub, or bathtub for 1 week 5. No powders, lotions, ointments on incisions. 6. No straining, including for bowel movements. Use stool softner if necessary 7. Stairs are not an issue. Go slowly, using handrail and take 1 step at a time. Ambulate several times daily 8. Continue pain control per as needed orders. 9. Take only the medications listed on your discharge form 10. Eat low salt (limited to 2 grams or 2000 milligrams) daily, avoid adding salt, avoid canned/processed foods 11. Take your weight daily in the morning and record, bring with you to your follow up appointments 12. Keep all follow up appointments. You will need a valve clinic appointment at 30 days and 1 year post procedure for follow up 13. You have been referred to and are expected to begin Cardiac Rehab in approximately 4 weeks. 14. You will need antibiotics prior to any dental work, including cleanings, and any surgeries to prevent Endocarditis (bacterial infection in your heart) For any questions or concerns please call your valve coordinators: Светлана or David @ Discharge/Stand Alone Forms: Community Resources, Help In The Home, Personal Robotic Weld Technician Discharge Disposition: HOME SELF-CARE
[2024-08-02 13:34] VITALS: BP 138/80; PULSE 85
--- NOTE | 2024-08-06 16:44 | CDI ---
Documentation Clarification Form Date: 08/06/2024 04:09:28 PM From: Vidya Cruz RN, CCDS Email: [email or web address] Admit Date: 07/31/2024 09:34:00 AM Patient Name: Jonny Garcia Visit Number: [id number] Discharge Date: 08/02/2024 06:33:00 PM ATTENTION: The Clinical Documentation Specialists (CDI) and [facility] Coding Staff appreciate your assistance in clarifying documentation. Please respond to the clarification below the line at the bottom and electronically sign. The CDI & [facility] Coding staff will review the response and follow-up if needed. Please note: Queries are made part of the Legal Health Record. If you have any questions, please contact the author of this message via ITS. Doctor Min Patterson The patient has a history of CHF and was noted to receive IV Lasix. Additional clarification is requested. History/Risk Factors: HTN, HLD, CHF, A fib, RAOUL, [place], restrictive lung disease and calcified aortic valve with severe symptomatic aortic valve stenosis, NYHA II. Patient is s/p TAVR on 07/31. Clinical Indicators: 08/01 PN: "Will give 40 mg IV push Lasix today, upon discharge will increase her daily dose to 40 mg daily." 08/02 Discharge summary: "Chronic heart failure with preserved EF, EF 55 to 60%. She has a known history of severe aortic stenosis and has been symptomatic with increased exertional dyspnea as well as lower extremity edema." 08/01 Pulse OX: 93-91-84 08/01 Echocardiogram Results: EF 55-60%. Moderate right ventricular dilatation. Moderate to severe pulmonary hypertension. Severe mitral regurgitation. 08/01 CXR: Cardiomegaly with mild pulmonary vascular congestion 08/02 CXR: Stable exam no acute cardiopulmonary disease/process Treatment: IV Lasix 20mg x2 on 07/31; IV Lasix 40mg x1 on 08/01; IV Lasix 40mg x1 on 08/02; Metoprolol 50mg po BID 07/31-08/02 In your professional opinion, can you please clarify the CHF: [ ] Acute Diastolic Heart Failure (preserved EF) [ ] Chronic Diastolic Heart Failure (preserved EF) [ X ] Acute on Chronic Diastolic Heart Failure (preserved EF) [ ] Other, please specify [ ] Unable to determine MTDD
--- NOTE | 2024-08-06 16:48 | CDI ---
Documentation Clarification Form Date: 08/06/2024 04:35:30 PM From: Vidya Cruz RN, CCDS Email: [email or web address] Admit Date: 07/31/2024 09:34:00 AM Patient Name: Jonny Garcia Visit Number: [id number] Discharge Date: 08/02/2024 06:33:00 PM ATTENTION: The Clinical Documentation Specialists (CDI) and [facility] Coding Staff appreciate your assistance in clarifying documentation. Please respond to the clarification below the line at the bottom and electronically sign. The CDI & [facility] Coding staff will review the response and follow-up if needed. Please note: Queries are made part of the Legal Health Record. If you have any questions, please contact the author of this message via ITS. Doctor Min Patterson The patient had hypoxia and required significant oxygen supplementation. Additional clarification is requested. History/Risk Factors: HTN, HLD, CHF, A fib, RAOUL, [place], restrictive lung disease and calcified aortic valve with severe symptomatic aortic valve stenosis, NYHA II. Patient is s/p TAVR on 07/31. Clinical Indicators: 07/31 Nursing note: "Patient becoming dyspneic. Bi-pap set up Per RT. Patient to be transferred to ICU." 08/01 PN: "Will give 40 mg IV push Lasix today, upon discharge will increase her daily dose to 40 mg daily." 08/02 Discharge summary: "She has a known history of severe aortic stenosis and has been symptomatic with increased exertional dyspnea as well as lower extremity edema." 07/31 Pulse Ox: 87%-98%; RR 19-26 08/01 Pulse OX: 93%-91%-84%-86%; RR 20-36 08/01 CXR: Cardiomegaly with mild pulmonary vascular congestion Treatment: [id number] NC following procedure; IV Lasix 20mg x2 on 07/31; IV Lasix 40mg x1 on 08/01; IV Lasix 40mg x1 on 08/02 Can you please clarify if there is an additional diagnosis: [ X ] Flash pulmonary edema following TAVR and acute on chronic respiratory failure [ ] No additional diagnosis [ ] Other, please specify [ ] Unable to determine MTDD
== END 2024-08-02 18:33 | disposition home or self-care (01) | DRG 266 ==
LOC: 2ORMAIN 09:34 → 2SICU 17:26 → 3SCARD 08-01 14:31
PROVIDERS: ADMIT Internal Medicine; ATTEND Internal Medicine
PROC: B3101ZZ Fluoroscopy of Thoracic Aorta using Low Osmolar Contrast (ICD-10-PCS; principal; 2024-07-31 12:20)
PROC: B24BZZ4 Ultrasonography of Heart with Aorta, Transesophageal (ICD-10-PCS; principal; 2024-07-31 12:20)
PROC: 02RF38Z Replacement of Aortic Valve with Zooplastic Tissue, Percutaneous Approach (ICD-10-PCS; principal; 2024-07-31 12:20)
PROC: 027F3ZZ Dilation of Aortic Valve, Percutaneous Approach (ICD-10-PCS; principal; 2024-07-31 12:20)
DX: I35.0 Nonrheumatic aortic (valve) stenosis (principal); Z00.6 Encounter for examination for normal comparison and control in clinical research program; I50.33 Acute on chronic diastolic (congestive) heart failure; J96.20 Acute and chronic respiratory failure, unspecified whether with hypoxia or hypercapnia; I11.0 Hypertensive heart disease with heart failure; E66.01 Morbid (severe) obesity due to excess calories; I34.0 Nonrheumatic mitral (valve) insufficiency; I50.32 Chronic diastolic (congestive) heart failure; I48.20 Chronic atrial fibrillation, unspecified; Z68.42 Body mass index [BMI] 45.0-49.9, adult; J98.4 Other disorders of lung; E78.5 Hyperlipidemia, unspecified; G47.33 Obstructive sleep apnea (adult) (pediatric); Z79.01 Long term (current) use of anticoagulants; Z91.199 Patient's noncompliance with other medical treatment and regimen due to unspecified reason
CPT/HCPCS: 33361; 71045; 80048; 80053; 82330; 82805; 83735; 85027; 85610; 86850; 86900; 86901; 93306; 93312; 93320; 93325; 94660

== ENCOUNTER → 2024-08-09 | Outpatient (CLI) | payer MEDICARE ==
[2024-08-09 15:14] LABS: Basophils # (A) 0.04 X 10*3/uL (0.00-0.10); Basophils % (A) 0.5 %; Eosinophils # (A) 0.04 X 10*3/uL (0.04-0.35); Eosinophils % (A) 0.5 %; HCT 32.1 % (37.2-46.3); HGB 9.6 g/dL (12.0-15.0); Lymphocytes # (A) 0.61 X 10*3/uL (0.90-5.00); Lymphocytes % (A) 7.7 %; MCH 25.8 pg (27.0-32.0); MCHC 29.9 g/dL (32.0-37.0); MCV 86.3 FL (80.0-97.0); Mean Platelet Volume 9.7 FL (9.5-12.2); Monocytes # (A) 0.78 X 10*3/uL (0.20-1.00); Monocytes % (A) 9.8 %; NRBC Per 100 WBC 0 X 10*3/uL (0.00-0.01); Neutrophils # (A) 6.45 X 10*3/uL (1.80-7.70); Neutrophils % (A) 81.2 %; Platelet Count 344 X 10*3/uL (140-440); RBC 3.72 X 10*6/uL (4.10-5.20); RDW 15.4 % (11.5-14.5); WBC 7.94 X 10*3/uL (4.50-10.00)
[2024-08-09 15:27] LABS: Blood Urea Nitrogen 8.3 mg/dL (9.0-27.0); Calcium 9.2 mg/dL (8.7-10.3); Carbon Dioxide 26.9 mmol/L (21.6-31.8); Chloride 93 mmol/L (96-109); Glucose 100 mg/dL (70-110); Potassium 4.4 mmol/L (3.5-5.5); Sodium 130 mmol/L (135-145)
== END | disposition home or self-care (01) ==
LOC: LABWHC1 10:20
PROVIDERS: ATTEND Nurse Practitioner Acute Care
DX: I35.0 Nonrheumatic aortic (valve) stenosis (principal); Z95.2 Presence of prosthetic heart valve
CPT/HCPCS: 36415; 80048; 85025

== ENCOUNTER → 2024-09-06 | Outpatient (CLI) | payer MEDICARE ==
[2024-09-06 15:00] LABS: Basophils # (A) 0.04 X 10*3/uL (0.00-0.10); Basophils % (A) 0.7 %; Eosinophils % (A) 1.8 %; HCT 37.2 % (37.2-46.3); HGB 10.9 g/dL (12.0-15.0); Lymphocytes # (A) 0.87 X 10*3/uL (0.90-5.00); Lymphocytes % (A) 15.6 %; MCH 26.5 pg (27.0-32.0); MCHC 29.3 g/dL (32.0-37.0); MCV 90.3 FL (80.0-97.0); Mean Platelet Volume 9.4 FL (9.5-12.2); Monocytes # (A) 0.67 X 10*3/uL (0.20-1.00); NRBC Per 100 WBC 0 X 10*3/uL (0.00-0.01); Neutrophils # (A) 3.88 X 10*3/uL (1.80-7.70); Neutrophils % (A) 69.5 %; Platelet Count 256 X 10*3/uL (140-440); RBC 4.12 X 10*6/uL (4.10-5.20); RDW 18.5 % (11.5-14.5); WBC 5.58 X 10*3/uL (4.50-10.00)
[2024-09-06 15:18] LABS: Blood Urea Nitrogen 9.9 mg/dL (9.0-27.0); Calcium 8.9 mg/dL (8.7-10.3); Carbon Dioxide 26.1 mmol/L (21.6-31.8); Chloride 103 mmol/L (96-109); Glucose 94 mg/dL (70-110); Potassium 3.9 mmol/L (3.5-5.5); Sodium 138 mmol/L (135-145)
== END | disposition home or self-care (01) ==
LOC: LABWHC1 11:31
PROVIDERS: ATTEND Thoracic Surgery (Cardiothoracic Vascular Surgery)
DX: I35.1 Nonrheumatic aortic (valve) insufficiency (principal)
CPT/HCPCS: 36415; 80048; 85025

== ENCOUNTER 2024-10-02 09:27 | Emergency (ER) | payer MEDICARE ==
[2024-10-02 10:24] LABS: Basophils # (A) 0.03 10*3/uL (0.00-0.10); Basophils % (A) 0.8 %; Eosinophils # (A) 0.11 10*3/uL (0.04-0.35); Eosinophils % (A) 2.8 %; HCT 37.6 % (37.2-46.3); HGB 11.8 g/dL (12.0-15.0); Lymphocytes # (A) 0.62 10*3/uL (0.90-5.00); MCHC 31.4 g/dL (32.0-37.0); MCV 89.1 fL (80.0-97.0); Mean Platelet Volume 9.5 fL (9.5-12.2); Monocytes # (A) 0.49 10*3/uL (0.20-1.00); Monocytes % (A) 12.7 %; Neutrophils # (A) 2.61 10*3/uL (1.80-7.70); Neutrophils % (A) 67.4 %; Platelet Count 236 10*3/uL (140-440); RBC 4.22 10*6/uL (4.10-5.20); RDW 17.7 % (11.5-14.5); WBC 3.87 10*3/uL (4.50-10.00)
--- NOTE | 2024-10-02 10:37 | XR ---
EXAMINATION TYPE: XR chest 2V DATE OF EXAM: 10/02/2024 10:33 AM COMPARISON: Chest radiographs from TECHNIQUE: XR chest 2V Frontal and lateral views of the chest. CLINICAL INDICATION:Female, 78 years old with history of difficulty breathing; FINDINGS: Lungs/Pleura: There is no evidence of pleural effusion, focal consolidation, or pneumothorax. Pulmonary vascularity: Unremarkable. Heart/mediastinum: Cardiomediastinal silhouette is enlarged and stable. Postsurgical changes from TA VR. Atherosclerotic calcification of the aorta. Musculoskeletal: No acute osseous pathology. Dextroscoliotic curvature of the thoracolumbar spine. IMPRESSION: Chronic changes without radiographic evidence for acute process. [facility], , 10/02/2024 10:35 AM
[2024-10-02 10:45] LABS: INR 1.9 (<1.2); Partial Thromboplastin Time 28.6 sec (22.0-30.0); Prothrombin Time 19.1 sec (10.0-12.5)
[2024-10-02 10:50] LABS: ALT 14 U/L (4-34); AST 30 U/L (14-36); African American GFR (CKD) >90 (>60 ml/min/1.73 sqM); Albumin 4.1 g/dL (3.5-5.0); Alkaline Phosphatase 78 U/L (38-126); Anion Gap 9 mmol/L; Blood Urea Nitrogen 11 mg/dL (7-17); Calcium 9.8 mg/dL (8.4-10.2); Carbon Dioxide 24 mmol/L (22-30); Chloride 101 mmol/L (98-107); Glucose 92 mg/dL (74-99); Magnesium 1.9 mg/dL (1.6-2.3); Non-African American GFR(CKD) >90 (>60 ml/min/1.73 sqM); Potassium 4.2 mmol/L (3.5-5.1); Sodium 134 mmol/L (137-145); Total Bilirubin 0.8 mg/dL (0.2-1.3); Total Protein 6.7 g/dL (6.3-8.2)
[2024-10-02 10:58] LABS: NT-Pro-B-Type Natriuretic Pept 1860 pg/mL
--- NOTE | 2024-10-02 11:17 | ED ---
General Adult HPI - General Chief complaint: Recheck/Abnormal Lab/Rx Stated complaint: leg swelling Time Seen by Provider: 10/02/24 10:00 Source: patient, RN notes reviewed, old records reviewed Mode of arrival: wheelchair Limitations: no limitations - History of Present Illness Initial comments: Patient is an 78-year-old female who presents emergency department with numerous complaints. Primary complaint is progressive worsening lower extremity edema since having aortic valve replacement surgery in July of this year. Was completed by Dr. Del Valle. Her leg edema has been progressively worsening for the last few months. Has followed up with cardiology. They recommended increasing Lasix dose over the course of the week, placing the patient on 80 mg daily for 1 week recommend 40 mg daily. Patient has not yet done this. Presents over concern for the continued swelling. Denies chest pain or shortness of breath. Denies any fevers, chills, cough. Denies any abdominal pain, nausea or vomiting. Endorses chronic diffuse joint pain. Has a history of A-fib, aortic valve replacement, is on blood thinners. Presents for further evaluation at this time. Lives in assisted living and does feel safe at home managing her own health. Denies any leg pain. Denies any leg redness. Denies any injuries. - Related Data Home Medications Medication Instructions Recorded Confirmed Metoprolol Succinate (ER) [Toprol 50 mg PO BID 07/30/23 07/31/24 XL] Ferrous Sulfate [Iron (65 MG 65 mg PO BID 07/26/24 07/31/24 Elemental)] Warfarin [Coumadin] 5 mg PO DAILY 07/26/24 07/31/24 Previous Rx's Medication Instructions Recorded Atorvastatin [Lipitor] 40 mg PO DAILY #30 tab 05/13/24 Acetaminophen Tab [Tylenol] 650 mg PO Q4HR PRN tab 08/02/24 Furosemide [Lasix] 40 mg PO DAILY #30 tab 08/02/24 Losartan [Cozaar] 25 mg PO DAILY #30 tab 08/02/24 Psyllium Husk 100% [Metamucil 6 gm PO DAILY packet 08/02/24 Packet] Sennosides-Docusate Sodium 2 each PO HS tab 08/02/24 [Senokot-S] Allergies Allergy/AdvReac Type Severity Reaction Status Date / Time sertraline [From Zoloft] Allergy Unknown Verified 10/02/24 09:43 Review of Systems ROS Statement: Those systems with pertinent positive or pertinent negative responses have been documented in the HPI. Review of Systems: CONST: Denies fever EYES: Denies blurry vision ENT: Denies nasal congestion C/V: Denies Chest pain RESP: Denies shortness of breath GI: Denies abdominal pain : Denies dysuria SKIN: Denies rash. MSK: Endorses lower extremity swelling NEURO: Denies headache ROS Other: All systems not noted in ROS Statement are negative. Past Medical History Past Medical History: Atrial Fibrillation, Heart Failure, GI Bleed Additional Past Medical History / Comment(s): Left heart valve needs to be replaced, critical heart murmur History of Any Multi-Drug Resistant Organisms: None Reported Past Surgical History: Orthopedic Surgery, Tonsillectomy Additional Past Surgical History / Comment(s): colostomy, hemorrhoidectomy, broken right ankle repair Past Anesthesia/Blood Transfusion Reactions: No Reported Reaction Additional Past Anesthesia/Blood Transfusion Reaction / Comment(s): had some sort of problem w/spinal in past but unsure what, no problems w/transfusions Past Psychological History: No Psychological Hx Reported Past Alcohol Use History: None Reported - Past Family History Mother Family Medical History: Cancer, Congestive Heart Failure (CHF), CVA/TIA Additional Family Medical History / Comment(s): pancreatic General Exam - General Exam Comments Initial Comments: General: Appears in no acute distress. HEAD: Normal with no signs of head trauma. EYES: EOMI ENT: Hearing grossly intact, normal oropharynx. RESPIRATORY: Clear breath sounds bilaterally. No wheezes, rales, or rhonchi. No hypoxia or respiratory distress. C/V: Regular rate and rhythm. S1 and S2 auscultated, symmetrical bilateral lower extremity pitting edema. Per patient this is chronic., peripheral pulses 2+ and intact throughout ABD: Abd is soft, nontender, nondistended EXT: Normal range of motion, no obvious deformity SKIN: No rashes or lesions observed on exposed skin. Edematous legs. No concern for cellulitis or infection. NEURO: Alert and oriented x 4. Limitations: no limitations Course Vital Signs 10/02/24 10/02/24 10/02/24 09:37 10:57 11:19 Temperature 97.9 F 97.8 F Pulse Rate 97 65 59 L Respiratory 18 16 18 Rate Blood Pressure 191/96 153/67 158/73 O2 Sat by Pulse 95 97 98 Oximetry Medical Decision Making - Medical Decision Making Was pt. sent in by a medical professional or institution (, [facility], LUMP RECEIVER, urgent care, hospital, or [place] [facility] facility...) When possible be specific @ -No Did you speak to anyone other than the patient for history (EMS, parent, family, police, friend...)? What history was obtained from this source @ -No Did you review nursing and triage notes (agree or disagree)? Why? @ -I reviewed and agree with nursing and triage notes Were old charts reviewed (outside hosp., previous admission, EMS record, old EKG, old radiological studies, urgent care reports/EKG's, [place] [facility] facility records)? Report findings @ -Old charts reviewed including EKG from July 2024 which reveals no obvious significant acute change when compared with today's EKG. Differential Diagnosis (chest pain, altered mental status, abdominal pain women, abdominal pain men, vaginal bleeding, weakness, fever, dyspnea, syncope, headache, dizziness, GI bleed, back pain, seizure, CVA, palpatations, mental health, musculoskeletal)? @ -CHF, cellulitis, dependent edema. This list is not all inclusive. EKG interpreted by me (3pts min.). @ -As above X-rays interpreted by me (1pt min.). @ -Chest x-ray shows no evidence of pulm vascular congestion or edema abdomen CT interpreted by me (1pt min.). @ -None done U/S interpreted by me (1pt. min.). @ -None done What testing was considered but not performed or refused? (CT, X-rays, U/S, labs)? Why? @ -None What meds were considered but not given or refused? Why? @ -None Did you discuss the management of the patient with other professionals (professionals i.e. SAADIA Avila, LUMP RECEIVER, lab, RT, psych nurse, social services aide, bench molder, teacher, dispatch officer, rehabilitation caseworker)? Give summary @ -No Was smoking cessation discussed for >3mins.? @ -No Was critical care preformed (if so, how long)? @ -No Were there social determinants of health that impacted care today? How? (Homelessness, low income, unemployed, alcoholism, drug addiction, transportation, low edu. Level, literacy, decrease access to med. care, residential, rehab)? @ -No Was there de-escalation of care discussed even if they declined (Discuss DNR or withdrawal of care, Hospice)? DNR status @ -No What co-morbidities impacted this encounter? (DM, HTN, Smoking, COPD, CAD, Cancer, CVA, ARF, Chemo, Hep., AIDS, mental health diagnosis, sleep apnea, morbid obesity)? @ -CHF, aortic valve replacement Was patient admitted / discharged? Hospital course, mention meds given and route, prescriptions, significant lab abnormalities, going to OR and other pertinent info. @ -Patient presents with progressive lower extremity edema over the course of months. Has known by her business systems architect team. Presents for evaluation. She has no symptoms regarding it. No shortness of breath or dyspnea or cough or congestion. No orthopnea. No paroxysmal nocturnal dyspnea. No chest pain. We will obtain basic workup. She is already on blood thinners so no concern for DVT. She was in agreement this plan. Vitals are within acceptable limits. EKG shows no signs of acute ischemia. Chest x-ray unremarkable. Laboratory studies show a BNP that is borderline at 1860, otherwise unremarkable. I discussed results with patient. She is resting comfortably at this time. As this is a known issue that has been chronic, and she has been following up with her business systems architect regarding, I do believe it is safer to be discharged home. Recommended she go forward with the business systems architect recommendation of 80 mg of Lasix daily for 1 week but I recommend she also contact their office and see if they will see her in the office in the next 1 to 3 days. She was in agreement this plan. Otherwise she is willing to go home and I believe this is reasonable as she has no obvious acute findings and everything seems chronic. No emergent reason for admission at this time. She was in agreement this plan. Strict return precautions discussed. Patient does not require refill of her Lasix prescription. I instructed the patient to follow up with their PCP in the next 1-3 days.. I explained that the patient should return to the emergency department if they experience any worsening symptoms. Strict return precautions were discussed with the patient. The patient expressed understanding of these instructions. I answered all questions that the patient had. The patient was discharged home in good condition with their prescriptions and follow up information. Undiagnosed new problem with uncertain prognosis? @ -No Drug Therapy requiring intensive monitoring for toxicity (Heparin, Nitro, Insulin, Cardizem)? @ -No Were any procedures done? @ -No Diagnosis/symptom? @ -CHF, leg edema Acute, or Chronic, or Acute on Chronic? @ -Acute on chronic Uncomplicated (without systemic symptoms) or Complicated (systemic symptoms)? @ -Uncomplicated Side effects of treatment? @ -No Exacerbation, Progression, or Severe Exacerbation? @ -No Poses a threat to life or bodily function? How? (Chest pain, [place], [place], pneumonia, PE, COPD, DKA, ARF, appy, cholecystitis, CVA, Diverticulitis, Homicidal, Suicidal, threat to staff... and all critical care pts) @ -Unlikely at this time - Lab Data Result diagrams: 10/02/24 10:14 10/02/24 10:14 Lab Results 10/02/24 10/02/24 10/02/24 Range/Units 10:14 10:14 10:14 WBC 3.87 L (4.50-10.00) 10*3/uL RBC 4.22 (4.10-5.20) 10*6/uL Hgb 11.8 L (12.0-15.0) g/dL Hct 37.6 (37.2-46.3) % MCV 89.1 (80.0-97.0) fL MCH 28.0 (27.0-32.0) pg MCHC 31.4 L (32.0-37.0) g/dL Plt Count 236 (140-440) 10*3/uL MPV 9.5 (9.5-12.2) fL Immature Gran % (Auto) 0.3 % Neutrophils % 67.4 % Lymphocytes % 16.0 % Monocytes % 12.7 % Eosinophils % 2.8 % Basophils % 0.8 % Immature Gran # 0.01 (0.00-0.04) 10*3/uL Neutrophils # 2.61 (1.80-7.70) 10*3/uL Lymphocytes # 0.62 L (0.90-5.00) 10*3/uL Monocytes # 0.49 (0.20-1.00) 10*3/uL Eosinophils # 0.11 (0.04-0.35) 10*3/uL Basophils # 0.03 (0.00-0.10) 10*3/uL PT 19.1 H (10.0-12.5) sec INR 1.9 H (<1.2) APTT 28.6 (22.0-30.0) sec Sodium 134 L (137-145) mmol/L Potassium 4.2 (3.5-5.1) mmol/L Chloride 101 (98-107) mmol/L Carbon Dioxide 24 (22-30) mmol/L Anion Gap 9 mmol/L BUN 11 (7-17) mg/dL Creatinine 0.44 L (0.52-1.04) mg/dL Est GFR (CKD-EPI)AfAm >90 (>60 ml/min/1.73 sqM) Est GFR (CKD-EPI)NonAf >90 (>60 ml/min/1.73 sqM) Glucose 92 (74-99) mg/dL Calcium 9.8 (8.4-10.2) mg/dL Magnesium 1.9 (1.6-2.3) mg/dL Total Bilirubin 0.8 (0.2-1.3) mg/dL AST 30 (14-36) U/L ALT 14 (4-34) U/L Alkaline Phosphatase 78 (38-126) U/L NT-Pro-B Natriuret Pep 1860 pg/mL Total Protein 6.7 (6.3-8.2) g/dL Albumin 4.1 (3.5-5.0) g/dL - EKG Data -: EKG Interpreted by Me EKG Comments: 12-lead Electrocardiogram Interpretation Note EKG was reviewed and interpreted by myself. 12-lead ECG performed at 0955 is interpreted by me as revealing atrial fibrillation at a rate of 71 beats per minute. Left axis deviation. QRS durations 83 ms, QTc is 373 ms.. There were no ST or T wave abnormalities to suggest myocardial ischemia or injury. R wave progression across the precordium was satisfactory. By my interpretation this EKG is non-diagnostic for acute ischemia. Disposition Clinical Impression: Leg edema, CHF (congestive heart failure) Disposition: HOME SELF-CARE Condition: Good Additional Instructions: Your progressive swelling of your legs is likely secondary to being mildly volume overloaded. Please take Lasix as prescribed, as your business systems architect did ask you to take 80 mg daily for 1 week I would follow-up with these instructions and follow-up with them in the office. Also follow-up with your PCP soon, attempt to in the next 1 to 3 days. Return to the ER for any worsening symptoms. Is patient prescribed a controlled substance at d/c from ED?: No Referrals: Anuj Kinney MD [Primary Care Provider] - 1-2 days Time of Disposition: 11:17
[2024-10-02 11:22] VITALS: BP 158/73; PULSE 59; RESP 18; TEMP 97.8
== END 2024-10-02 11:28 | disposition home or self-care (01) ==
LOC: EC 09:27
DX: R60.0 Localized edema (principal); I50.9 Heart failure, unspecified; Z88.8 Allergy status to other drugs, medicaments and biological substances
CPT/HCPCS: 36415; 71046; 80053; 83735; 83880; 85025; 85610; 85730; 93005; 99284

== ENCOUNTER → 2024-12-11 | Outpatient (CLI) | payer MEDICARE ==
[2024-12-11 15:05] LABS: Basophils # (A) 0.04 X 10*3/uL (0.00-0.10); Basophils % (A) 0.9 %; Eosinophils # (A) 0.11 X 10*3/uL (0.04-0.35); Eosinophils % (A) 2.5 %; HCT 34.6 % (37.2-46.3); HGB 10.3 g/dL (12.0-15.0); Lymphocytes # (A) 0.86 X 10*3/uL (0.90-5.00); Lymphocytes % (A) 19.8 %; MCH 27.6 pg (27.0-32.0); MCHC 29.8 g/dL (32.0-37.0); MCV 92.8 FL (80.0-97.0); Mean Platelet Volume 9.8 FL (9.5-12.2); Monocytes # (A) 0.68 X 10*3/uL (0.20-1.00); Monocytes % (A) 15.7 %; NRBC Per 100 WBC 0 X 10*3/uL (0.00-0.01); Neutrophils # (A) 2.64 X 10*3/uL (1.80-7.70); Neutrophils % (A) 60.9 %; Platelet Count 244 X 10*3/uL (140-440); RBC 3.73 X 10*6/uL (4.10-5.20); RDW 13.8 % (11.5-14.5); WBC 4.34 X 10*3/uL (4.50-10.00)
[2024-12-11 15:27] LABS: % Iron Saturation 7.19 (12.00-45.00); Ferritin 36.9 ng/mL (10.0-291.0)
== END | disposition home or self-care (01) ==
LOC: LABWHC1 09:22
PROVIDERS: ATTEND Nurse Practitioner Family
DX: D64.9 Anemia, unspecified (principal)
CPT/HCPCS: 36415; 82728; 83540; 83550; 85025